=== PATIENT | female | born 1940 | race Caucasian/White ===

== ENCOUNTER 2018-08-20 00:16 | Inpatient (IN) | payer MEDICARE, OTHER ==
[~2018-08-20] VITALS: Ht 162.6 cm; Wt 74.1 kg
--- NOTE | 2018-08-20 00:30 | ED.ADGEN ---
Past History Past Medical History: A-Fib, Anemia, Anxiety, Arthritis, Bipolar, CAD, Dementia , Depression, GERD, High Cholesterol, Hypertension, IBS, Sciatica, UTI, Other Past Surgical History: Lumbar Laminectomy, Other Adult General Chief Complaint Chief Complaint ".. They sent me over.. I had made threats...".. " I said I was going to climb a tree and jump out of it.. " HPI HPI Patient is a 77 year old female resident of [facility] since 02-19-2017, who presents with hx of suicidal ideation. Pt. reported has hx of increase emotionally, more tearful, . Pt. has hx of depression, Bipolar, OA, GERD, Hemorrhoids, IBS, Restless leg syndrome, Insomnia, CAD, Chronic pain, HTN, Afib , Anemia, PVdz, DM, Hypothyroid, Anxiety, Spinal Stenosis, Chronic pain, Chronic urinary retention, stool incontinence, Dementia. No recent falls or injury. Pt. normally follows with Dr. Dunlap, and Dr. Tee. Pt. Son is Polo- [phone] Yusef Min. Pt. denies any changes of meds. Review of Systems Review of Systems Pt. has no specific complaints. Chronic pain. Constitutional: Denies fever or chills [] Eyes: Denies change in visual acuity, redness, or eye pain [] HENT: Denies nasal congestion or sore throat [] Respiratory: Denies cough or shortness of breath [] Cardiovascular: No additional information not addressed in HPI [] GI: Denies abdominal pain, nausea, vomiting, bloody stools or diarrhea [] : Denies dysuria or hematuria [] Musculoskeletal: Chronic back pain or joint pain [] Integument: Denies rash or skin lesions [] Neurologic: Denies headache, focal weakness or sensory changes [] Endocrine: Denies polyuria or polydipsia [] All other systems were reviewed and found to be within normal limits, except as documented in this note. Family History Family History Not currently available Current Medications Current Medications Current Medications Medications (Trade) Dose Ordered Sig/Elias Start Time Stop Time Status Last Admin Dose Admin Cephalexin HCl (Keflex) 500 mg 1X ONCE 08/20/18 02:00 08/20/18 02:01 DC 08/20/18 02:19 500 MG Magnesium Hydroxide (Milk Of Magnesia) 2,400 mg 1X ONCE 08/20/18 02:00 08/20/18 02:01 DC 08/20/18 02:19 2,400 MG See Nursing for NH meds. Allergies Allergies Allergies Coded Allergies Type Severity Reaction Last Updated Verified adhesive tape Allergy Unknown 08/20/18 Yes amantadine Allergy Unknown 08/20/18 Yes ciprofloxacin Allergy Unknown 08/20/18 Yes diazepam Allergy Unknown 08/20/18 Yes diltiazem Allergy Unknown 08/20/18 Yes fentanyl Allergy Unknown 08/20/18 Yes iodine Allergy Unknown 08/20/18 Yes latex Allergy Unknown 08/20/18 Yes oxycodone Allergy Unknown 08/20/18 Yes promethazine Allergy Unknown 08/20/18 Yes See Nursing Physical Exam Physical Exam Constitutional: , no marked emotional distress, non-toxic appearance. [] HENT: Normocephalic, atraumatic, bilateral external ears normal, oropharynx moist, no oral exudates, nose normal. Scar. Eyes: PERRLA, EOMI, conjunctiva normal, no discharge. [] Neck: Normal range of motion, no tenderness, supple, no stridor. [] Cardiovascular:Heart rate regular rhythm, systolic murmur []PMI to Lt. Lungs & Thorax: Bilateral breath sounds clear to auscultation [] Abdomen: Bowel sounds decreased, distended, tympanic, , soft, no tenderness, no masses, no pulsatile masses. [] Cha Skin: Warm, dry, no erythema, no rash. Poor turgor. Back: Lumbar muscle tenderness, no CVA tenderness. [] Multiple surgery scars. Extremities: No tenderness, no cyanosis, no clubbing, ROM intact, no edema. [] Arthritic changes. Rt. shoulder scar. Neurologic: Alert and oriented X 3,No hx of baseline motor function changes, no focal deficits noted from base line. Psychologic: Affect mild depressive , judgement normal, mood depressed. No specific functional suicidal plan. Current Patient Data Vital Signs Vital Signs Date Time Temp Pulse Resp B/P (MAP) Pulse Ox O2 Delivery O2 Flow Rate FiO2 08/20/18 00:16 97.6 79 93 Lab Results Laboratory Tests Test 08/20/18 00:25 08/20/18 00:35 Urine Collection Type U cath Urine Color Yellow Urine Clarity Cloudy Urine pH 8.0 Urine Specific [place] 1.020 Urine Protein 30 mg/dl (NEG-TRACE) Urine Glucose (UA) Neg mg/dL (NEG) Urine Ketones (Stick) Neg mg/dL (NEG) Urine Blood Small (NEG) Urine Nitrite Pos (NEG) Urine Bilirubin Neg (NEG) Urine Urobilinogen Dipstick 0.2 mg/dL (0.2 mg/dL) Urine Leukocyte Esterase Large (NEG) Urine RBC 1-2 /HPF (0-2) Urine WBC >40 /HPF (0-4) Urine Squamous Epithelial Cells None /LPF Urine Bacteria Many /HPF (0-FEW) White Blood Count 10.3 x10^3/uL (4.0-11.0) Red Blood Count 4.47 x10^6/uL (3.50-5.40) Hemoglobin 12.8 g/dL (12.0-15.5) Hematocrit 38.4 % (36.0-47.0) Mean Corpuscular Volume 86 fL (79-100) Mean Corpuscular Hemoglobin 29 pg (25-35) Mean Corpuscular Hemoglobin Concent 33 g/dL (31-37) Red Cell Distribution Width 15.0 % (11.5-14.5) H Platelet Count 249 x10^3/uL (140-400) Neutrophils (%) (Auto) 54 % (31-73) Lymphocytes (%) (Auto) 27 % (24-48) Monocytes (%) (Auto) 10 % (0-9) H Eosinophils (%) (Auto) 8 % (0-3) H Basophils (%) (Auto) 1 % (0-3) Neutrophils # (Auto) 5.5 x10^3uL (1.8-7.7) Lymphocytes # (Auto) 2.8 x10^3/uL (1.0-4.8) Monocytes # (Auto) 1.0 x10^3/uL (0.0-1.1) Eosinophils # (Auto) 0.9 x10^3/uL (0.0-0.7) H Basophils # (Auto) 0.1 x10^3/uL (0.0-0.2) Platelet Estimate Adequate (ADEQUATE) Erythrocyte Sedimentation Rate 10 (0-25) Prothrombin Time 10.2 SEC (9.4-11.4) Prothrombin Time INR 1.0 (0.9-1.1) PTT 23 SEC (23-33) Sodium Level 138 mmol/L (136-145) Potassium Level 3.9 mmol/L (3.5-5.1) Chloride Level 100 mmol/L (98-107) Carbon Dioxide Level 32 mmol/L (21-32) Anion Gap 6 (6-14) Blood Urea Nitrogen 17 mg/dL (7-20) Creatinine 0.8 mg/dL (0.6-1.0) Estimated GFR (Cockcroft-Gault) 69.9 Glucose Level 112 mg/dL (70-99) H Calcium Level 8.9 mg/dL (8.5-10.1) Magnesium Level 1.7 mg/dL (1.8-2.4) L Total Bilirubin 0.3 mg/dL (0.2-1.0) Direct Bilirubin 0.1 mg/dL (0.0-0.2) Aspartate Amino Transferase (AST) 19 U/L (15-37) Alanine Aminotransferase (ALT) 24 U/L (14-59) Alkaline Phosphatase 93 U/L (46-116) Creatine Kinase 54 U/L (26-192) Troponin I Quantitative < 0.017 ng/mL (0-0.055) RR-Mbs-F-Type Natriuretic Peptide 370 pg/mL (0-449) Total Protein 6.9 g/dL (6.4-8.2) Albumin 3.4 g/dL (3.4-5.0) Lipase 70 U/L (73-393) L EKG EKG My interpretation EKG shows a sinus rhythm at 73 bpm. No acute morphology appreciated[] Radiology/Procedures Radiology/Procedures My interpretation of chest portion of acute abdomen film shows elevated right diaphragm. No free air under the diaphragm. Increased stool. Right shoulder hardware. Scoliosis and kyphosis and lumbar hardware from previous surgeries.[] Course & Med Decision Making Course & Med Decision Making Pertinent Labs and Imaging studies reviewed. (See chart for details), Pt. admitted to Dr. Molina and consult to Dr. Glass for medical issues. [] Final Impression Final Impression 1. Suicidal Ideation 2. Depression 3. UTI 4. Hypomagnesium 5. Constipation 6. Chronic Pain Dragon Disclaimer Dragon Disclaimer This electronic medical record was generated, in whole or in part, using a voice recognition dictation system. PADMA CERON MD Aug 20, 2018 00:30
--- NOTE | 2018-08-20 00:48 | EKG ---
[address] [address] Test Date: 2018-08-20 Test Time: 00:43:33 Pat Name: MARGARET MCCRAY Department: Room: Gender: F Street Inspector: : 1940 Requested By: PADMA CERON Order Number: [id number] Reading MD: Ki Squires Measurements Intervals [place] Rate: 73 P: 38 VT: 176 QRS: 14 QRSD: 92 T: 24 QT: 422 QTc: 469 Interpretive Statements SINUS RHYTHM NORMAL ECG RI6.01 Unconfirmed report No previous ECG available for comparison Electronically Signed On 08-23-2018 10:17:04 CDT by Ki Squires
[2018-08-20 01:01] LABS: BILIRUBIN,URINE NEG (NEG); CLARITY,URINE CLOUDY; COLOR,URINE YELLOW; GLUCOSE,URINE NEG (NEG); NITRITE,URINE POS (NEG); UROBILINOGEN,URINE 0.2 mg/dL (0.2 mg/dL)
[2018-08-20 01:02] LABS: BACTERIA,URINE MANY /HPF (0-FEW); WBC,URINE >40 /HPF (0-4)
[2018-08-20 01:02] LABS: BASO # 0.1 x10^3/uL (0.0-0.2); BASO % 1 % (0-3); EOS # 0.9 x10^3/uL (0.0-0.7); EOS % 8 % (0-3); HEMATOCRIT 38.4 % (36.0-47.0); HEMOGLOBIN 12.8 g/dL (12.0-15.5); LYMPH # 2.8 x10^3/uL (1.0-4.8); LYMPH % 27 % (24-48); MEAN CORPUSCULAR HEMOGLOBIN 29 pg (25-35); MEAN CORPUSCULAR HGB CONC 33 g/dL (31-37); MEAN CORPUSCULAR VOLUME 86 fL (79-100); MONO % 10 % (0-9); NEUT # 5.5 x10^3uL (1.8-7.7); NEUT % 54 % (31-73); PLATELET COUNT 249 x10^3/uL (140-400); RED BLOOD COUNT 4.47 x10^6/uL (3.50-5.40); WHITE BLOOD COUNT 10.3 x10^3/uL (4.0-11.0)
[2018-08-20 01:14] LABS: ALBUMIN 3.4 g/dL (3.4-5.0); CALCIUM 8.9 mg/dL (8.5-10.1); CREATININE 0.8 mg/dL (0.6-1.0); DIRECT BILIRUBIN 0.1 mg/dL (0.0-0.2); GFR 69.9; MAGNESIUM 1.7 mg/dL (1.8-2.4); POTASSIUM 3.9 mmol/L (3.5-5.1); TOTAL BILIRUBIN 0.3 mg/dL (0.2-1.0); TOTAL PROTEIN 6.9 g/dL (6.4-8.2)
[2018-08-20 01:17] LABS: PLT ESTIMATE ADEQUATE (ADEQUATE)
[2018-08-20 01:50] LABS: SEDIMENTATION RATE 10 (0-25)
[2018-08-20] MEDS ORDERED: CEPHALEXIN 250 MG CAPSULE PO ONE (02:00)
[2018-08-20] MEDS ORDERED: MAGNESIUM HYDROXIDE 2,400 MG/30 ML ORAL.SUSP. PO ONE (02:00)
[2018-08-20] MEDS ORDERED: ACETAMINOPHEN 325 MG TABLET PO PRN (03:15)
[2018-08-20] MEDS ORDERED: METHYL SALICYLATE/MENTHOL TOPICAL OINTMENT 29GM TUBE. TP PRN (03:15)
[2018-08-20] MEDS ORDERED: MAGNESIUM HYDROXIDE 2,400 MG/30 ML ORAL.SUSP. PO PRN (03:15)
[2018-08-20] MEDS ORDERED: MAG HYDROX/AL HYDROX/SIMETH 30 ML ORAL.SUSP PO PRN (03:15)
[2018-08-20] MEDS ORDERED: PRAM0.255 PO (03:50)
[2018-08-20] MEDS ORDERED: METH1TAB20 PO (03:50)
[2018-08-20] MEDS ORDERED: HYDR10TA2 PO (03:50)
[2018-08-20] MEDS ORDERED: VENL150C PO (03:50)
[2018-08-20] MEDS ORDERED: MULT1TAB52 PO (03:50)
[2018-08-20] MEDS ORDERED: LATA2.5D3 EACHEYE (03:50)
[2018-08-20] MEDS ORDERED: LISI10TA2 PO (03:50)
[2018-08-20] MEDS ORDERED: SENN1TAB15 PO (03:50)
[2018-08-20] MEDS ORDERED: OXYC10TA PO (03:50)
[2018-08-20] MEDS ORDERED: CLOP75TA57 PO (03:50)
[2018-08-20] MEDS ORDERED: LINA145C PO (03:50)
[2018-08-20] MEDS ORDERED: MELA3TAB2 PO (03:50)
[2018-08-20] MEDS ORDERED: BISA5TAB4 PO (03:50)
[2018-08-20] MEDS ORDERED: METO25TA4 PO (03:50)
[2018-08-20] MEDS ORDERED: HYDR30CR61 TP (03:50)
[2018-08-20] MEDS ORDERED: LEVO25TA4 PO (03:50)
[2018-08-20] MEDS ORDERED: POLY17PO5 PO (03:50)
[2018-08-20] MEDS ORDERED: ASCO500T2 PO (03:50)
[2018-08-20] MEDS ORDERED: GABA600T2 PO (03:50)
[2018-08-20] MEDS ORDERED: HYDR59LO TP (03:50)
[2018-08-20] MEDS ORDERED: ROPI1TAB PO (03:50)
[2018-08-20] MEDS ORDERED: MAGN64TA7 PO (03:50)
[2018-08-20] MEDS ORDERED: ATOR10TA60 PO (03:50)
[2018-08-20] MEDS ORDERED: ONDA4TAB10 PO (03:50)
[2018-08-20] MEDS ORDERED: TRAZ-85 PO (03:50)
[2018-08-20 04:02] VITALS: BP 192/94
[2018-08-20] MEDS ORDERED: ONDANSETRON ODT 4 MG TAB.RAPDIS PO PRN (04:15)
[2018-08-20] MEDS: LEVOTHYROXINE 25 MCG TABLET. PO SCH (05:07)
[2018-08-20 06:29] VITALS: BP 153/96
--- NOTE | 2018-08-20 07:47 | RAD ---
Indication abdominal distention, diarrhea. TECHNIQUE: PA chest x-ray with 3 abdominal radiographs COMPARISON: None FINDINGS: Heart is normal in size. There is elevation of right hemidiaphragm which is nonspecific. Lungs are clear. No pneumothorax or pleural effusion. Large amount of diffuse colonic stool burden seen. No evidence of pneumoperitoneum. Mild scoliosis of the thoracolumbar spine. Status post fusion of the lower lumbar spine. 2 well-circumscribed round radiopacities are seen projecting over the left upper quadrant largest measuring 1.5 cm. IMPRESSION: 1. Large amount of colonic stool burden, patient may be constipated. No radiographic evidence of small bowel obstruction. 2. Couple of round radiopaque densities in the left upper quadrant, nonspecific may be external or pelvis in the stomach. Electronically signed by: Bryan Hernandez DO (08/20/2018 7:44 AM) [facility]
[2018-08-20] MEDS: MULTIVITAMIN with MINERAL TABLET. PO SCH (08:25)
[2018-08-20] MEDS: oxyCODONE IR 5 MG TABLET PO PRN ×3 (08:25→20:04)
[2018-08-20] MEDS: MAGNESIUM CHLORIDE ER 64 MG TABLET.ER PO SCH ×2 (08:25→20:01)
[2018-08-20] MEDS: CLOPIDOGREL BISULFATE 75 MG TABLET PO SCH (08:25)
[2018-08-20] MEDS: LISINOPRIL 10 MG TABLET PO SCH (08:26)
[2018-08-20] MEDS: METOPROLOL TART IMMED RELEASE 25 MG TABLET PO SCH ×2 (08:26→20:01)
[2018-08-20] MEDS: rOPINIRole 2 MG TABLET. PO SCH ×2 (08:26→20:00)
[2018-08-20] MEDS: CEPHALEXIN 250 MG CAPSULE PO SCH ×3 (08:26→20:00)
[2018-08-20] MEDS: ASCORBIC ACID 500 MG TABLET PO SCH (08:26)
[2018-08-20] MEDS: VENLAFAXINE 50 MG TABLET. PO SCH ×3 (08:27→20:01)
[2018-08-20] MEDS: GABAPENTIN 300 MG CAPSULE. PO SCH ×2 (08:27→20:01)
[2018-08-20] MEDS: SENNOSIDES/DOCUSATE 8.6/50MG TABLET. PO SCH ×2 (08:27→20:01)
[2018-08-20] MEDS: METHENAMINE HIPPURATE 1 GM TABLET PO SCH ×2 (08:28→20:08)
[2018-08-20] MEDS: LINACLOTIDE 145 MCG CAPSULE. PO SCH (08:28)
[2018-08-20] MEDS: HYDROCORTISONE 2.5% RECTAL CREAM 30GM TUBE. RC SCH ×2 (09:00→20:09)
[2018-08-20] MEDS ORDERED: POLYETHYLENE GLYCOL 3350 17 GM PACKET. PO PRN (09:00)
[2018-08-20] MEDS: BISACODYL TAB 5 MG TABLET.DR. PO PRN (10:59)
[2018-08-20 16:03] VITALS: BP 155/72
[2018-08-20] MEDS: PRAMIPEXOLE 0.25 MG TABLET. PO SCH (20:03)
[2018-08-20] MEDS: hydrOXYzine HCL 10 MG TABLET PO SCH (20:03)
[2018-08-20] MEDS: LACTOBACILLUS RHAMNOSUS GG 1 CAPSULE. PO SCH (20:03)
[2018-08-20] MEDS: traZODone 50 MG TABLET. PO SCH (20:08)
[2018-08-20] MEDS: MELATONIN 3 MG TABLET PO SCH (20:08)
[2018-08-20] MEDS: LATANOPROST 0.005% OPHTH SOLUTION 2.5ML BOTTLE. OU SCH (20:09)
--- NOTE | 2018-08-20 20:11 | HP ---
ADMIT DATE: 08/20/2018 PSYCHIATRIC ADMISSION HISTORY/EVALUATION IDENTIFYING DATA: The patient is a 77-year-old female who was referred to us from [facility] by Dr. Conrad, her primary care physician on account of marked worsening of her mood lability. She has been depressed, tearful, made suicidal statements, states that she had a plan, but would not share it with staff. Later, she told the staff that she wanted to make herself fall. She has been labile, tearful; at one point said she climbed onto a tree, jumped out of it, and landed on her head. CHIEF COMPLAINT: "I have gotten too much medical problems. One day I was in the restroom and found a lot of my intestines in my hand. I pressed the button, no one would come. Nothing is working out right. I might as well be ." The patient then added "I can't climb up a tree even though if I , I want to be up the tree jumping out." The patient currently denies current suicidal ideation. HISTORY OF PRESENT ILLNESS: Reportedly, the patient has a past diagnosis of bipolar disorder, but she denies this. She states she has been depressed in the past and has been getting depressed lately. She admits to sleep and appetite changes, overwhelmed by her medical problems and made the above statement, which she minimizes. Cognitively, she is reasonably intact. PAST PSYCHIATRIC HISTORY: As above. PAST MEDICAL HISTORY: Chronic pain; hypertension; impaired ambulation, in wheelchair; heart disease; atrial fibrillation; anemia; peripheral vascular disease; hyperlipidemia; diabetes mellitus; hypothyroidism; spinal stenosis; osteoarthritis; GERD; hemorrhoids; irritable bowel syndrome; atrial fibrillation; restless leg syndrome. DIET: Regular. ACCU-CHEKS: Daily. Takes medications whole, ambulates wheelchair walker. UA in the ER. Reflex to culture. ALLERGIES: ADHESIVE TAPE, AMANTADINE, CARDIZEM, CIPRO, CORDARONE, VALIUM, FENTANYL, IODINE, LATEX, OXYCODONE, PHENERGAN, REGLAN. CODE STATUS: DNR. CURRENT PSYCHOTROPICS: Melatonin 3 mg at bedtime, trazodone 50 at bedtime, Effexor 150 mg daily, Atarax 10 mg at bedtime. FAMILY HISTORY: Noncontributory. SOCIAL HISTORY: No history of alcohol, drug abuse, physical, sexual or elder abuse. She is not known to be a perpetrator. REACTION TO HOSPITALIZATION: The patient accepting of this. ASSETS: Placement at [facility], supportive family. The patient is being admitted by Yusef Min, her son and she signed herself as well. MENTAL STATUS EXAM: The patient was seen at length in her room. She is in a wheelchair. She was overwhelmed with her medical problems, prompting her statement of suicide. Speech coherent, abstraction fair. Computation, she was able to do one step on serial 7's, no more. Remembered 2/3 objects at 3 minutes. Attention span short. Language function intact. Mood and affect somewhat depressed. Again, no active suicidal ideation. LABORATORY DATA: Reviewed. IMPRESSION: Bipolar 1 disorder, depressed with psychotic features; major depressive disorder, rule out psychotic features; anxiety disorder, unspecified; impulse control disorder, unspecified; probable urinary tract infection. Rest diagnoses as above. PLAN: Admit to Geropsychiatry Unit at [facility]. I will see the patient daily individually from a psychiatric standpoint, medical followup with Dr. Glass/Dr. Chatterjee. Continue the patient on her current psychotropics, observe baseline and adjust as clinically indicated. ESTIMATED LENGTH OF STAY: 10-12 days. DISPOSITION: Discharge plans back to [facility] when stable. MAN Kamila ROYAL MD DR: ALLAN/luiz JOB#: [id number] / [id number]
[2018-08-20] MEDS: ATORVASTATIN CALCIUM 10 MG TABLET. PO SCH (20:22)
--- NOTE | 2018-08-20 23:08 | PDOC ---
Exam Note: Kt Note: Please also refer to the separate dictated note~for this date of service dictated separately.~Patient seen individually. Discussed the patient with Nursing staff reviewed the chart.~Reviewed interim history and current functioning. Reviewed vital signs,~Labs/ Radiology~and current medications noted below. Continue current treatment with the changes noted in the dictated addendum note Assessment: Vital Signs: Vital Signs Date Time Temp Pulse Resp B/P (MAP) Pulse Ox O2 Delivery O2 Flow Rate FiO2 08/20/18 21:04 18 08/20/18 20:04 92 08/20/18 20:01 81 155/72 08/20/18 16:03 97.2 Room Air I&O Intake and Output 08/20/18 07:00 Intake Total 0 ml Output Total 1300 ml Balance -1300 ml Intake Oral 0 ml Output Urine Total 1300 ml Labs: Laboratory Tests Test 08/20/18 00:25 08/20/18 00:35 Urine Collection Type U cath Urine Color Yellow Urine Clarity Cloudy Urine pH 8.0 Urine Specific [place] 1.020 Urine Protein 30 mg/dl (NEG-TRACE) Urine Glucose (UA) Neg mg/dL (NEG) Urine Ketones (Stick) Neg mg/dL (NEG) Urine Blood Small (NEG) Urine Nitrite Pos (NEG) Urine Bilirubin Neg (NEG) Urine Urobilinogen Dipstick 0.2 mg/dL (0.2 mg/dL) Urine Leukocyte Esterase Large (NEG) Urine RBC 1-2 /HPF (0-2) Urine WBC >40 /HPF (0-4) Urine Squamous Epithelial Cells None /LPF Urine Bacteria Many /HPF (0-FEW) White Blood Count 10.3 x10^3/uL (4.0-11.0) Red Blood Count 4.47 x10^6/uL (3.50-5.40) Hemoglobin 12.8 g/dL (12.0-15.5) Hematocrit 38.4 % (36.0-47.0) Mean Corpuscular Volume 86 fL (79-100) Mean Corpuscular Hemoglobin 29 pg (25-35) Mean Corpuscular Hemoglobin Concent 33 g/dL (31-37) Red Cell Distribution Width 15.0 % (11.5-14.5) H Platelet Count 249 x10^3/uL (140-400) Neutrophils (%) (Auto) 54 % (31-73) Lymphocytes (%) (Auto) 27 % (24-48) Monocytes (%) (Auto) 10 % (0-9) H Eosinophils (%) (Auto) 8 % (0-3) H Basophils (%) (Auto) 1 % (0-3) Neutrophils # (Auto) 5.5 x10^3uL (1.8-7.7) Lymphocytes # (Auto) 2.8 x10^3/uL (1.0-4.8) Monocytes # (Auto) 1.0 x10^3/uL (0.0-1.1) Eosinophils # (Auto) 0.9 x10^3/uL (0.0-0.7) H Basophils # (Auto) 0.1 x10^3/uL (0.0-0.2) Platelet Estimate Adequate (ADEQUATE) Erythrocyte Sedimentation Rate 10 (0-25) Prothrombin Time 10.2 SEC (9.4-11.4) Prothrombin Time INR 1.0 (0.9-1.1) PTT 23 SEC (23-33) Sodium Level 138 mmol/L (136-145) Potassium Level 3.9 mmol/L (3.5-5.1) Chloride Level 100 mmol/L (98-107) Carbon Dioxide Level 32 mmol/L (21-32) Anion Gap 6 (6-14) Blood Urea Nitrogen 17 mg/dL (7-20) Creatinine 0.8 mg/dL (0.6-1.0) Estimated GFR (Cockcroft-Gault) 69.9 Glucose Level 112 mg/dL (70-99) H Calcium Level 8.9 mg/dL (8.5-10.1) Magnesium Level 1.7 mg/dL (1.8-2.4) L Total Bilirubin 0.3 mg/dL (0.2-1.0) Direct Bilirubin 0.1 mg/dL (0.0-0.2) Aspartate Amino Transferase (AST) 19 U/L (15-37) Alanine Aminotransferase (ALT) 24 U/L (14-59) Alkaline Phosphatase 93 U/L (46-116) Creatine Kinase 54 U/L (26-192) Troponin I Quantitative < 0.017 ng/mL (0-0.055) LV-Gkp-B-Type Natriuretic Peptide 370 pg/mL (0-449) Total Protein 6.9 g/dL (6.4-8.2) Albumin 3.4 g/dL (3.4-5.0) Lipase 70 U/L (73-393) L Thyroid Stimulating Hormone (TSH) 1.934 uIU/mL (0.358-3.740) Treponema pallidum Antibody Nonreactive (Nonreactive) Current Medications: Meds: Current Medications Magnesium Hydroxide (Milk Of Magnesia) 2,400 mg 1X ONCE PO Last administered on 08/20/18at 02:19; Start 08/20/18 at 02:00; Stop 08/20/18 at 02:01; Status DC Cephalexin HCl (Keflex) 500 mg 1X ONCE PO Last administered on 08/20/18at 02: 19; Start 08/20/18 at 02:00; Stop 08/20/18 at 02:01; Status DC Cephalexin HCl (Keflex) 500 mg TID PO Last administered on 08/20/18at 20:00; Start 08/20/18 at 09:00 Acetaminophen (Tylenol) 650 mg PRN Q6HRS PRN PO PAIN / TEMP; Start 08/20/18 at 03:15 Multi-Ingredient Ointment (Analgesic [place]) 1 day[place] PRN QID PRN TP MUSCLE PAIN; Start 08/20/18 at 03:15 Al Hydroxide/Mg Hydroxide (Mylanta Plus Xs) 15 ml PRN AFTMEALHC PRN PO DYSPEPSIA; Start 08/20/18 at 03:15; Stop 08/20/18 at 17:00; Status DC Magnesium Hydroxide (Milk Of Magnesia) 2,400 mg PRN QHS PRN PO CONSTIPATION; Start 08/20/18 at 03:15; Stop 08/20/18 at 17:00; Status DC Ascorbic Acid (Vitamin C) 500 mg DAILY PO Last administered on 08/20/18at 08:26 ; Start 08/20/18 at 09:00 Bisacodyl (Dulcolax Tab) 5 mg PRN DAILY PRN PO CONSTIPATION Last administered on 08/20/18at 10:59; Start 08/20/18 at 03:45 Clopidogrel Bisulfate (Plavix) 75 mg DAILY PO Last administered on 08/20/18at 08:25; Start 08/20/18 at 09:00 Hydrocortisone (Proctosol-Hc) 1 day[place] BID RC Last administered on 08/20/18 20: 09; Start 08/20/18 at 09:00 Linaclotide (Linzess) 145 mcg DAILY PO Last administered on 08/20/18 08:28; Start 08/20/18 at 09:00 Lisinopril (Prinivil) 10 mg DAILY PO Last administered on 08/20/18 08:26; Start 08/20/18 at 09:00 Methenamine Hippurate (Hiprex) 1 gm BID PO Last administered on 08/20/18 20: 08; Start 08/20/18 at 09:00 Metoprolol Tartrate (Lopressor) 25 mg BID PO Last administered on 08/20/18 20 :01; Start 08/20/18 at 09:00 Ondansetron HCl (Zofran Odt) 4 mg PRN Q8HRS PRN PO NAUSEA/VOMITING; Start at 04:15 Senna/Docusate Sodium (Senna Plus) 1 tab BID PO Last administered on 20:01; Start 08/20/18 at 09:00 Atorvastatin Calcium (Lipitor) 10 mg QHS PO Last administered on 08/20/18 20: 22; Start 08/20/18 at 21:00 Gabapentin (Neurontin) 600 mg BID PO Last administered on 08/20/18 20:01; Start 08/20/18 at 09:00 Hydrocortisone (Cortaid) 1 dayton PRN BID PRN TP RASH RIGHT ARM; Start 08/20/18 at 04:30 Hydroxyzine HCl (Atarax) 10 mg QHS PO Last administered on 08/20/18 20:03; Start 08/20/18 at 21:00 Latanoprost (Xalatan) 1 drop QHS OU Last administered on 08/20/18 20:09; Start 08/20/18 at 21:00 Levothyroxine Sodium (Synthroid) 25 mcg DAILY06 PO Last administered on 05:07; Start 08/20/18 at 06:00 Magnesium Chloride (Mag Delay) 64 mg BID PO Last administered on 08/20/18 20: 01; Start 08/20/18 at 09:00 Melatonin 3 mg QHS PO Last administered on 08/20/18 20:08; Start 08/20/18 at 21:00 Multivitamins/ Calcium (Thera-M Plus) 1 tab DAILY PO Last administered on 08/20 08:25; Start 08/20/18 at 09:00 Oxycodone HCl (Roxicodone) 20 mg PRN Q4HRS PRN PO PAIN Last administered on 20:04; Start 08/20/18 at 06:00 Polyethylene Glycol (miraLAX) 17 gm PRN DAILY PRN PO CONSTIPATION; Start 08/20 at 09:00; Stop 08/21/18 at 09:00 Pramipexole Dihydrochloride (miraPEX) 0.125 mg QHS PO Last administered on 20:03; Start 08/20/18 at 21:00 Ropinirole HCl (Requip) 2 mg BID PO Last administered on 08/20/18 20:00; Start 08/20/18 at 09:00 Trazodone HCl (Desyrel) 50 mg QHS PO Last administered on 08/20/18 20:08; Start 08/20/18 at 21:00 Venlafaxine HCl (Effexor) 50 mg TID PO Last administered on 08/20/18 20:01; Start 08/20/18 at 09:00 Olanzapine (ZyPREXA ZYDIS) 2.5 mg PRN Q2HR PRN PO PSYCHOSIS Last administered on 08/20/18 14:08; Start 08/20/18 at 04:00 Lactobacillus Rhamnosus (Culturelle) 1 cap BID PO Last administered on 20:03; Start 08/20/18 at 21:00 Al Hydroxide/Mg Hydroxide (Mylanta Plus Xs) 15 ml DAILY PO ; Start 08/21/18 at 09:00 Magnesium Hydroxide (Milk Of Magnesia) 2,400 mg DAILY PO ; Start 08/21/18 at 09 :00 Polyethylene Glycol (miraLAX) 17 gm DAILY PO ; Start 08/21/18 at 09:00 Active Scripts Active Reported Anusol-Hc (Hydrocortisone) 30 Gm Cream..g. 1 [place] TP BID Hydrocortisone 59 Ml Lotion 1 [place] TP PRN BID PRN Mirapex (Pramipexole Di-Hcl) 0.25 Mg Tablet 0.125 Mg PO QHS Hydroxyzine Hcl 10 Mg Tablet 10 Mg PO QHS Plavix (Clopidogrel Bisulfate) 75 Mg Tablet 75 Mg PO DAILY Requip (Ropinirole Hcl) 1 Mg Tablet 2 Mg PO BID Linzess (Linaclotide) 145 Mcg Capsule 145 Mcg PO DAILY Vitamin C (Ascorbic Acid) 500 Mg Tablet 500 Mg PO DAILY Effexor Xr (Venlafaxine Hcl) 150 Mg Cap.er.24h 150 Mg PO DAILY Trazodone Hcl 50 Mg Tablet 50 Mg PO QHS Senna-S Tablet (Sennosides/Docusate Sodium) 1 Each Tablet 1 Tab PO BID Zofran Odt (Ondansetron) 4 Mg Tab.rapdis 4 Mg PO PRN Q8HRS PRN Multivitamins (Multivitamin) 1 Each Tablet 1 Tab PO DAILY Miralax (Polyethylene Glycol 3350) 17 Gm Powd.pack 17 Gm PO PRN DAILY PRN Metoprolol Tartrate 25 Mg Tablet 25 Mg PO BID Methenamine Hippurate 1 Gm Tablet 1 Gm PO BID Melatonin 3 Mg Tablet 3 Mg PO QHS Magnesium Chloride 64 Mg Tablet.dr 64 Mg PO BID Lisinopril 10 Mg Tablet 10 Mg PO DAILY Levothyroxine Sodium 25 Mcg Tablet 25 Mcg PO DAILYAC Latanoprost 2.5 Ml Drops 1 Drop EACHEYE QHS Gabapentin 600 Mg Tablet 600 Mg PO TID Bisacodyl 5 Mg Tablet.dr 5 Mg PO PRN DAILY PRN Atorvastatin Calcium 10 Mg Tablet 10 Mg PO DAILY Oxycodone Hcl 10 Mg Tablet 20 Mg PO PRN Q4HRS PRN I have reviewed the current psychotropics carefully including drug interactions. Risk benefit ratio favors no change other than as noted in my dictated progress note. Diagnosis: Problems: (1) Suicidal ideations (2) Anxiety disorder (3) Bipolar affective disorder, mixed (4) Impulse control disorder (5) Major depressive disorder, recurrent episode AIME ROYAL MD Aug 20, 2018 23:08
[2018-08-21 05:45] VITALS: BP 138/82
[2018-08-21] MEDS: LEVOTHYROXINE 25 MCG TABLET. PO SCH (06:16)
[2018-08-21 06:56] LABS: CALCIUM 9.4 mg/dL (8.5-10.1); CREATININE 0.8 mg/dL (0.6-1.0); GFR 69.9
[2018-08-21 06:58] LABS: BASO # 0.1 x10^3/uL (0.0-0.2); BASO % 1 % (0-3); EOS % 9 % (0-3); HEMATOCRIT 42.3 % (36.0-47.0); HEMOGLOBIN 14.2 g/dL (12.0-15.5); LYMPH # 2.9 x10^3/uL (1.0-4.8); LYMPH % 27 % (24-48); MEAN CORPUSCULAR HEMOGLOBIN 29 pg (25-35); MEAN CORPUSCULAR HGB CONC 34 g/dL (31-37); MEAN CORPUSCULAR VOLUME 86 fL (79-100); MONO # 0.8 x10^3/uL (0.0-1.1); MONO % 8 % (0-9); NEUT # 6.1 x10^3uL (1.8-7.7); NEUT % 56 % (31-73); PLATELET COUNT 246 x10^3/uL (140-400); RED CELL DISTRIBUTION WIDTH 15.5 % (11.5-14.5); WHITE BLOOD COUNT 10.9 x10^3/uL (4.0-11.0)
[2018-08-21] MEDS: oxyCODONE IR 5 MG TABLET PO PRN ×2 (07:21→12:45)
[2018-08-21] MEDS ORDERED: MAGNESIUM HYDROXIDE 2,400 MG/30 ML ORAL.SUSP. ONE (07:21)
[2018-08-21] MEDS: CEPHALEXIN 250 MG CAPSULE PO SCH ×3 (07:22→20:28)
[2018-08-21] MEDS: MAGNESIUM CHLORIDE ER 64 MG TABLET.ER PO SCH ×2 (07:22→20:28)
[2018-08-21] MEDS: MAGNESIUM HYDROXIDE 2,400 MG/30 ML ORAL.SUSP. PO SCH (07:22)
[2018-08-21] MEDS: POLYETHYLENE GLYCOL 3350 17 GM PACKET. PO SCH (07:22)
[2018-08-21] MEDS: METOPROLOL TART IMMED RELEASE 25 MG TABLET PO SCH ×2 (07:23→20:29)
[2018-08-21] MEDS: MULTIVITAMIN with MINERAL TABLET. PO SCH (07:23)
[2018-08-21] MEDS: LACTOBACILLUS RHAMNOSUS GG 1 CAPSULE. PO SCH ×2 (07:23→20:29)
[2018-08-21] MEDS: GABAPENTIN 300 MG CAPSULE. PO SCH ×2 (07:23→20:28)
[2018-08-21] MEDS: rOPINIRole 2 MG TABLET. PO SCH ×2 (07:23→20:28)
[2018-08-21] MEDS: CLOPIDOGREL BISULFATE 75 MG TABLET PO SCH (07:24)
[2018-08-21] MEDS: ASCORBIC ACID 500 MG TABLET PO SCH (07:24)
[2018-08-21] MEDS: VENLAFAXINE 50 MG TABLET. PO SCH ×3 (07:24→20:28)
[2018-08-21] MEDS: SENNOSIDES/DOCUSATE 8.6/50MG TABLET. PO SCH ×2 (07:24→20:29)
[2018-08-21] MEDS: LISINOPRIL 10 MG TABLET PO SCH (07:24)
[2018-08-21] MEDS: BISACODYL TAB 5 MG TABLET.DR. PO PRN (07:24)
[2018-08-21] MEDS: LINACLOTIDE 145 MCG CAPSULE. PO SCH (07:27)
[2018-08-21] MEDS: METHENAMINE HIPPURATE 1 GM TABLET PO SCH ×2 (07:27→20:28)
[2018-08-21 07:43] LABS: PLT ESTIMATE ADEQUATE (ADEQUATE)
[2018-08-21 07:44] LABS: PLATELET CLUMP PRESENT
[2018-08-21] MEDS: HYDROCORTISONE 2.5% RECTAL CREAM 30GM TUBE. RC SCH ×2 (09:00→20:30)
[2018-08-21] MEDS: MAG HYDROX/AL HYDROX/SIMETH 30 ML ORAL.SUSP PO SCH (10:38)
--- NOTE | 2018-08-21 14:01 | CONS ---
DATE OF CONSULTATION: 08/20/2018 REASON FOR CONSULTATION: Medical management. HISTORY OF PRESENT ILLNESS: The patient is a 77-year-old female patient, resident at [facility], who was [facility] as she is making suicidal ideation statements. She stated that she is going to climb a tree and jump out of it and land on her head. She has marked mood lability and she is tearful. PAST MEDICAL HISTORY: The patient has multiple medical problems including chronic pain syndrome. She has spinal stenosis with chronic constipation and urinary retention requiring indwelling Cha catheter. She has hypertension, coronary artery disease, AFib, tricuspid valve insufficiency, anemia, peripheral vascular disease, hyperlipidemia, type 2 diabetes and diabetic neuropathy, hypothyroidism. She does have osteoarthritis, hemorrhoids, irritable bowel syndrome, restless legs syndrome. PAST PSYCHIATRIC HISTORY: Significant for anxiety, bipolar disorder, and insomnia. ALLERGIES: She is allergic to ADHESIVE TAPE, AMANTADINE, CARDIZEM, CIPRO, CORDRAN, VALIUM, FENTANYL, IODINE, LATEX, PHENERGAN, and REGLAN. PAST SURGICAL HISTORY: Unremarkable. FAMILY HISTORY: Unremarkable. SOCIAL HISTORY: She is currently a resident at [facility]. She used to live with her son and her [id number]. She does not smoke, drink alcohol, or use any creation of drugs. MEDICATIONS: She is currently on following medications: She is on methenamine hippurate 1 gram p.o. b.i.d., Plavix 75 mg once a day, atorvastatin calcium 10 mg daily, metoprolol tartrate 25 mg p.o. b.i.d., lisinopril 10 mg p.o. daily, oxycodone 20 mg every 4 hours, gabapentin 600 mg 3 times a day, trazodone 50 mg at bedtime, venlafaxine for Effexor XR 150 mg daily, hydroxyzine 10 mg at bedtime, Mirapex 0.25 mg at bedtime, Requip 2 mg twice a day, magnesium chloride 64 mg p.o. b.i.d., latanoprost 1 drop to both eyes at bedtime, bisacodyl 10 mg tablet once a day, polyethylene glycol 17 gram daily p.r.n. for constipation, senna-S 1 tablet twice a day, ondansetron 4 mg every 8 hours, Linzess 145 mcg once a day, levothyroxine sodium 25 mcg once a day, hydrocortisone apply topically twice a day for her skin rash. She has ascorbic acid 500 mg daily, multivitamin 1 tablet once a day, melatonin 3 mg at bedtime. PHYSICAL EXAMINATION: GENERAL: When I examined her, she was sitting comfortably in her wheelchair, wheeling herself around, in no apparent respiratory distress. She was slightly pale, but no jaundice, cyanosis, or thyromegaly. No jugular venous distention. No limb edema. VITAL SIGNS: Her heart rate was 82, blood pressure was 153/96, temperature was 98.3, respiratory rate was 16, and oxygen saturation was 95%. HEAD, EYES, EARS, NOSE, AND THROAT: Showed normocephalic, atraumatic. NECK: Supple. HEART: Showed normal first and second heart sounds with no gallop, rub, or murmur. CHEST: Clear to auscultation. No crepitation or rhonchi. ABDOMEN: Distended, soft, nontender. No guarding or rigidity. No organomegaly. Hernial orifice intact. Bowel sounds normal. NEUROLOGIC: She is awake, alert, oriented to time, place and person. All cranial nerves intact. She moves all her extremities without difficulty. She is able to walk, but she is mostly chair bound. She has an indwelling Cha catheter. LABORATORY DATA: Her lab work showed a white cell count of 20,300, hemoglobin 12.8, hematocrit 38, MCV 86, and platelet count 249,000 with normal manual differential. Her prothrombin time was 10.2, INR of 1, aPTT was 23. Her chemistry showed a serum sodium 138, potassium 3.9, chloride 100, bicarbonate 32, anion gap of 6, BUN 17, creatinine 0.8, estimated GFR was 70 mL per minute. Her glucose was 112, calcium was 8.9, magnesium 1.7. Total bilirubin, AST, ALT, alkaline phosphatase were normal. Her total protein was 6.9, albumin 3.7. Her TSH was normal at 1.934. Her urinalysis showed that her urine was yellow, cloudy with a pH of 8, specific gravity of 1.020 with small amount of protein. The urine was negative for glucose, ketones, small amount of blood, positive for nitrite with large amount of leukocyte esterase, 1-2 rbcs, more than 40 wbc's, many bacteria. Her Treponema pallidum antibodies were nonreactive. She did have acute abdomen series, which showed that the heart size is normal. There is elevation of the right hemidiaphragm, which is nonspecific. Lungs are clear. No pneumothorax. No pleural effusion. Large amount of diffuse colonic stool burden seen. No evidence of pneumoperitoneum. Mild scoliosis of the thoracolumbar spine, status post fusion of the lower lumbar spine. There is 2 well circumscribed round radiopaque densities seen projecting over the left upper quadrant, largest measuring 1.5 cm. So the impression is that the patient has large amount of colonic stool burden. The patient may be constipated. No radiographic evidence of small bowel obstruction. A couple of round radiopaque densities in the left upper quadrant, nonspecific, maybe external or in the stomach. ASSESSMENT AND PLAN: In summary, this is a 77-year-old female patient, a resident at [facility], who was admitted on account of suicidal ideation, making statement that she is going to climb a tree and jump out of it and land on her head. She has marked mood lability and tearfulness. She has multiple medical problems including chronic back pain due to spinal stenosis with neuromuscular dysfunction of the bladder requiring indwelling Cha catheter. She has hypertension, coronary artery disease, atrial fibrillation, tricuspid valve insufficiency, anemia, peripheral vascular disease, hyperlipidemia, type 2 diabetes, and hypothyroidism. Psychologically, she is known to have major depressive disorder, anxiety, bipolar as well as insomnia. Her main complaint is pain and her hemorrhoids, chronic back pain for which she takes oxycodone 20 mg every 4 hours. She would like to have a leg bag, which seemed quite reasonable as her bag is tied to her chair. She nearly fell when she stood up. She also would like to have a pen or large paper so that she can use the sharpie. So, medically, she seemed to be generally stable. Her blood pressure is somewhat labile. She is on actually metoprolol 25 mg twice a day. We will continue to monitor her. She is also on lisinopril 10 mg once a day. I will continue with Keflex until we get the result of the culture and sensitivity and adjust the dose of antibiotic according to the result of culture and sensitivity. Thank you, Dr. Molina, for allowing me to participate in the care of this patient. FERNANDO MONZON MD DR: CHANDAN/luiz JOB#: [id number] / [id number]
[2018-08-21 16:34] VITALS: BP 135/63
[2018-08-21] MEDS: busPIRone 5 MG TABLET. PO SCH (18:03)
[2018-08-21 19:09] LABS: THYROXINE 8.4 ug/dL (4.5-12.0)
[2018-08-21 20:21] LABS: HEMOGLOBIN A1C 6.1 % (4.8-5.6)
[2018-08-21] MEDS: PRAMIPEXOLE 0.25 MG TABLET. PO SCH (20:28)
[2018-08-21] MEDS: traZODone 50 MG TABLET. PO SCH (20:28)
[2018-08-21] MEDS: MELATONIN 3 MG TABLET PO SCH (20:28)
[2018-08-21] MEDS: ATORVASTATIN CALCIUM 10 MG TABLET. PO SCH (20:28)
[2018-08-21] MEDS: LATANOPROST 0.005% OPHTH SOLUTION 2.5ML BOTTLE. OU SCH (20:28)
[2018-08-21] MEDS: hydrOXYzine HCL 10 MG TABLET PO SCH (20:29)
--- NOTE | 2018-08-21 23:20 | PDOC ---
Exam Note: Kt Note: Please also refer to the separate dictated note~for this date of service dictated separately.~Patient seen individually. Discussed the patient with Nursing staff reviewed the chart.~Reviewed interim history and current functioning. Reviewed vital signs,~Labs/ Radiology~and current medications noted below. Continue current treatment with the changes noted in the dictated addendum note Assessment: Vital Signs: Vital Signs Date Time Temp Pulse Resp B/P (MAP) Pulse Ox O2 Delivery O2 Flow Rate FiO2 08/21/18 20:29 80 135/63 08/21/18 16:34 97.5 20 95 08/20/18 16:03 Room Air I&O Intake and Output 08/21/18 07:00 Intake Total 820 ml Output Total 800 ml Balance 20 ml Intake Oral 820 ml Output Urine Total 800 ml Labs: Laboratory Tests Test 08/21/18 00:35 08/21/18 06:34 Iron Level 69 ug/dL (50-170) Total Iron Binding Capacity 348 ug/dL (250-450) Iron Saturation 20 % (15-34) Vitamin B12 Level 267 pg/mL (247-911) 25-Hydroxy Vitamin D Total 34.5 ng/mL (30-100) White Blood Count 10.9 x10^3/uL (4.0-11.0) Red Blood Count 4.90 x10^6/uL (3.50-5.40) Hemoglobin 14.2 g/dL (12.0-15.5) Hematocrit 42.3 % (36.0-47.0) Mean Corpuscular Volume 86 fL (79-100) Mean Corpuscular Hemoglobin 29 pg (25-35) Mean Corpuscular Hemoglobin Concent 34 g/dL (31-37) Red Cell Distribution Width 15.5 % (11.5-14.5) H Platelet Count 246 x10^3/uL (140-400) Neutrophils (%) (Auto) 56 % (31-73) Lymphocytes (%) (Auto) 27 % (24-48) Monocytes (%) (Auto) 8 % (0-9) Eosinophils (%) (Auto) 9 % (0-3) H Basophils (%) (Auto) 1 % (0-3) Neutrophils # (Auto) 6.1 x10^3uL (1.8-7.7) Lymphocytes # (Auto) 2.9 x10^3/uL (1.0-4.8) Monocytes # (Auto) 0.8 x10^3/uL (0.0-1.1) Eosinophils # (Auto) 1.0 x10^3/uL (0.0-0.7) H Basophils # (Auto) 0.1 x10^3/uL (0.0-0.2) Platelet Estimate Adequate (ADEQUATE) Platelet Clumps, EDTA Present Sodium Level 136 mmol/L (136-145) Potassium Level 4.0 mmol/L (3.5-5.1) Chloride Level 99 mmol/L (98-107) Carbon Dioxide Level 32 mmol/L (21-32) Anion Gap 5 (6-14) L Blood Urea Nitrogen 18 mg/dL (7-20) Creatinine 0.8 mg/dL (0.6-1.0) Estimated GFR (Cockcroft-Gault) 69.9 Glucose Level 93 mg/dL (70-99) Hemoglobin A1c 6.1 % (4.8-5.6) H Calcium Level 9.4 mg/dL (8.5-10.1) Magnesium Level 1.9 mg/dL (1.8-2.4) Triglycerides Level 105 mg/dL (0-150) Cholesterol Level 172 mg/dL (0-200) LDL Cholesterol, Calculated 78 mg/dL (0-100) VLDL Cholesterol, Calculated 21 mg/dL (0-40) Non-HDL Cholesterol Calculated 99 mg/dL (0-129) HDL Cholesterol 73 mg/dL (40-60) H Cholesterol/HDL Ratio 2.0 Thyroxine (T4) 8.4 ug/dL (4.5-12.0) Total Triiodothyronine (TT3) 98 ng/dL (71-180) Current Medications: Meds: Current Medications Magnesium Hydroxide (Milk Of Magnesia) 2,400 mg 1X ONCE PO Last administered on 08/20/18at 02:19; Start 08/20/18 at 02:00; Stop 08/20/18 at 02:01; Status DC Cephalexin HCl (Keflex) 500 mg 1X ONCE PO Last administered on 08/20/18at 02: 19; Start 08/20/18 at 02:00; Stop 08/20/18 at 02:01; Status DC Cephalexin HCl (Keflex) 500 mg TID PO Last administered on 08/21/18 20:28; Start 08/20/18 at 09:00 Acetaminophen (Tylenol) 650 mg PRN Q6HRS PRN PO PAIN / TEMP; Start 08/20/18 at 03:15 Multi-Ingredient Ointment (Analgesic [place]) 1 dayton PRN QID PRN TP MUSCLE PAIN; Start 08/20/18 at 03:15 Al Hydroxide/Mg Hydroxide (Mylanta Plus Xs) 15 ml PRN AFTMEALHC PRN PO DYSPEPSIA; Start 08/20/18 at 03:15; Stop 08/20/18 at 17:00; Status DC Magnesium Hydroxide (Milk Of Magnesia) 2,400 mg PRN QHS PRN PO CONSTIPATION; Start 08/20/18 at 03:15; Stop 08/20/18 at 17:00; Status DC Ascorbic Acid (Vitamin C) 500 mg DAILY PO Last administered on 08/21/18at 07:24 ; Start 08/20/18 at 09:00 Bisacodyl (Dulcolax Tab) 5 mg PRN DAILY PRN PO CONSTIPATION Last administered on 08/21/18at 07:24; Start 08/20/18 at 03:45 Clopidogrel Bisulfate (Plavix) 75 mg DAILY PO Last administered on 08/21/18at 07:24; Start 08/20/18 at 09:00 Hydrocortisone (Proctosol-Hc) 1 dayton BID RC Last administered on 08/21/18 20: 30; Start 08/20/18 at 09:00 Linaclotide (Linzess) 145 mcg DAILY PO Last administered on 08/21/18at 07:27; Start 08/20/18 at 09:00 Lisinopril (Prinivil) 10 mg DAILY PO Last administered on 08/21/18at 07:24; Start 08/20/18 at 09:00 Methenamine Hippurate (Hiprex) 1 gm BID PO Last administered on 08/21/18 20: 28; Start 08/20/18 at 09:00 Metoprolol Tartrate (Lopressor) 25 mg BID PO Last administered on 08/21/18at 20 :29; Start 08/20/18 at 09:00 Ondansetron HCl (Zofran Odt) 4 mg PRN Q8HRS PRN PO NAUSEA/VOMITING; Start at 04:15 Senna/Docusate Sodium (Senna Plus) 1 tab BID PO Last administered on 20:29; Start 08/20/18 at 09:00 Atorvastatin Calcium (Lipitor) 10 mg QHS PO Last administered on 08/21/18 20: 28; Start 08/20/18 at 21:00 Gabapentin (Neurontin) 600 mg BID PO Last administered on 08/21/18 20:28; Start 08/20/18 at 09:00 Hydrocortisone (Cortaid) 1 dayton PRN BID PRN TP RASH RIGHT ARM; Start 08/20/18 at 04:30 Hydroxyzine HCl (Atarax) 10 mg QHS PO Last administered on 08/21/18 20:29; Start 08/20/18 at 21:00 Latanoprost (Xalatan) 1 drop QHS OU Last administered on 08/21/18 20:28; Start 08/20/18 at 21:00 Levothyroxine Sodium (Synthroid) 25 mcg DAILY06 PO Last administered on 06:16; Start 08/20/18 at 06:00 Magnesium Chloride (Mag Delay) 64 mg BID PO Last administered on 08/21/18 20: 28; Start 08/20/18 at 09:00 Melatonin 3 mg QHS PO Last administered on 08/21/18 20:28; Start 08/20/18 at 21:00 Multivitamins/ Calcium (Thera-M Plus) 1 tab DAILY PO Last administered on 08/21 07:23; Start 08/20/18 at 09:00 Oxycodone HCl (Roxicodone) 20 mg PRN Q4HRS PRN PO PAIN Last administered on 12:45; Start 08/20/18 at 06:00 Polyethylene Glycol (miraLAX) 17 gm PRN DAILY PRN PO CONSTIPATION; Start 08/20 at 09:00; Stop 08/21/18 at 09:00; Status DC Pramipexole Dihydrochloride (miraPEX) 0.125 mg QHS PO Last administered on 20:28; Start 08/20/18 at 21:00 Ropinirole HCl (Requip) 2 mg BID PO Last administered on 08/21/18 20:28; Start 08/20/18 at 09:00 Trazodone HCl (Desyrel) 50 mg QHS PO Last administered on 08/21/18 20:28; Start 08/20/18 at 21:00 Venlafaxine HCl (Effexor) 50 mg TID PO Last administered on 08/21/18 20:28; Start 08/20/18 at 09:00 Olanzapine (ZyPREXA ZYDIS) 2.5 mg PRN Q2HR PRN PO PSYCHOSIS Last administered on 08/20/18 14:08; Start 08/20/18 at 04:00 Lactobacillus Rhamnosus (Culturelle) 1 cap BID PO Last administered on 20:29; Start 08/20/18 at 21:00 Al Hydroxide/Mg Hydroxide (Mylanta Plus Xs) 15 ml DAILY PO Last administered on 08/21/18 10:38; Start 08/21/18 at 09:00 Magnesium Hydroxide (Milk Of Magnesia) 2,400 mg DAILY PO Last administered on 08/21/18 07:22; Start 08/21/18 at 09:00 Polyethylene Glycol (miraLAX) 17 gm DAILY PO Last administered on 08/21/18 07 :22; Start 08/21/18 at 09:00 Magnesium Hydroxide (Milk Of Magnesia) 2,400 mg STK-MED ONCE .ROUTE Last administered on 08/21/18 07:29; Start 08/21/18 at 07:21; Stop 08/21/18 at 07 :22; Status DC Buspirone HCl (Buspar) 5 mg BID@0900,1700 PO Last administered on 08/21/18 18 :03; Start 08/21/18 at 17:00 Active Scripts Active Reported Anusol-Hc (Hydrocortisone) 30 Gm Cream..g. 1 [place] TP BID Hydrocortisone 59 Ml Lotion 1 [place] TP PRN BID PRN Mirapex (Pramipexole Di-Hcl) 0.25 Mg Tablet 0.125 Mg PO QHS Hydroxyzine Hcl 10 Mg Tablet 10 Mg PO QHS Plavix (Clopidogrel Bisulfate) 75 Mg Tablet 75 Mg PO DAILY Requip (Ropinirole Hcl) 1 Mg Tablet 2 Mg PO BID Linzess (Linaclotide) 145 Mcg Capsule 145 Mcg PO DAILY Vitamin C (Ascorbic Acid) 500 Mg Tablet 500 Mg PO DAILY Effexor Xr (Venlafaxine Hcl) 150 Mg Cap.er.24h 150 Mg PO DAILY Trazodone Hcl 50 Mg Tablet 50 Mg PO QHS Senna-S Tablet (Sennosides/Docusate Sodium) 1 Each Tablet 1 Tab PO BID Zofran Odt (Ondansetron) 4 Mg Tab.rapdis 4 Mg PO PRN Q8HRS PRN Multivitamins (Multivitamin) 1 Each Tablet 1 Tab PO DAILY Miralax (Polyethylene Glycol 3350) 17 Gm Powd.pack 17 Gm PO PRN DAILY PRN Metoprolol Tartrate 25 Mg Tablet 25 Mg PO BID Methenamine Hippurate 1 Gm Tablet 1 Gm PO BID Melatonin 3 Mg Tablet 3 Mg PO QHS Magnesium Chloride 64 Mg Tablet.dr 64 Mg PO BID Lisinopril 10 Mg Tablet 10 Mg PO DAILY Levothyroxine Sodium 25 Mcg Tablet 25 Mcg PO DAILYAC Latanoprost 2.5 Ml Drops 1 Drop EACHEYE QHS Gabapentin 600 Mg Tablet 600 Mg PO TID Bisacodyl 5 Mg Tablet.dr 5 Mg PO PRN DAILY PRN Atorvastatin Calcium 10 Mg Tablet 10 Mg PO DAILY Oxycodone Hcl 10 Mg Tablet 20 Mg PO PRN Q4HRS PRN I have reviewed the current psychotropics carefully including drug interactions. Risk benefit ratio favors no change other than as noted in my dictated progress note. Diagnosis: Problems: (1) Suicidal ideations (2) Anxiety disorder (3) Bipolar affective disorder, mixed (4) Impulse control disorder (5) Major depressive disorder, recurrent episode AIME ROYAL MD Aug 21, 2018 23:20
[2018-08-22 05:36] VITALS: BP 167/82
[2018-08-22] MEDS: LEVOTHYROXINE 25 MCG TABLET. PO SCH (06:16)
[2018-08-22] MEDS: busPIRone 5 MG TABLET. PO SCH ×2 (07:59→17:08)
[2018-08-22] MEDS: POLYETHYLENE GLYCOL 3350 17 GM PACKET. PO SCH (07:59)
[2018-08-22] MEDS: MAGNESIUM HYDROXIDE 2,400 MG/30 ML ORAL.SUSP. PO SCH (07:59)
[2018-08-22] MEDS: MULTIVITAMIN with MINERAL TABLET. PO SCH (08:00)
[2018-08-22] MEDS: CEPHALEXIN 250 MG CAPSULE PO SCH ×3 (08:00→22:03)
[2018-08-22] MEDS: SENNOSIDES/DOCUSATE 8.6/50MG TABLET. PO SCH ×2 (08:00→22:04)
[2018-08-22] MEDS: GABAPENTIN 300 MG CAPSULE. PO SCH ×2 (08:00→22:04)
[2018-08-22] MEDS: LISINOPRIL 10 MG TABLET PO SCH (08:00)
[2018-08-22] MEDS: MAGNESIUM CHLORIDE ER 64 MG TABLET.ER PO SCH ×2 (08:00→22:04)
[2018-08-22] MEDS: LACTOBACILLUS RHAMNOSUS GG 1 CAPSULE. PO SCH ×2 (08:01→22:04)
[2018-08-22] MEDS: rOPINIRole 2 MG TABLET. PO SCH ×2 (08:01→22:03)
[2018-08-22] MEDS: VENLAFAXINE 50 MG TABLET. PO SCH ×3 (08:01→22:03)
[2018-08-22] MEDS: ASCORBIC ACID 500 MG TABLET PO SCH (08:01)
[2018-08-22] MEDS: METHENAMINE HIPPURATE 1 GM TABLET PO SCH ×2 (08:01→22:14)
[2018-08-22] MEDS: METOPROLOL TART IMMED RELEASE 25 MG TABLET PO SCH ×2 (08:01→22:05)
[2018-08-22] MEDS: CLOPIDOGREL BISULFATE 75 MG TABLET PO SCH (08:01)
[2018-08-22] MEDS: LINACLOTIDE 145 MCG CAPSULE. PO SCH (08:01)
[2018-08-22] MEDS: MAG HYDROX/AL HYDROX/SIMETH 30 ML ORAL.SUSP PO SCH (08:07)
[2018-08-22] MEDS: HYDROCORTISONE 2.5% RECTAL CREAM 30GM TUBE. RC SCH ×2 (08:07→22:15)
[2018-08-22] MEDS: oxyCODONE IR 5 MG TABLET PO PRN ×4 (08:08→22:32)
[2018-08-22 16:08] VITALS: BP 166/82
--- NOTE | 2018-08-22 20:12 | PN ---
DATE: 08/21/2018 PSYCHIATRIC PROGRESS NOTE This late entry 08/21/2018 covers elements not covered in my initial note. SUBJECTIVE: I met with the patient in the evening. The patient slept 7 hours previous evening. She appeared somewhat depressed, withdrawn at times, was reading a picture book about different kinds of homes in [place] and was quite animated with this, verbal, talked with me at length about this and various things she read in the book. She seems quite connected. She has refused to go to the groups and I addressed this with her, remained somewhat anxious. REVIEW OF SYSTEMS: Ambulation impaired with wheelchair. No CV, , pulmonary, eye, ENT system symptoms on review. Reliability varies. MENTAL STATUS EXAM: Oriented to herself and situation. Speech is coherent, abstraction fair, computation impaired, language function intact. Attention span short. Thought processes are goal directed. No suicidal or homicidal ideation and I hardly questioned her on this. LABORATORY DATA: Reviewed. IMPRESSION: Major depressive disorder with psychotic features; bipolar 1 disorder, mixed. Rest unchanged from initial note. PLAN: Change from initial note. We will adjust her Seroquel and BuSpar 5 mg twice a day for anxiety. MAN Kamila ROYAL MD DR: ALLAN/luiz JOB#: [id number] / [id number]
[2018-08-22] MEDS: PRAMIPEXOLE 0.25 MG TABLET. PO SCH (22:03)
[2018-08-22] MEDS: hydrOXYzine HCL 10 MG TABLET PO SCH (22:03)
[2018-08-22] MEDS: MELATONIN 3 MG TABLET PO SCH (22:04)
[2018-08-22] MEDS: ATORVASTATIN CALCIUM 10 MG TABLET. PO SCH (22:04)
[2018-08-22] MEDS: LATANOPROST 0.005% OPHTH SOLUTION 2.5ML BOTTLE. OU SCH (22:14)
[2018-08-22] MEDS: traZODone 50 MG TABLET. PO SCH (22:14)
--- NOTE | 2018-08-22 23:08 | PDOC ---
Exam Note: Kt Note: Please also refer to the separate dictated note~for this date of service dictated separately.~Patient seen individually. Discussed the patient with Nursing staff reviewed the chart.~Reviewed interim history and current functioning. Reviewed vital signs,~Labs/ Radiology~and current medications noted below. Continue current treatment with the changes noted in the dictated addendum note Assessment: Vital Signs: Vital Signs Date Time Temp Pulse Resp B/P (MAP) Pulse Ox O2 Delivery O2 Flow Rate FiO2 08/22/18 22:32 Room Air 08/22/18 22:05 88 166/82 08/22/18 17:08 93 08/22/18 16:08 97.5 19 I&O Intake and Output 08/22/18 07:00 Intake Total 1280 ml Output Total 1350 ml Balance -70 ml Intake Oral 1280 ml Output Urine Total 1350 ml Labs: Laboratory Tests Test 08/22/18 07:20 Glucose (Fingerstick) 108 mg/dL (70-99) H Current Medications: Meds: Current Medications Magnesium Hydroxide (Milk Of Magnesia) 2,400 mg 1X ONCE PO Last administered on 08/20/18at 02:19; Start 08/20/18 at 02:00; Stop 08/20/18 at 02:01; Status DC Cephalexin HCl (Keflex) 500 mg 1X ONCE PO Last administered on 08/20/18at 02: 19; Start 08/20/18 at 02:00; Stop 08/20/18 at 02:01; Status DC Cephalexin HCl (Keflex) 500 mg TID PO Last administered on 08/22/18at 22:03; Start 08/20/18 at 09:00 Acetaminophen (Tylenol) 650 mg PRN Q6HRS PRN PO PAIN / TEMP; Start 08/20/18 at 03:15 Multi-Ingredient Ointment (Analgesic [place]) 1 dayton PRN QID PRN TP MUSCLE PAIN; Start 08/20/18 at 03:15 Al Hydroxide/Mg Hydroxide (Mylanta Plus Xs) 15 ml PRN AFTMEALHC PRN PO DYSPEPSIA; Start 08/20/18 at 03:15; Stop 08/20/18 at 17:00; Status DC Magnesium Hydroxide (Milk Of Magnesia) 2,400 mg PRN QHS PRN PO CONSTIPATION; Start 08/20/18 at 03:15; Stop 08/20/18 at 17:00; Status DC Ascorbic Acid (Vitamin C) 500 mg DAILY PO Last administered on 08/22/18at 08:01 ; Start 08/20/18 at 09:00 Bisacodyl (Dulcolax Tab) 5 mg PRN DAILY PRN PO CONSTIPATION Last administered on 08/21/18at 07:24; Start 08/20/18 at 03:45 Clopidogrel Bisulfate (Plavix) 75 mg DAILY PO Last administered on 08/22/18at 08 :01; Start 08/20/18 at 09:00 Hydrocortisone (Proctosol-Hc) 1 dayton BID RC Last administered on 08/22/18 22:15 ; Start 08/20/18 at 09:00 Linaclotide (Linzess) 145 mcg DAILY PO Last administered on 08/22/18at 08:01; Start 08/20/18 at 09:00 Lisinopril (Prinivil) 10 mg DAILY PO Last administered on 08/22/18at 08:00; Start 08/20/18 at 09:00 Methenamine Hippurate (Hiprex) 1 gm BID PO Last administered on 08/22/18at 22:14 ; Start 08/20/18 at 09:00 Metoprolol Tartrate (Lopressor) 25 mg BID PO Last administered on 08/22/18at 22: 05; Start 08/20/18 at 09:00 Ondansetron HCl (Zofran Odt) 4 mg PRN Q8HRS PRN PO NAUSEA/VOMITING; Start at 04:15 Senna/Docusate Sodium (Senna Plus) 1 tab BID PO Last administered on 08/22/18at 22:04; Start 08/20/18 at 09:00 Atorvastatin Calcium (Lipitor) 10 mg QHS PO Last administered on 08/22/18 22: 04; Start 08/20/18 at 21:00 Gabapentin (Neurontin) 600 mg BID PO Last administered on 08/22/18at 22:04; Start 08/20/18 at 09:00 Hydrocortisone (Cortaid) 1 dayton PRN BID PRN TP RASH RIGHT ARM; Start 08/20/18 at 04:30 Hydroxyzine HCl (Atarax) 10 mg QHS PO Last administered on 08/22/18at 22:03; Start 08/20/18 at 21:00 Latanoprost (Xalatan) 1 drop QHS OU Last administered on 08/22/18 22:14; Start 08/20/18 at 21:00 Levothyroxine Sodium (Synthroid) 25 mcg DAILY06 PO Last administered on 06:16; Start 08/20/18 at 06:00 Magnesium Chloride (Mag Delay) 64 mg BID PO Last administered on 08/22/18 22: 04; Start 08/20/18 at 09:00 Melatonin 3 mg QHS PO Last administered on 08/22/18 22:04; Start 08/20/18 at 21:00 Multivitamins/ Calcium (Thera-M Plus) 1 tab DAILY PO Last administered on 08:00; Start 08/20/18 at 09:00 Oxycodone HCl (Roxicodone) 20 mg PRN Q4HRS PRN PO PAIN Last administered on 22:32; Start 08/20/18 at 06:00 Polyethylene Glycol (miraLAX) 17 gm PRN DAILY PRN PO CONSTIPATION; Start 08/20 at 09:00; Stop 08/21/18 at 09:00; Status DC Pramipexole Dihydrochloride (miraPEX) 0.125 mg QHS PO Last administered on 08/22 22:03; Start 08/20/18 at 21:00 Ropinirole HCl (Requip) 2 mg BID PO Last administered on 08/22/18 22:03; Start 08/20/18 at 09:00 Trazodone HCl (Desyrel) 50 mg QHS PO Last administered on 08/22/18 22:14; Start 08/20/18 at 21:00 Venlafaxine HCl (Effexor) 50 mg TID PO Last administered on 08/22/18 22:03; Start 08/20/18 at 09:00 Olanzapine (ZyPREXA ZYDIS) 2.5 mg PRN Q2HR PRN PO PSYCHOSIS Last administered on 08/20/18 14:08; Start 08/20/18 at 04:00 Lactobacillus Rhamnosus (Culturelle) 1 cap BID PO Last administered on at 22:04; Start 08/20/18 at 21:00 Al Hydroxide/Mg Hydroxide (Mylanta Plus Xs) 15 ml DAILY PO Last administered on 08/22/18at 08:07; Start 08/21/18 at 09:00 Magnesium Hydroxide (Milk Of Magnesia) 2,400 mg DAILY PO Last administered on 08/22/18at 07:59; Start 08/21/18 at 09:00 Polyethylene Glycol (miraLAX) 17 gm DAILY PO Last administered on 08/22/18at 07: 59; Start 08/21/18 at 09:00 Magnesium Hydroxide (Milk Of Magnesia) 2,400 mg STK-MED ONCE .ROUTE Last administered on 08/21/18at 07:29; Start 08/21/18 at 07:21; Stop 08/21/18 at 07 :22; Status DC Buspirone HCl (Buspar) 5 mg BID@0900,1700 PO Last administered on 08/22/18at 17: 08; Start 08/21/18 at 17:00 Active Scripts Active Reported Anusol-Hc (Hydrocortisone) 30 Gm Cream..g. 1 [place] TP BID Hydrocortisone 59 Ml Lotion 1 [place] TP PRN BID PRN Mirapex (Pramipexole Di-Hcl) 0.25 Mg Tablet 0.125 Mg PO QHS Hydroxyzine Hcl 10 Mg Tablet 10 Mg PO QHS Plavix (Clopidogrel Bisulfate) 75 Mg Tablet 75 Mg PO DAILY Requip (Ropinirole Hcl) 1 Mg Tablet 2 Mg PO BID Linzess (Linaclotide) 145 Mcg Capsule 145 Mcg PO DAILY Vitamin C (Ascorbic Acid) 500 Mg Tablet 500 Mg PO DAILY Effexor Xr (Venlafaxine Hcl) 150 Mg Cap.er.24h 150 Mg PO DAILY Trazodone Hcl 50 Mg Tablet 50 Mg PO QHS Senna-S Tablet (Sennosides/Docusate Sodium) 1 Each Tablet 1 Tab PO BID Zofran Odt (Ondansetron) 4 Mg Tab.rapdis 4 Mg PO PRN Q8HRS PRN Multivitamins (Multivitamin) 1 Each Tablet 1 Tab PO DAILY Miralax (Polyethylene Glycol 3350) 17 Gm Powd.pack 17 Gm PO PRN DAILY PRN Metoprolol Tartrate 25 Mg Tablet 25 Mg PO BID Methenamine Hippurate 1 Gm Tablet 1 Gm PO BID Melatonin 3 Mg Tablet 3 Mg PO QHS Magnesium Chloride 64 Mg Tablet. 64 Mg PO BID Lisinopril 10 Mg Tablet 10 Mg PO DAILY Levothyroxine Sodium 25 Mcg Tablet 25 Mcg PO DAILYAC Latanoprost 2.5 Ml Drops 1 Drop EACHEYE QHS Gabapentin 600 Mg Tablet 600 Mg PO TID Bisacodyl 5 Mg Tablet.dr 5 Mg PO PRN DAILY PRN Atorvastatin Calcium 10 Mg Tablet 10 Mg PO DAILY Oxycodone Hcl 10 Mg Tablet 20 Mg PO PRN Q4HRS PRN I have reviewed the current psychotropics carefully including drug interactions. Risk benefit ratio favors no change other than as noted in my dictated progress note. Diagnosis: Problems: (1) Suicidal ideations (2) Anxiety disorder (3) Bipolar affective disorder, mixed (4) Impulse control disorder (5) Major depressive disorder, recurrent episode AIME ROYAL MD Aug 22, 2018 23:08
[2018-08-23] MEDS: LEVOTHYROXINE 25 MCG TABLET. PO SCH (05:15)
[2018-08-23] MEDS: oxyCODONE IR 5 MG TABLET PO PRN ×4 (05:30→20:53)
[2018-08-23 06:18] VITALS: BP 151/88
[2018-08-23] MEDS: MAG HYDROX/AL HYDROX/SIMETH 30 ML ORAL.SUSP PO SCH (08:15)
[2018-08-23] MEDS: POLYETHYLENE GLYCOL 3350 17 GM PACKET. PO SCH (08:15)
[2018-08-23] MEDS: CEPHALEXIN 250 MG CAPSULE PO SCH ×3 (08:16→19:46)
[2018-08-23] MEDS: MAGNESIUM CHLORIDE ER 64 MG TABLET.ER PO SCH ×2 (08:16→19:45)
[2018-08-23] MEDS: GABAPENTIN 300 MG CAPSULE. PO SCH ×2 (08:16→19:45)
[2018-08-23] MEDS: LACTOBACILLUS RHAMNOSUS GG 1 CAPSULE. PO SCH ×2 (08:16→19:45)
[2018-08-23] MEDS: VENLAFAXINE 50 MG TABLET. PO SCH ×3 (08:16→19:45)
[2018-08-23] MEDS: MULTIVITAMIN with MINERAL TABLET. PO SCH (08:16)
[2018-08-23] MEDS: busPIRone 5 MG TABLET. PO SCH ×3 (08:17→19:49)
[2018-08-23] MEDS: ASCORBIC ACID 500 MG TABLET PO SCH (08:17)
[2018-08-23] MEDS: MAGNESIUM HYDROXIDE 2,400 MG/30 ML ORAL.SUSP. PO SCH (08:17)
[2018-08-23] MEDS: LINACLOTIDE 145 MCG CAPSULE. PO SCH (08:17)
[2018-08-23] MEDS: METHENAMINE HIPPURATE 1 GM TABLET PO SCH ×2 (08:17→19:47)
[2018-08-23] MEDS: CLOPIDOGREL BISULFATE 75 MG TABLET PO SCH (08:17)
[2018-08-23] MEDS: SENNOSIDES/DOCUSATE 8.6/50MG TABLET. PO SCH ×2 (08:17→19:46)
[2018-08-23] MEDS: METOPROLOL TART IMMED RELEASE 25 MG TABLET PO SCH ×2 (08:17→19:45)
[2018-08-23] MEDS: rOPINIRole 2 MG TABLET. PO SCH ×2 (08:18→19:46)
[2018-08-23] MEDS: LISINOPRIL 10 MG TABLET PO SCH (08:18)
[2018-08-23] MEDS: HYDROCORTISONE 2.5% RECTAL CREAM 30GM TUBE. RC SCH (08:21)
[2018-08-23] MEDS: HYDROCORTISONE 1% TOPICAL CREAM 30GM TUBE. TP PRN ×2 (11:56→19:50)
[2018-08-23 15:48] VITALS: BP 143/84
[2018-08-23] MEDS: MELATONIN 3 MG TABLET PO SCH (19:44)
[2018-08-23] MEDS: LATANOPROST 0.005% OPHTH SOLUTION 2.5ML BOTTLE. OU SCH (19:44)
[2018-08-23] MEDS: ATORVASTATIN CALCIUM 10 MG TABLET. PO SCH (19:44)
[2018-08-23] MEDS: hydrOXYzine HCL 10 MG TABLET PO SCH (19:46)
[2018-08-23] MEDS: traZODone 50 MG TABLET. PO SCH (19:46)
[2018-08-23] MEDS: PRAMIPEXOLE 0.25 MG TABLET. PO SCH (19:47)
--- NOTE | 2018-08-23 21:05 | PN ---
DATE: 08/22/2018 PSYCHIATRIC PROGRESS NOTE This late entry 08/22/2018 covers elements not covered in my initial note. SUBJECTIVE: I met with the patient in the evening and she was staffed at a treatment team meeting with the entire team in the morning. Reviewed her history at length. She slept 6 hours previous evening, has had some chronic constipation, which is being addressed and abdominal scan showed large amount of bowel matter, but no obstructions. She states she hates her facility and justifies some of what prompted her agitation, prompting admission. REVIEW OF SYSTEMS: Ambulation impaired, in wheelchair. No CV, , pulmonary, eye system symptoms on review. Does have the constipation. She is quite verbal, somewhat anxious as I met with her, reasonably oriented. Abstraction fair. Computation, one step on serial 7's. No active suicidal or homicidal ideation. Attention span is short. LABORATORY DATA: Reviewed. IMPRESSION: Bipolar 1 disorder, unspecified; history of major depressive disorder; anxiety disorder, unspecified. PLAN: From a psychiatric standpoint, no change from initial note. Treat the constipation per Dr. Glass. Continue the Effexor, BuSpar was initiated. We will adjust it gradually, remains on Atarax 10 mg at bedtime. MAN Kamila ROYAL MD DR: ALLAN/luiz JOB#: [id number] / [id number]
--- NOTE | 2018-08-23 23:05 | PDOC ---
Exam Note: Kt Note: Please also refer to the separate dictated note~for this date of service dictated separately.~Patient seen individually. Discussed the patient with Nursing staff reviewed the chart.~Reviewed interim history and current functioning. Reviewed vital signs,~Labs/ Radiology~and current medications noted below. Continue current treatment with the changes noted in the dictated addendum note Assessment: Vital Signs: Vital Signs Date Time Temp Pulse Resp B/P (MAP) Pulse Ox O2 Delivery O2 Flow Rate FiO2 08/23/18 20:53 93 08/23/18 19:45 80 143/84 08/23/18 15:48 98.8 19 Room Air I&O Intake and Output 08/23/18 07:00 Intake Total 840 ml Output Total 400 ml Balance 440 ml Intake Oral 840 ml Output Urine Total 400 ml # Bowel Movements 3 Current Medications: Meds: Current Medications Magnesium Hydroxide (Milk Of Magnesia) 2,400 mg 1X ONCE PO Last administered on 08/20/18at 02:19; Start 08/20/18 at 02:00; Stop 08/20/18 at 02:01; Status DC Cephalexin HCl (Keflex) 500 mg 1X ONCE PO Last administered on 08/20/18at 02: 19; Start 08/20/18 at 02:00; Stop 08/20/18 at 02:01; Status DC Cephalexin HCl (Keflex) 500 mg TID PO Last administered on 08/23/18at 19:46; Start 08/20/18 at 09:00 Acetaminophen (Tylenol) 650 mg PRN Q6HRS PRN PO PAIN / TEMP; Start 08/20/18 at 03:15 Multi-Ingredient Ointment (Analgesic [place]) 1 dayton PRN QID PRN TP MUSCLE PAIN; Start 08/20/18 at 03:15 Al Hydroxide/Mg Hydroxide (Mylanta Plus Xs) 15 ml PRN AFTMEALHC PRN PO DYSPEPSIA; Start 08/20/18 at 03:15; Stop 08/20/18 at 17:00; Status DC Magnesium Hydroxide (Milk Of Magnesia) 2,400 mg PRN QHS PRN PO CONSTIPATION; Start 08/20/18 at 03:15; Stop 08/20/18 at 17:00; Status DC Ascorbic Acid (Vitamin C) 500 mg DAILY PO Last administered on 08/23/18at 08:17 ; Start 08/20/18 at 09:00 Bisacodyl (Dulcolax Tab) 5 mg PRN DAILY PRN PO CONSTIPATION Last administered on 08/21/18at 07:24; Start 08/20/18 at 03:45 Clopidogrel Bisulfate (Plavix) 75 mg DAILY PO Last administered on 08/23/18 08 :17; Start 08/20/18 at 09:00 Hydrocortisone (Proctosol-Hc) 1 dayton BID RC Last administered on 08/23/18 08:21 ; Start 08/20/18 at 09:00; Stop 08/23/18 at 19:56; Status DC Linaclotide (Linzess) 145 mcg DAILY PO Last administered on 08/23/18 08:17; Start 08/20/18 at 09:00 Lisinopril (Prinivil) 10 mg DAILY PO Last administered on 08/23/18 08:18; Start 08/20/18 at 09:00 Methenamine Hippurate (Hiprex) 1 gm BID PO Last administered on 08/23/18 19:47 ; Start 08/20/18 at 09:00 Metoprolol Tartrate (Lopressor) 25 mg BID PO Last administered on 08/23/18 19: 45; Start 08/20/18 at 09:00 Ondansetron HCl (Zofran Odt) 4 mg PRN Q8HRS PRN PO NAUSEA/VOMITING; Start at 04:15 Senna/Docusate Sodium (Senna Plus) 1 tab BID PO Last administered on 08/23/18 19:46; Start 08/20/18 at 09:00 Atorvastatin Calcium (Lipitor) 10 mg QHS PO Last administered on 08/23/18 19: 44; Start 08/20/18 at 21:00 Gabapentin (Neurontin) 600 mg BID PO Last administered on 08/23/18 19:45; Start 08/20/18 at 09:00 Hydrocortisone (Cortaid) 1 dayton PRN BID PRN TP RASH RIGHT ARM Last administered on 08/23/18 19:50; Start 08/20/18 at 04:30 Hydroxyzine HCl (Atarax) 10 mg QHS PO Last administered on 08/23/18 19:46; Start 08/20/18 at 21:00 Latanoprost (Xalatan) 1 drop QHS OU Last administered on 08/23/18 19:44; Start 08/20/18 at 21:00 Levothyroxine Sodium (Synthroid) 25 mcg DAILY06 PO Last administered on 05:15; Start 08/20/18 at 06:00 Magnesium Chloride (Mag Delay) 64 mg BID PO Last administered on 08/23/18 19: 45; Start 08/20/18 at 09:00 Melatonin 3 mg QHS PO Last administered on 08/23/18 19:44; Start 08/20/18 at 21:00 Multivitamins/ Calcium (Thera-M Plus) 1 tab DAILY PO Last administered on 08:16; Start 08/20/18 at 09:00 Oxycodone HCl (Roxicodone) 20 mg PRN Q4HRS PRN PO PAIN Last administered on 20:53; Start 08/20/18 at 06:00 Polyethylene Glycol (miraLAX) 17 gm PRN DAILY PRN PO CONSTIPATION; Start 08/20 at 09:00; Stop 08/21/18 at 09:00; Status DC Pramipexole Dihydrochloride (miraPEX) 0.125 mg QHS PO Last administered on 08/23 19:47; Start 08/20/18 at 21:00 Ropinirole HCl (Requip) 2 mg BID PO Last administered on 08/23/18 19:46; Start 08/20/18 at 09:00 Trazodone HCl (Desyrel) 50 mg QHS PO Last administered on 08/23/18 19:46; Start 08/20/18 at 21:00 Venlafaxine HCl (Effexor) 50 mg TID PO Last administered on 08/23/18 19:45; Start 08/20/18 at 09:00 Olanzapine (ZyPREXA ZYDIS) 2.5 mg PRN Q2HR PRN PO PSYCHOSIS Last administered on 08/20/18 14:08; Start 08/20/18 at 04:00 Lactobacillus Rhamnosus (Culturelle) 1 cap BID PO Last administered on 19:45; Start 08/20/18 at 21:00 Al Hydroxide/Mg Hydroxide (Mylanta Plus Xs) 15 ml DAILY PO Last administered on 08/23/18at 08:15; Start 08/21/18 at 09:00 Magnesium Hydroxide (Milk Of Magnesia) 2,400 mg DAILY PO Last administered on 08/23/18at 08:17; Start 08/21/18 at 09:00 Polyethylene Glycol (miraLAX) 17 gm DAILY PO Last administered on 08/23/18at 08: 15; Start 08/21/18 at 09:00 Magnesium Hydroxide (Milk Of Magnesia) 2,400 mg STK-MED ONCE .ROUTE Last administered on 08/21/18at 07:29; Start 08/21/18 at 07:21; Stop 08/21/18 at 07 :22; Status DC Buspirone HCl (Buspar) 5 mg BID@0900,1700 PO Last administered on 08/23/18at 16: 45; Start 08/21/18 at 17:00; Stop 08/24/18 at 23:00 Buspirone HCl (Buspar) 5 mg TID PO Last administered on 08/23/18at 19:49; Start 08/23/18 at 21:00 Hydrocortisone (Proctosol-Hc) 1 dayton BID RC ; Start 08/23/18 at 19:56 Active Scripts Active Reported Anusol-Hc (Hydrocortisone) 30 Gm Cream..g. 1 [place] TP BID Hydrocortisone 59 Ml Lotion 1 [place] TP PRN BID PRN Mirapex (Pramipexole Di-Hcl) 0.25 Mg Tablet 0.125 Mg PO QHS Hydroxyzine Hcl 10 Mg Tablet 10 Mg PO QHS Plavix (Clopidogrel Bisulfate) 75 Mg Tablet 75 Mg PO DAILY Requip (Ropinirole Hcl) 1 Mg Tablet 2 Mg PO BID Linzess (Linaclotide) 145 Mcg Capsule 145 Mcg PO DAILY Vitamin C (Ascorbic Acid) 500 Mg Tablet 500 Mg PO DAILY Effexor Xr (Venlafaxine Hcl) 150 Mg Cap.er.24h 150 Mg PO DAILY Trazodone Hcl 50 Mg Tablet 50 Mg PO QHS Senna-S Tablet (Sennosides/Docusate Sodium) 1 Each Tablet 1 Tab PO BID Zofran Odt (Ondansetron) 4 Mg Tab.rapdis 4 Mg PO PRN Q8HRS PRN Multivitamins (Multivitamin) 1 Each Tablet 1 Tab PO DAILY Miralax (Polyethylene Glycol 3350) 17 Gm Powd.pack 17 Gm PO PRN DAILY PRN Metoprolol Tartrate 25 Mg Tablet 25 Mg PO BID Methenamine Hippurate 1 Gm Tablet 1 Gm PO BID Melatonin 3 Mg Tablet 3 Mg PO QHS Magnesium Chloride 64 Mg Tablet.dr 64 Mg PO BID Lisinopril 10 Mg Tablet 10 Mg PO DAILY Levothyroxine Sodium 25 Mcg Tablet 25 Mcg PO DAILYAC Latanoprost 2.5 Ml Drops 1 Drop EACHEYE QHS Gabapentin 600 Mg Tablet 600 Mg PO TID Bisacodyl 5 Mg Tablet.dr 5 Mg PO PRN DAILY PRN Atorvastatin Calcium 10 Mg Tablet 10 Mg PO DAILY Oxycodone Hcl 10 Mg Tablet 20 Mg PO PRN Q4HRS PRN I have reviewed the current psychotropics carefully including drug interactions. Risk benefit ratio favors no change other than as noted in my dictated progress note. Diagnosis: Problems: (1) Suicidal ideations (2) Anxiety disorder (3) Bipolar affective disorder, mixed (4) Impulse control disorder (5) Major depressive disorder, recurrent episode AIME ROYAL MD Aug 23, 2018 23:05
[2018-08-24] MEDS: HYDROCORTISONE 2.5% RECTAL CREAM 30GM TUBE. RC SCH ×3 (00:11→21:00)
[2018-08-24 04:25] LABS: BILIRUBIN,URINE NEG (NEG); CLARITY,URINE CLOUDY; COLOR,URINE YELLOW; GLUCOSE,URINE NEG (NEG); UROBILINOGEN,URINE 0.2 mg/dL (0.2 mg/dL)
[2018-08-24 04:26] LABS: BACTERIA,URINE MOD /HPF (0-FEW); NITRITE,URINE NEG (NEG); SQUAMOUS EPITHELIAL CELL,UR FEW /LPF; WBC,URINE >40 /HPF (0-4); YEAST,URINE PRESENT /HPF
[2018-08-24] MEDS: LEVOTHYROXINE 25 MCG TABLET. PO SCH (04:51)
[2018-08-24] MEDS: oxyCODONE IR 5 MG TABLET PO PRN ×4 (05:16→21:10)
[2018-08-24 06:02] VITALS: BP 153/76
[2018-08-24 07:00] LABS: BASO # 0.1 x10^3/uL (0.0-0.2); BASO % 1 % (0-3); EOS # 0.9 x10^3/uL (0.0-0.7); EOS % 14 % (0-3); HEMATOCRIT 38.3 % (36.0-47.0); HEMOGLOBIN 12.6 g/dL (12.0-15.5); LYMPH # 1.8 x10^3/uL (1.0-4.8); LYMPH % 28 % (24-48); MEAN CORPUSCULAR HEMOGLOBIN 28 pg (25-35); MEAN CORPUSCULAR HGB CONC 33 g/dL (31-37); MEAN CORPUSCULAR VOLUME 86 fL (79-100); MONO # 0.7 x10^3/uL (0.0-1.1); MONO % 10 % (0-9); NEUT % 47 % (31-73); PLATELET COUNT 249 x10^3/uL (140-400); RED BLOOD COUNT 4.45 x10^6/uL (3.50-5.40); RED CELL DISTRIBUTION WIDTH 15.1 % (11.5-14.5); WHITE BLOOD COUNT 6.3 x10^3/uL (4.0-11.0)
[2018-08-24 07:10] LABS: ALBUMIN 3.3 g/dL (3.4-5.0); ALBUMIN/GLOBULIN RATIO 0.9 (1.0-1.7); CALCIUM 9.1 mg/dL (8.5-10.1); CREATININE 0.8 mg/dL (0.6-1.0); GFR 69.7; POTASSIUM 4.1 mmol/L (3.5-5.1); TOTAL BILIRUBIN 0.3 mg/dL (0.2-1.0); TOTAL PROTEIN 7.1 g/dL (6.4-8.2)
--- NOTE | 2018-08-24 07:55 | RAD ---
EXAM: CHEST 1 VIEW History: Cough, shortness of breath COMPARISON: 08/20/2018 TECHNIQUE: Single portable radiograph of the chest FINDINGS: Low lung volumes and technique accentuates heart size and pulmonary vascularity. Moderate elevated right hemidiaphragm. Minimal bibasilar lung atelectasis. 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 IMPRESSION: 1. Minimal bibasilar lung atelectasis. 2. Moderate elevated right hemidiaphragm similar to prior exam. Electronically signed by: Eugenio Denny MD (08/24/2018 7:52 AM) [facility]
[2018-08-24] MEDS: IPRATRPIUM/ALBUTEROL 0.5/2.5MG 3 ML NEBU. NEB SCH ×4 (08:00→20:30)
[2018-08-24] MEDS: busPIRone 5 MG TABLET. PO SCH ×3 (09:00→21:07)
[2018-08-24] MEDS: LACTOBACILLUS RHAMNOSUS GG 1 CAPSULE. PO SCH ×2 (09:00→21:07)
[2018-08-24] MEDS: VENLAFAXINE 50 MG TABLET. PO SCH ×3 (09:00→21:09)
[2018-08-24] MEDS: CEPHALEXIN 250 MG CAPSULE PO SCH ×3 (09:01→21:09)
[2018-08-24] MEDS: METHENAMINE HIPPURATE 1 GM TABLET PO SCH ×2 (09:01→21:09)
[2018-08-24] MEDS: LINACLOTIDE 145 MCG CAPSULE. PO SCH (09:02)
[2018-08-24] MEDS: METOPROLOL TART IMMED RELEASE 25 MG TABLET PO SCH ×2 (09:02→21:09)
[2018-08-24] MEDS: MAGNESIUM HYDROXIDE 2,400 MG/30 ML ORAL.SUSP. PO SCH (09:03)
[2018-08-24] MEDS: POLYETHYLENE GLYCOL 3350 17 GM PACKET. PO SCH (09:03)
[2018-08-24] MEDS: MAG HYDROX/AL HYDROX/SIMETH 30 ML ORAL.SUSP PO SCH (09:03)
[2018-08-24] MEDS: CLOPIDOGREL BISULFATE 75 MG TABLET PO SCH (09:03)
[2018-08-24] MEDS: MAGNESIUM CHLORIDE ER 64 MG TABLET.ER PO SCH ×2 (09:03→21:09)
[2018-08-24] MEDS: GABAPENTIN 300 MG CAPSULE. PO SCH ×2 (09:03→21:09)
[2018-08-24] MEDS: SENNOSIDES/DOCUSATE 8.6/50MG TABLET. PO SCH ×2 (09:04→21:09)
[2018-08-24] MEDS: ASCORBIC ACID 500 MG TABLET PO SCH (09:04)
[2018-08-24] MEDS: MULTIVITAMIN with MINERAL TABLET. PO SCH (09:04)
[2018-08-24] MEDS: LISINOPRIL 10 MG TABLET PO SCH (09:04)
[2018-08-24] MEDS: rOPINIRole 2 MG TABLET. PO SCH ×2 (09:04→21:09)
[2018-08-24 15:50] VITALS: BP 145/82
[2018-08-24] MEDS: LATANOPROST 0.005% OPHTH SOLUTION 2.5ML BOTTLE. OU SCH (21:00)
[2018-08-24] MEDS: PRAMIPEXOLE 0.25 MG TABLET. PO SCH (21:07)
[2018-08-24] MEDS: ATORVASTATIN CALCIUM 10 MG TABLET. PO SCH (21:08)
[2018-08-24] MEDS: MELATONIN 3 MG TABLET PO SCH (21:09)
[2018-08-24] MEDS: hydrOXYzine HCL 10 MG TABLET PO SCH (21:09)
[2018-08-24] MEDS: traZODone 50 MG TABLET. PO SCH (21:09)
--- NOTE | 2018-08-24 23:08 | PDOC ---
Exam Note: Kt Note: Please also refer to the separate dictated note~for this date of service dictated separately.~Patient seen individually. Discussed the patient with Nursing staff reviewed the chart.~Reviewed interim history and current functioning. Reviewed vital signs,~Labs/ Radiology~and current medications noted below. Continue current treatment with the changes noted in the dictated addendum note Assessment: Vital Signs: Vital Signs Date Time Temp Pulse Resp B/P (MAP) Pulse Ox O2 Delivery O2 Flow Rate FiO2 08/24/18 21:10 16 94 08/24/18 21:09 82 145/82 08/24/18 20:30 Room Air 08/24/18 15:50 98.3 I&O Intake and Output 08/24/18 07:00 Intake Total 840 ml Balance 840 ml Intake Oral 840 ml # Voids 4 # Bowel Movements 2 Labs: Laboratory Tests Test 08/24/18 03:55 08/24/18 06:46 Urine Collection Type U cath Urine Color Yellow Urine Clarity Cloudy Urine pH 6.5 Urine Specific [place] 1.025 Urine Protein Neg (NEG-TRACE) Urine Glucose (UA) Neg mg/dL (NEG) Urine Ketones (Stick) Neg mg/dL (NEG) Urine Blood Trace (NEG) Urine Nitrite Neg (NEG) Urine Bilirubin Neg (NEG) Urine Urobilinogen Dipstick 0.2 mg/dL (0.2 mg/dL) Urine Leukocyte Esterase Mod (NEG) Urine RBC 1-2 /HPF (0-2) Urine WBC >40 /HPF (0-4) Urine Squamous Epithelial Cells Few /LPF Urine Bacteria Mod /HPF (0-FEW) Urine Mucus Slight /LPF Urine Yeast Present /HPF White Blood Count 6.3 x10^3/uL (4.0-11.0) Red Blood Count 4.45 x10^6/uL (3.50-5.40) Hemoglobin 12.6 g/dL (12.0-15.5) Hematocrit 38.3 % (36.0-47.0) Mean Corpuscular Volume 86 fL (79-100) Mean Corpuscular Hemoglobin 28 pg (25-35) Mean Corpuscular Hemoglobin Concent 33 g/dL (31-37) Red Cell Distribution Width 15.1 % (11.5-14.5) H Platelet Count 249 x10^3/uL (140-400) Neutrophils (%) (Auto) 47 % (31-73) Lymphocytes (%) (Auto) 28 % (24-48) Monocytes (%) (Auto) 10 % (0-9) H Eosinophils (%) (Auto) 14 % (0-3) H Basophils (%) (Auto) 1 % (0-3) Neutrophils # (Auto) 3.0 x10^3uL (1.8-7.7) Lymphocytes # (Auto) 1.8 x10^3/uL (1.0-4.8) Monocytes # (Auto) 0.7 x10^3/uL (0.0-1.1) Eosinophils # (Auto) 0.9 x10^3/uL (0.0-0.7) H Basophils # (Auto) 0.1 x10^3/uL (0.0-0.2) Sodium Level 137 mmol/L (136-145) Potassium Level 4.1 mmol/L (3.5-5.1) Chloride Level 99 mmol/L (98-107) Carbon Dioxide Level 33 mmol/L (21-32) H Anion Gap 5 (6-14) L Blood Urea Nitrogen 20 mg/dL (7-20) Creatinine 0.8 mg/dL (0.6-1.0) Estimated GFR (Cockcroft-Gault) 69.7 BUN/Creatinine Ratio 25 (6-20) H Glucose Level 107 mg/dL (70-99) H Lactic Acid Level 0.8 mmol/L (0.4-2.0) Calcium Level 9.1 mg/dL (8.5-10.1) Total Bilirubin 0.3 mg/dL (0.2-1.0) Aspartate Amino Transferase (AST) 26 U/L (15-37) Alanine Aminotransferase (ALT) 31 U/L (14-59) Alkaline Phosphatase 105 U/L (46-116) Total Protein 7.1 g/dL (6.4-8.2) Albumin 3.3 g/dL (3.4-5.0) L Albumin/Globulin Ratio 0.9 (1.0-1.7) L Current Medications: Meds: Current Medications Magnesium Hydroxide (Milk Of Magnesia) 2,400 mg 1X ONCE PO Last administered on 08/20/18at 02:19; Start 08/20/18 at 02:00; Stop 08/20/18 at 02:01; Status DC Cephalexin HCl (Keflex) 500 mg 1X ONCE PO Last administered on 08/20/18at 02: 19; Start 08/20/18 at 02:00; Stop 08/20/18 at 02:01; Status DC Cephalexin HCl (Keflex) 500 mg TID PO Last administered on 08/24/18at 21:09; Start 08/20/18 at 09:00 Acetaminophen (Tylenol) 650 mg PRN Q6HRS PRN PO PAIN / TEMP; Start 08/20/18 at 03:15 Multi-Ingredient Ointment (Analgesic [place]) 1 dayton PRN QID PRN TP MUSCLE PAIN; Start 08/20/18 at 03:15 Al Hydroxide/Mg Hydroxide (Mylanta Plus Xs) 15 ml PRN AFTMEALHC PRN PO DYSPEPSIA; Start 08/20/18 at 03:15; Stop 08/20/18 at 17:00; Status DC Magnesium Hydroxide (Milk Of Magnesia) 2,400 mg PRN QHS PRN PO CONSTIPATION; Start 08/20/18 at 03:15; Stop 08/20/18 at 17:00; Status DC Ascorbic Acid (Vitamin C) 500 mg DAILY PO Last administered on 08/24/18at 09:04 ; Start 08/20/18 at 09:00 Bisacodyl (Dulcolax Tab) 5 mg PRN DAILY PRN PO CONSTIPATION Last administered on 08/21/18at 07:24; Start 08/20/18 at 03:45 Clopidogrel Bisulfate (Plavix) 75 mg DAILY PO Last administered on 08/24/18at 09 :03; Start 08/20/18 at 09:00 Hydrocortisone (Proctosol-Hc) 1 dayton BID RC Last administered on 08/23/18at 08:21 ; Start 08/20/18 at 09:00; Stop 08/23/18 at 19:56; Status DC Linaclotide (Linzess) 145 mcg DAILY PO Last administered on 08/24/18at 09:02; Start 08/20/18 at 09:00 Lisinopril (Prinivil) 10 mg DAILY PO Last administered on 08/24/18at 09:04; Start 08/20/18 at 09:00 Methenamine Hippurate (Hiprex) 1 gm BID PO Last administered on 08/24/18 21:09 ; Start 08/20/18 at 09:00 Metoprolol Tartrate (Lopressor) 25 mg BID PO Last administered on 08/24/18 21: 09; Start 08/20/18 at 09:00 Ondansetron HCl (Zofran Odt) 4 mg PRN Q8HRS PRN PO NAUSEA/VOMITING; Start at 04:15 Senna/Docusate Sodium (Senna Plus) 1 tab BID PO Last administered on 08/24/18 21:09; Start 08/20/18 at 09:00 Atorvastatin Calcium (Lipitor) 10 mg QHS PO Last administered on 08/24/18 21: 08; Start 08/20/18 at 21:00 Gabapentin (Neurontin) 600 mg BID PO Last administered on 08/24/18 21:09; Start 08/20/18 at 09:00 Hydrocortisone (Cortaid) 1 dayton PRN BID PRN TP RASH RIGHT ARM Last administered on 08/23/18 19:50; Start 08/20/18 at 04:30 Hydroxyzine HCl (Atarax) 10 mg QHS PO Last administered on 08/24/18 21:09; Start 08/20/18 at 21:00 Latanoprost (Xalatan) 1 drop QHS OU Last administered on 08/24/18 21:00; Start 08/20/18 at 21:00 Levothyroxine Sodium (Synthroid) 25 mcg DAILY06 PO Last administered on 04:51; Start 08/20/18 at 06:00 Magnesium Chloride (Mag Delay) 64 mg BID PO Last administered on 08/24/18 21: 09; Start 08/20/18 at 09:00 Melatonin 3 mg QHS PO Last administered on 08/24/18 21:09; Start 08/20/18 at 21:00 Multivitamins/ Calcium (Thera-M Plus) 1 tab DAILY PO Last administered on 09:04; Start 08/20/18 at 09:00 Oxycodone HCl (Roxicodone) 20 mg PRN Q4HRS PRN PO PAIN Last administered on 21:10; Start 08/20/18 at 06:00 Polyethylene Glycol (miraLAX) 17 gm PRN DAILY PRN PO CONSTIPATION; Start 08/20 at 09:00; Stop 08/21/18 at 09:00; Status DC Pramipexole Dihydrochloride (miraPEX) 0.125 mg QHS PO Last administered on 08/24 21:07; Start 08/20/18 at 21:00 Ropinirole HCl (Requip) 2 mg BID PO Last administered on 08/24/18 21:09; Start 08/20/18 at 09:00 Trazodone HCl (Desyrel) 50 mg QHS PO Last administered on 08/24/18 21:09; Start 08/20/18 at 21:00 Venlafaxine HCl (Effexor) 50 mg TID PO Last administered on 08/24/18 21:09; Start 08/20/18 at 09:00 Olanzapine (ZyPREXA ZYDIS) 2.5 mg PRN Q2HR PRN PO PSYCHOSIS Last administered on 08/20/18at 14:08; Start 08/20/18 at 04:00 Lactobacillus Rhamnosus (Culturelle) 1 cap BID PO Last administered on 21:07; Start 08/20/18 at 21:00 Al Hydroxide/Mg Hydroxide (Mylanta Plus Xs) 15 ml DAILY PO Last administered on 08/24/18 09:03; Start 08/21/18 at 09:00 Magnesium Hydroxide (Milk Of Magnesia) 2,400 mg DAILY PO Last administered on 08/24/18 09:03; Start 08/21/18 at 09:00 Polyethylene Glycol (miraLAX) 17 gm DAILY PO Last administered on 08/24/18 09: 03; Start 08/21/18 at 09:00 Magnesium Hydroxide (Milk Of Magnesia) 2,400 mg STK-MED ONCE .ROUTE Last administered on 08/21/18 07:29; Start 08/21/18 at 07:21; Stop 08/21/18 at 07 :22; Status DC Buspirone HCl (Buspar) 5 mg BID@0900,1700 PO Last administered on 08/23/18at 16: 45; Start 08/21/18 at 17:00; Stop 08/24/18 at 09:00; Status DC Buspirone HCl (Buspar) 5 mg TID PO Last administered on 08/24/18at 21:07; Start 08/23/18 at 21:00 Hydrocortisone (Proctosol-Hc) 1 dayton BID RC Last administered on 08/24/18at 21:00 ; Start 08/23/18 at 19:56 Albuterol/ Ipratropium (Duoneb) 3 ml RTQID NEB Last administered on 08/24/18at 20:30; Start 08/24/18 at 08:00 Active Scripts Active Reported Anusol-Hc (Hydrocortisone) 30 Gm Cream..g. 1 [place] TP BID Hydrocortisone 59 Ml Lotion 1 [place] TP PRN BID PRN Mirapex (Pramipexole Di-Hcl) 0.25 Mg Tablet 0.125 Mg PO QHS Hydroxyzine Hcl 10 Mg Tablet 10 Mg PO QHS Plavix (Clopidogrel Bisulfate) 75 Mg Tablet 75 Mg PO DAILY Requip (Ropinirole Hcl) 1 Mg Tablet 2 Mg PO BID Linzess (Linaclotide) 145 Mcg Capsule 145 Mcg PO DAILY Vitamin C (Ascorbic Acid) 500 Mg Tablet 500 Mg PO DAILY Effexor Xr (Venlafaxine Hcl) 150 Mg Cap.er.24h 150 Mg PO DAILY Trazodone Hcl 50 Mg Tablet 50 Mg PO QHS Senna-S Tablet (Sennosides/Docusate Sodium) 1 Each Tablet 1 Tab PO BID Zofran Odt (Ondansetron) 4 Mg Tab.rapdis 4 Mg PO PRN Q8HRS PRN Multivitamins (Multivitamin) 1 Each Tablet 1 Tab PO DAILY Miralax (Polyethylene Glycol 3350) 17 Gm Powd.pack 17 Gm PO PRN DAILY PRN Metoprolol Tartrate 25 Mg Tablet 25 Mg PO BID Methenamine Hippurate 1 Gm Tablet 1 Gm PO BID Melatonin 3 Mg Tablet 3 Mg PO QHS Magnesium Chloride 64 Mg Tablet.dr 64 Mg PO BID Lisinopril 10 Mg Tablet 10 Mg PO DAILY Levothyroxine Sodium 25 Mcg Tablet 25 Mcg PO DAILYAC Latanoprost 2.5 Ml Drops 1 Drop EACHEYE QHS Gabapentin 600 Mg Tablet 600 Mg PO TID Bisacodyl 5 Mg Tablet.dr 5 Mg PO PRN DAILY PRN Atorvastatin Calcium 10 Mg Tablet 10 Mg PO DAILY Oxycodone Hcl 10 Mg Tablet 20 Mg PO PRN Q4HRS PRN I have reviewed the current psychotropics carefully including drug interactions. Risk benefit ratio favors no change other than as noted in my dictated progress note. Diagnosis: Problems: (1) Suicidal ideations (2) Anxiety disorder (3) Bipolar affective disorder, mixed (4) Impulse control disorder (5) Major depressive disorder, recurrent episode AIME ROYAL MD Aug 24, 2018 23:08
[2018-08-25] MEDS: oxyCODONE IR 5 MG TABLET PO PRN ×4 (02:42→22:51)
[2018-08-25] MEDS: IPRATRPIUM/ALBUTEROL 0.5/2.5MG 3 ML NEBU. NEB SCH ×4 (05:20→20:47)
[2018-08-25 06:05] VITALS: BP 125/70
[2018-08-25] MEDS: LEVOTHYROXINE 25 MCG TABLET. PO SCH (06:22)
[2018-08-25] MEDS: rOPINIRole 2 MG TABLET. PO SCH ×2 (09:00→19:36)
[2018-08-25] MEDS: LINACLOTIDE 145 MCG CAPSULE. PO SCH (09:00)
[2018-08-25] MEDS: SENNOSIDES/DOCUSATE 8.6/50MG TABLET. PO SCH ×2 (09:00→19:37)
[2018-08-25] MEDS: MAGNESIUM HYDROXIDE 2,400 MG/30 ML ORAL.SUSP. PO SCH (09:00)
[2018-08-25] MEDS: POLYETHYLENE GLYCOL 3350 17 GM PACKET. PO SCH (09:00)
[2018-08-25] MEDS: LISINOPRIL 10 MG TABLET PO SCH (09:00)
[2018-08-25] MEDS: CEPHALEXIN 250 MG CAPSULE PO SCH ×3 (09:00→19:37)
[2018-08-25] MEDS: CLOPIDOGREL BISULFATE 75 MG TABLET PO SCH (09:00)
[2018-08-25] MEDS: busPIRone 5 MG TABLET. PO SCH ×3 (09:00→19:37)
[2018-08-25] MEDS: VENLAFAXINE 50 MG TABLET. PO SCH ×3 (09:00→19:37)
[2018-08-25] MEDS: HYDROCORTISONE 2.5% RECTAL CREAM 30GM TUBE. RC SCH ×2 (09:00→20:04)
[2018-08-25] MEDS: GABAPENTIN 300 MG CAPSULE. PO SCH ×2 (09:00→19:36)
[2018-08-25] MEDS: MAGNESIUM CHLORIDE ER 64 MG TABLET.ER PO SCH ×2 (09:00→19:36)
[2018-08-25] MEDS: METHENAMINE HIPPURATE 1 GM TABLET PO SCH ×2 (09:00→20:04)
[2018-08-25] MEDS: METOPROLOL TART IMMED RELEASE 25 MG TABLET PO SCH ×2 (09:00→19:37)
[2018-08-25] MEDS: ASCORBIC ACID 500 MG TABLET PO SCH (09:00)
[2018-08-25] MEDS: MULTIVITAMIN with MINERAL TABLET. PO SCH (09:00)
[2018-08-25] MEDS: LACTOBACILLUS RHAMNOSUS GG 1 CAPSULE. PO SCH ×2 (09:00→19:37)
[2018-08-25] MEDS: MAG HYDROX/AL HYDROX/SIMETH 30 ML ORAL.SUSP PO SCH (09:38)
[2018-08-25 15:45] VITALS: BP 147/83
--- NOTE | 2018-08-25 16:36 | PN ---
DATE: 08/23/2018 PSYCHIATRIC PROGRESS NOTE This late entry 08/23/2018 covers elements, not covered in my initial note. SUBJECTIVE: I met with the patient in the evening at length in her room. The patient slept 4 hours previous night. The patient has been demanding at times, isolates in her room. Appetite is fair. REVIEW OF SYSTEMS: Ambulation impaired, in wheelchair. No CV, , pulmonary, eye, ENT system symptoms on review. MENTAL STATUS EXAM: Reasonably oriented. Speech coherent, abstraction fair, computation impaired, language function intact, attention span short. Mood and affect is improved. LABORATORY DATA: Reviewed. IMPRESSION: Major depressive disorder in partial remission; anxiety disorder, unspecified. PLAN: BuSpar is at 5 mg twice a day, we will increase to 5 mg 3 times a day. Trazodone 50 mg at bedtime, may repeat x 1 for insomnia. Continue melatonin, Effexor, Atarax for now. AIME ROYAL MD DR: ALLAN/luiz JOB#: [id number] / [id number]
[2018-08-25] MEDS: traZODone 50 MG TABLET. PO SCH (19:36)
[2018-08-25] MEDS: ATORVASTATIN CALCIUM 10 MG TABLET. PO SCH (19:36)
[2018-08-25] MEDS: hydrOXYzine HCL 10 MG TABLET PO SCH (19:36)
[2018-08-25] MEDS: MELATONIN 3 MG TABLET PO SCH (19:37)
[2018-08-25] MEDS: PRAMIPEXOLE 0.25 MG TABLET. PO SCH (19:38)
[2018-08-25] MEDS: LATANOPROST 0.005% OPHTH SOLUTION 2.5ML BOTTLE. OU SCH (20:01)
--- NOTE | 2018-08-25 23:00 | PN ---
DATE: 08/24/2018 PSYCHIATRIC PROGRESS NOTE This late entry 08/24/2018 covers elements, not covered in my initial note. SUBJECTIVE: I met with the patient in her room at some length. Staff had celebrated her birthday that was a day before and she is appreciative of this. She slept 6-1/4 hours previous evening, remains somewhat withdrawn. No suicidal statements. REVIEW OF SYSTEMS: Ambulation in wheelchair or walker. No CV, , pulmonary, eye, ENT system symptoms on review. I met with her in her room at some length. She is again reading a book, seems to be following along, seems interested in things she likes to do. MENTAL STATUS EXAM: Reasonably oriented. Speech has some latency, coherent. Abstraction fair, computation impaired, language function intact, attention span short. Mood and affect somewhat withdrawn at times. LABORATORY DATA: Reviewed. IMPRESSION: Bipolar 1 disorder, depressed versus major depressive disorder. No suicidal ideation at this time. Rest unchanged. PLAN: No change from initial note. MAN Kamila ROYAL MD DR: ALLAN/luiz JOB#: [id number] / [id number]
--- NOTE | 2018-08-25 23:02 | PDOC ---
Exam Note: Kt Note: Please also refer to the separate dictated note~for this date of service dictated separately.~Patient seen individually. Discussed the patient with Nursing staff reviewed the chart.~Reviewed interim history and current functioning. Reviewed vital signs,~Labs/ Radiology~and current medications noted below. Continue current treatment with the changes noted in the dictated addendum note Assessment: Vital Signs: Vital Signs Date Time Temp Pulse Resp B/P (MAP) Pulse Ox O2 Delivery O2 Flow Rate FiO2 08/25/18 22:51 95 08/25/18 20:50 Room Air 08/25/18 19:37 91 147/83 08/25/18 17:06 20 08/25/18 15:45 97.3 I&O Intake and Output 08/25/18 07:00 Intake Total 1080 ml Output Total 200 ml Balance 880 ml Intake Oral 1080 ml Output Urine Total 200 ml Current Medications: Meds: Current Medications Magnesium Hydroxide (Milk Of Magnesia) 2,400 mg 1X ONCE PO Last administered on 08/20/18at 02:19; Start 08/20/18 at 02:00; Stop 08/20/18 at 02:01; Status DC Cephalexin HCl (Keflex) 500 mg 1X ONCE PO Last administered on 08/20/18at 02: 19; Start 08/20/18 at 02:00; Stop 08/20/18 at 02:01; Status DC Cephalexin HCl (Keflex) 500 mg TID PO Last administered on 08/25/18at 19:37; Start 08/20/18 at 09:00 Acetaminophen (Tylenol) 650 mg PRN Q6HRS PRN PO PAIN / TEMP; Start 08/20/18 at 03:15 Multi-Ingredient Ointment (Analgesic [place]) 1 dayton PRN QID PRN TP MUSCLE PAIN; Start 08/20/18 at 03:15 Al Hydroxide/Mg Hydroxide (Mylanta Plus Xs) 15 ml PRN AFTMEALHC PRN PO DYSPEPSIA; Start 08/20/18 at 03:15; Stop 08/20/18 at 17:00; Status DC Magnesium Hydroxide (Milk Of Magnesia) 2,400 mg PRN QHS PRN PO CONSTIPATION; Start 08/20/18 at 03:15; Stop 08/20/18 at 17:00; Status DC Ascorbic Acid (Vitamin C) 500 mg DAILY PO Last administered on 08/24/18 09:04 ; Start 08/20/18 at 09:00 Bisacodyl (Dulcolax Tab) 5 mg PRN DAILY PRN PO CONSTIPATION Last administered on 08/21/18 07:24; Start 08/20/18 at 03:45 Clopidogrel Bisulfate (Plavix) 75 mg DAILY PO Last administered on 08/24/18 09 :03; Start 08/20/18 at 09:00 Hydrocortisone (Proctosol-Hc) 1 dayton BID RC Last administered on 08/23/18 08:21 ; Start 08/20/18 at 09:00; Stop 08/23/18 at 19:56; Status DC Linaclotide (Linzess) 145 mcg DAILY PO Last administered on 08/24/18 09:02; Start 08/20/18 at 09:00 Lisinopril (Prinivil) 10 mg DAILY PO Last administered on 08/24/18 09:04; Start 08/20/18 at 09:00 Methenamine Hippurate (Hiprex) 1 gm BID PO Last administered on 08/25/18 20:04 ; Start 08/20/18 at 09:00 Metoprolol Tartrate (Lopressor) 25 mg BID PO Last administered on 08/25/18 19: 37; Start 08/20/18 at 09:00 Ondansetron HCl (Zofran Odt) 4 mg PRN Q8HRS PRN PO NAUSEA/VOMITING; Start at 04:15 Senna/Docusate Sodium (Senna Plus) 1 tab BID PO Last administered on 08/25/18 19:37; Start 08/20/18 at 09:00 Atorvastatin Calcium (Lipitor) 10 mg QHS PO Last administered on 08/25/18 19: 36; Start 08/20/18 at 21:00 Gabapentin (Neurontin) 600 mg BID PO Last administered on 08/25/18 19:36; Start 08/20/18 at 09:00 Hydrocortisone (Cortaid) 1 dayton PRN BID PRN TP RASH RIGHT ARM Last administered on 08/23/18 19:50; Start 08/20/18 at 04:30 Hydroxyzine HCl (Atarax) 10 mg QHS PO Last administered on 08/25/18 19:36; Start 08/20/18 at 21:00 Latanoprost (Xalatan) 1 drop QHS OU Last administered on 08/25/18 20:01; Start 08/20/18 at 21:00 Levothyroxine Sodium (Synthroid) 25 mcg DAILY06 PO Last administered on 06:22; Start 08/20/18 at 06:00 Magnesium Chloride (Mag Delay) 64 mg BID PO Last administered on 08/25/18 19: 36; Start 08/20/18 at 09:00 Melatonin 3 mg QHS PO Last administered on 08/25/18 19:37; Start 08/20/18 at 21:00 Multivitamins/ Calcium (Thera-M Plus) 1 tab DAILY PO Last administered on 09:04; Start 08/20/18 at 09:00 Oxycodone HCl (Roxicodone) 20 mg PRN Q4HRS PRN PO PAIN Last administered on 22:51; Start 08/20/18 at 06:00 Polyethylene Glycol (miraLAX) 17 gm PRN DAILY PRN PO CONSTIPATION; Start 08/20 at 09:00; Stop 08/21/18 at 09:00; Status DC Pramipexole Dihydrochloride (miraPEX) 0.125 mg QHS PO Last administered on 08/25 19:38; Start 08/20/18 at 21:00 Ropinirole HCl (Requip) 2 mg BID PO Last administered on 08/25/18 19:36; Start 08/20/18 at 09:00 Trazodone HCl (Desyrel) 50 mg QHS PO Last administered on 08/25/18 19:36; Start 08/20/18 at 21:00 Venlafaxine HCl (Effexor) 50 mg TID PO Last administered on 08/25/18 19:37; Start 08/20/18 at 09:00 Olanzapine (ZyPREXA ZYDIS) 2.5 mg PRN Q2HR PRN PO PSYCHOSIS Last administered on 08/20/18 14:08; Start 08/20/18 at 04:00 Lactobacillus Rhamnosus (Culturelle) 1 cap BID PO Last administered on 19:37; Start 08/20/18 at 21:00 Al Hydroxide/Mg Hydroxide (Mylanta Plus Xs) 15 ml DAILY PO Last administered on 08/25/18at 09:38; Start 08/21/18 at 09:00 Magnesium Hydroxide (Milk Of Magnesia) 2,400 mg DAILY PO Last administered on 08/24/18at 09:03; Start 08/21/18 at 09:00 Polyethylene Glycol (miraLAX) 17 gm DAILY PO Last administered on 08/24/18 09: 03; Start 08/21/18 at 09:00 Magnesium Hydroxide (Milk Of Magnesia) 2,400 mg STK-MED ONCE .ROUTE Last administered on 08/21/18at 07:29; Start 08/21/18 at 07:21; Stop 08/21/18 at 07 :22; Status DC Buspirone HCl (Buspar) 5 mg BID@0900,1700 PO Last administered on 08/23/18at 16: 45; Start 08/21/18 at 17:00; Stop 08/24/18 at 09:00; Status DC Buspirone HCl (Buspar) 5 mg TID PO Last administered on 08/25/18at 19:37; Start 08/23/18 at 21:00 Hydrocortisone (Proctosol-Hc) 1 dayton BID RC Last administered on 08/25/18at 20:04 ; Start 08/23/18 at 19:56 Albuterol/ Ipratropium (Duoneb) 3 ml RTQID NEB Last administered on 08/25/18at 20:47; Start 08/24/18 at 08:00 Active Scripts Active Reported Anusol-Hc (Hydrocortisone) 30 Gm Cream..g. 1 [place] TP BID Hydrocortisone 59 Ml Lotion 1 [place] TP PRN BID PRN Mirapex (Pramipexole Di-Hcl) 0.25 Mg Tablet 0.125 Mg PO QHS Hydroxyzine Hcl 10 Mg Tablet 10 Mg PO QHS Plavix (Clopidogrel Bisulfate) 75 Mg Tablet 75 Mg PO DAILY Requip (Ropinirole Hcl) 1 Mg Tablet 2 Mg PO BID Linzess (Linaclotide) 145 Mcg Capsule 145 Mcg PO DAILY Vitamin C (Ascorbic Acid) 500 Mg Tablet 500 Mg PO DAILY Effexor Xr (Venlafaxine Hcl) 150 Mg Cap.er.24h 150 Mg PO DAILY Trazodone Hcl 50 Mg Tablet 50 Mg PO QHS Senna-S Tablet (Sennosides/Docusate Sodium) 1 Each Tablet 1 Tab PO BID Zofran Odt (Ondansetron) 4 Mg Tab.rapdis 4 Mg PO PRN Q8HRS PRN Multivitamins (Multivitamin) 1 Each Tablet 1 Tab PO DAILY Miralax (Polyethylene Glycol 3350) 17 Gm Powd.pack 17 Gm PO PRN DAILY PRN Metoprolol Tartrate 25 Mg Tablet 25 Mg PO BID Methenamine Hippurate 1 Gm Tablet 1 Gm PO BID Melatonin 3 Mg Tablet 3 Mg PO QHS Magnesium Chloride 64 Mg Tablet.dr 64 Mg PO BID Lisinopril 10 Mg Tablet 10 Mg PO DAILY Levothyroxine Sodium 25 Mcg Tablet 25 Mcg PO DAILYAC Latanoprost 2.5 Ml Drops 1 Drop EACHEYE QHS Gabapentin 600 Mg Tablet 600 Mg PO TID Bisacodyl 5 Mg Tablet.dr 5 Mg PO PRN DAILY PRN Atorvastatin Calcium 10 Mg Tablet 10 Mg PO DAILY Oxycodone Hcl 10 Mg Tablet 20 Mg PO PRN Q4HRS PRN I have reviewed the current psychotropics carefully including drug interactions. Risk benefit ratio favors no change other than as noted in my dictated progress note. Diagnosis: Problems: (1) Suicidal ideations (2) Anxiety disorder (3) Bipolar affective disorder, mixed (4) Impulse control disorder (5) Major depressive disorder, recurrent episode AIME ROYAL MD Aug 25, 2018 23:02
[2018-08-26] MEDS: oxyCODONE IR 5 MG TABLET PO PRN ×4 (01:02→21:07)
[2018-08-26] MEDS: LEVOTHYROXINE 25 MCG TABLET. PO SCH (05:20)
[2018-08-26] MEDS: IPRATRPIUM/ALBUTEROL 0.5/2.5MG 3 ML NEBU. NEB SCH ×4 (05:52→21:07)
[2018-08-26 06:07] VITALS: BP 125/75
[2018-08-26] MEDS: GABAPENTIN 300 MG CAPSULE. PO SCH ×2 (08:15→20:45)
[2018-08-26] MEDS: CEPHALEXIN 250 MG CAPSULE PO SCH ×3 (08:16→20:43)
[2018-08-26] MEDS: rOPINIRole 2 MG TABLET. PO SCH ×2 (08:16→20:43)
[2018-08-26] MEDS: CLOPIDOGREL BISULFATE 75 MG TABLET PO SCH (08:16)
[2018-08-26] MEDS: MAGNESIUM CHLORIDE ER 64 MG TABLET.ER PO SCH ×2 (08:16→20:43)
[2018-08-26] MEDS: busPIRone 5 MG TABLET. PO SCH ×3 (08:16→20:43)
[2018-08-26] MEDS: LACTOBACILLUS RHAMNOSUS GG 1 CAPSULE. PO SCH ×2 (08:16→20:44)
[2018-08-26] MEDS: ASCORBIC ACID 500 MG TABLET PO SCH (08:16)
[2018-08-26] MEDS: MULTIVITAMIN with MINERAL TABLET. PO SCH (08:16)
[2018-08-26] MEDS: SENNOSIDES/DOCUSATE 8.6/50MG TABLET. PO SCH ×2 (08:16→20:43)
[2018-08-26] MEDS: VENLAFAXINE 50 MG TABLET. PO SCH ×3 (08:17→20:44)
[2018-08-26] MEDS: MAGNESIUM HYDROXIDE 2,400 MG/30 ML ORAL.SUSP. PO SCH (09:00)
[2018-08-26] MEDS: HYDROCORTISONE 2.5% RECTAL CREAM 30GM TUBE. RC SCH ×2 (09:00→20:50)
[2018-08-26] MEDS: LINACLOTIDE 145 MCG CAPSULE. PO SCH (09:04)
[2018-08-26] MEDS: METHENAMINE HIPPURATE 1 GM TABLET PO SCH ×2 (09:04→20:50)
[2018-08-26] MEDS: METOPROLOL TART IMMED RELEASE 25 MG TABLET PO SCH ×2 (09:05→20:44)
[2018-08-26] MEDS: LISINOPRIL 10 MG TABLET PO SCH (09:05)
[2018-08-26] MEDS: POLYETHYLENE GLYCOL 3350 17 GM PACKET. PO SCH (09:06)
[2018-08-26] MEDS: MAG HYDROX/AL HYDROX/SIMETH 30 ML ORAL.SUSP PO SCH (09:06)
[2018-08-26 15:05] VITALS: BP 144/84
[2018-08-26] MEDS: PRAMIPEXOLE 0.25 MG TABLET. PO SCH (20:43)
[2018-08-26] MEDS: traZODone 50 MG TABLET. PO SCH (20:44)
[2018-08-26] MEDS: MELATONIN 3 MG TABLET PO SCH (20:44)
[2018-08-26] MEDS: ATORVASTATIN CALCIUM 10 MG TABLET. PO SCH (20:44)
[2018-08-26] MEDS: LATANOPROST 0.005% OPHTH SOLUTION 2.5ML BOTTLE. OU SCH (20:50)
[2018-08-26] MEDS: hydrOXYzine HCL 10 MG TABLET PO SCH (20:50)
[2018-08-26] MEDS: HYDROCORTISONE 1% TOPICAL CREAM 30GM TUBE. TP PRN (20:50)
--- NOTE | 2018-08-26 23:04 | PDOC ---
Exam Note: Kt Note: Please also refer to the separate dictated note~for this date of service dictated separately.~Patient seen individually. Discussed the patient with Nursing staff reviewed the chart.~Reviewed interim history and current functioning. Reviewed vital signs,~Labs/ Radiology~and current medications noted below. Continue current treatment with the changes noted in the dictated addendum note Assessment: Vital Signs: Vital Signs Date Time Temp Pulse Resp B/P (MAP) Pulse Ox O2 Delivery O2 Flow Rate FiO2 08/26/18 21:08 95 Room Air 08/26/18 20:44 94 144/84 08/26/18 18:30 18 08/26/18 15:05 97.4 I&O Intake and Output 08/26/18 07:00 Intake Total 440 ml Balance 440 ml Intake Oral 440 ml Current Medications: Meds: Current Medications Magnesium Hydroxide (Milk Of Magnesia) 2,400 mg 1X ONCE PO Last administered on 08/20/18at 02:19; Start 08/20/18 at 02:00; Stop 08/20/18 at 02:01; Status DC Cephalexin HCl (Keflex) 500 mg 1X ONCE PO Last administered on 08/20/18at 02: 19; Start 08/20/18 at 02:00; Stop 08/20/18 at 02:01; Status DC Cephalexin HCl (Keflex) 500 mg TID PO Last administered on 08/26/18at 20:43; Start 08/20/18 at 09:00 Acetaminophen (Tylenol) 650 mg PRN Q6HRS PRN PO PAIN / TEMP; Start 08/20/18 at 03:15 Multi-Ingredient Ointment (Analgesic [place]) 1 dayton PRN QID PRN TP MUSCLE PAIN; Start 08/20/18 at 03:15 Al Hydroxide/Mg Hydroxide (Mylanta Plus Xs) 15 ml PRN AFTMEALHC PRN PO DYSPEPSIA; Start 08/20/18 at 03:15; Stop 08/20/18 at 17:00; Status DC Magnesium Hydroxide (Milk Of Magnesia) 2,400 mg PRN QHS PRN PO CONSTIPATION; Start 08/20/18 at 03:15; Stop 08/20/18 at 17:00; Status DC Ascorbic Acid (Vitamin C) 500 mg DAILY PO Last administered on 08/26/18at 08:16 ; Start 08/20/18 at 09:00 Bisacodyl (Dulcolax Tab) 5 mg PRN DAILY PRN PO CONSTIPATION Last administered on 08/21/18 07:24; Start 08/20/18 at 03:45 Clopidogrel Bisulfate (Plavix) 75 mg DAILY PO Last administered on 08/26/18 08 :16; Start 08/20/18 at 09:00 Hydrocortisone (Proctosol-Hc) 1 dayton BID RC Last administered on 08/23/18 08:21 ; Start 08/20/18 at 09:00; Stop 08/23/18 at 19:56; Status DC Linaclotide (Linzess) 145 mcg DAILY PO Last administered on 08/26/18 09:04; Start 08/20/18 at 09:00 Lisinopril (Prinivil) 10 mg DAILY PO Last administered on 08/26/18 09:05; Start 08/20/18 at 09:00 Methenamine Hippurate (Hiprex) 1 gm BID PO Last administered on 08/26/18at 20:50 ; Start 08/20/18 at 09:00 Metoprolol Tartrate (Lopressor) 25 mg BID PO Last administered on 08/26/18 20: 44; Start 08/20/18 at 09:00 Ondansetron HCl (Zofran Odt) 4 mg PRN Q8HRS PRN PO NAUSEA/VOMITING; Start at 04:15 Senna/Docusate Sodium (Senna Plus) 1 tab BID PO Last administered on 08/26/18at 20:43; Start 08/20/18 at 09:00 Atorvastatin Calcium (Lipitor) 10 mg QHS PO Last administered on 08/26/18at 20: 44; Start 08/20/18 at 21:00 Gabapentin (Neurontin) 600 mg BID PO Last administered on 08/26/18 20:45; Start 08/20/18 at 09:00 Hydrocortisone (Cortaid) 1 dayton PRN BID PRN TP RASH RIGHT ARM Last administered on 08/26/18 20:50; Start 08/20/18 at 04:30 Hydroxyzine HCl (Atarax) 10 mg QHS PO Last administered on 08/26/18 20:50; Start 08/20/18 at 21:00 Latanoprost (Xalatan) 1 drop QHS OU Last administered on 08/26/18 20:50; Start 08/20/18 at 21:00 Levothyroxine Sodium (Synthroid) 25 mcg DAILY06 PO Last administered on 05:20; Start 08/20/18 at 06:00 Magnesium Chloride (Mag Delay) 64 mg BID PO Last administered on 08/26/18 20: 43; Start 08/20/18 at 09:00 Melatonin 3 mg QHS PO Last administered on 08/26/18 20:44; Start 08/20/18 at 21:00 Multivitamins/ Calcium (Thera-M Plus) 1 tab DAILY PO Last administered on 08:16; Start 08/20/18 at 09:00 Oxycodone HCl (Roxicodone) 20 mg PRN Q4HRS PRN PO PAIN Last administered on 21:07; Start 08/20/18 at 06:00 Polyethylene Glycol (miraLAX) 17 gm PRN DAILY PRN PO CONSTIPATION; Start 08/20 at 09:00; Stop 08/21/18 at 09:00; Status DC Pramipexole Dihydrochloride (miraPEX) 0.125 mg QHS PO Last administered on 08/26 20:43; Start 08/20/18 at 21:00 Ropinirole HCl (Requip) 2 mg BID PO Last administered on 08/26/18 20:43; Start 08/20/18 at 09:00 Trazodone HCl (Desyrel) 50 mg QHS PO Last administered on 08/26/18 20:44; Start 08/20/18 at 21:00 Venlafaxine HCl (Effexor) 50 mg TID PO Last administered on 08/26/18 20:44; Start 08/20/18 at 09:00 Olanzapine (ZyPREXA ZYDIS) 2.5 mg PRN Q2HR PRN PO PSYCHOSIS Last administered on 08/20/18 14:08; Start 08/20/18 at 04:00 Lactobacillus Rhamnosus (Culturelle) 1 cap BID PO Last administered on 20:44; Start 08/20/18 at 21:00 Al Hydroxide/Mg Hydroxide (Mylanta Plus Xs) 15 ml DAILY PO Last administered on 08/26/18 09:06; Start 08/21/18 at 09:00 Magnesium Hydroxide (Milk Of Magnesia) 2,400 mg DAILY PO Last administered on 08/24/18 09:03; Start 08/21/18 at 09:00 Polyethylene Glycol (miraLAX) 17 gm DAILY PO Last administered on 08/26/18 09: 06; Start 08/21/18 at 09:00 Magnesium Hydroxide (Milk Of Magnesia) 2,400 mg STK-MED ONCE .ROUTE Last administered on 08/21/18at 07:29; Start 08/21/18 at 07:21; Stop 08/21/18 at 07 :22; Status DC Buspirone HCl (Buspar) 5 mg BID@0900,1700 PO Last administered on 08/23/18 16: 45; Start 08/21/18 at 17:00; Stop 08/24/18 at 09:00; Status DC Buspirone HCl (Buspar) 5 mg TID PO Last administered on 08/26/18at 20:43; Start 08/23/18 at 21:00 Hydrocortisone (Proctosol-Hc) 1 dayton BID RC Last administered on 08/26/18 20:50 ; Start 08/23/18 at 19:56 Albuterol/ Ipratropium (Duoneb) 3 ml RTQID NEB Last administered on 08/26/18 21:07; Start 08/24/18 at 08:00 Active Scripts Active Reported Anusol-Hc (Hydrocortisone) 30 Gm Cream..g. 1 [place] TP BID Hydrocortisone 59 Ml Lotion 1 [place] TP PRN BID PRN Mirapex (Pramipexole Di-Hcl) 0.25 Mg Tablet 0.125 Mg PO QHS Hydroxyzine Hcl 10 Mg Tablet 10 Mg PO QHS Plavix (Clopidogrel Bisulfate) 75 Mg Tablet 75 Mg PO DAILY Requip (Ropinirole Hcl) 1 Mg Tablet 2 Mg PO BID Linzess (Linaclotide) 145 Mcg Capsule 145 Mcg PO DAILY Vitamin C (Ascorbic Acid) 500 Mg Tablet 500 Mg PO DAILY Effexor Xr (Venlafaxine Hcl) 150 Mg Cap.er.24h 150 Mg PO DAILY Trazodone Hcl 50 Mg Tablet 50 Mg PO QHS Senna-S Tablet (Sennosides/Docusate Sodium) 1 Each Tablet 1 Tab PO BID Zofran Odt (Ondansetron) 4 Mg Tab.rapdis 4 Mg PO PRN Q8HRS PRN Multivitamins (Multivitamin) 1 Each Tablet 1 Tab PO DAILY Miralax (Polyethylene Glycol 3350) 17 Gm Powd.pack 17 Gm PO PRN DAILY PRN Metoprolol Tartrate 25 Mg Tablet 25 Mg PO BID Methenamine Hippurate 1 Gm Tablet 1 Gm PO BID Melatonin 3 Mg Tablet 3 Mg PO QHS Magnesium Chloride 64 Mg Tablet.dr 64 Mg PO BID Lisinopril 10 Mg Tablet 10 Mg PO DAILY Levothyroxine Sodium 25 Mcg Tablet 25 Mcg PO DAILYAC Latanoprost 2.5 Ml Drops 1 Drop EACHEYE QHS Gabapentin 600 Mg Tablet 600 Mg PO TID Bisacodyl 5 Mg Tablet.dr 5 Mg PO PRN DAILY PRN Atorvastatin Calcium 10 Mg Tablet 10 Mg PO DAILY Oxycodone Hcl 10 Mg Tablet 20 Mg PO PRN Q4HRS PRN I have reviewed the current psychotropics carefully including drug interactions. Risk benefit ratio favors no change other than as noted in my dictated progress note. Diagnosis: Problems: (1) Suicidal ideations (2) Anxiety disorder (3) Bipolar affective disorder, mixed (4) Impulse control disorder (5) Major depressive disorder, recurrent episode AIME ROYAL MD Aug 26, 2018 23:03
--- NOTE | 2018-08-26 23:43 | PN ---
DATE: 08/25/2018 This is a late entry 08/25/2018, covers the elements not covered in my initial note. SUBJECTIVE: I met with the patient in the evening. The patient slept 7-1/2 hours the previous night. I met with her in her room. She has been somewhat anxious, irritable at times, but redirects. REVIEW OF SYSTEMS: Ambulation impaired, in a wheelchair. No CV, , pulmonary, eye, ENT system symptoms on review. Reliability fair. MENTAL STATUS EXAM: Reasonably oriented. Speech is coherent, abstraction fair, computation impaired, language function intact, attention span short. Mood and affect is improved. No suicidal or homicidal ideation. LABORATORY DATA: Reviewed. IMPRESSION: Major depressive disorder, recurrent. Bipolar 1 disorder, unspecified. PLAN: No change from initial note. She does appear anxious. We may need to increase BuSpar. MAN Kamila ROYAL MD DR: ALLAN/luiz JOB#: [id number] / [id number]
[2018-08-27] MEDS: oxyCODONE IR 5 MG TABLET PO PRN ×4 (02:55→18:38)
[2018-08-27] MEDS: IPRATRPIUM/ALBUTEROL 0.5/2.5MG 3 ML NEBU. NEB SCH ×4 (05:08→20:33)
[2018-08-27] MEDS: LEVOTHYROXINE 25 MCG TABLET. PO SCH (06:04)
[2018-08-27 06:08] VITALS: BP 143/86
[2018-08-27] MEDS: busPIRone 5 MG TABLET. PO SCH ×3 (07:46→20:01)
[2018-08-27] MEDS: LACTOBACILLUS RHAMNOSUS GG 1 CAPSULE. PO SCH ×2 (07:46→20:01)
[2018-08-27] MEDS: CEPHALEXIN 250 MG CAPSULE PO SCH ×3 (07:47→20:02)
[2018-08-27] MEDS: VENLAFAXINE 50 MG TABLET. PO SCH ×3 (07:47→20:00)
[2018-08-27] MEDS: MAGNESIUM CHLORIDE ER 64 MG TABLET.ER PO SCH ×2 (07:48→20:00)
[2018-08-27] MEDS: METOPROLOL TART IMMED RELEASE 25 MG TABLET PO SCH ×2 (07:48→20:02)
[2018-08-27] MEDS: MAG HYDROX/AL HYDROX/SIMETH 30 ML ORAL.SUSP PO SCH (07:48)
[2018-08-27] MEDS: GABAPENTIN 300 MG CAPSULE. PO SCH ×2 (07:49→20:01)
[2018-08-27] MEDS: CLOPIDOGREL BISULFATE 75 MG TABLET PO SCH (07:49)
[2018-08-27] MEDS: LISINOPRIL 10 MG TABLET PO SCH (07:49)
[2018-08-27] MEDS: HYDROCORTISONE 2.5% RECTAL CREAM 30GM TUBE. RC SCH ×2 (07:50→20:04)
[2018-08-27] MEDS: rOPINIRole 2 MG TABLET. PO SCH ×2 (07:50→20:00)
[2018-08-27] MEDS: SENNOSIDES/DOCUSATE 8.6/50MG TABLET. PO SCH ×2 (07:50→20:00)
[2018-08-27] MEDS: ASCORBIC ACID 500 MG TABLET PO SCH (07:50)
[2018-08-27] MEDS: POLYETHYLENE GLYCOL 3350 17 GM PACKET. PO SCH (07:50)
[2018-08-27] MEDS: MULTIVITAMIN with MINERAL TABLET. PO SCH (07:50)
[2018-08-27] MEDS: MAGNESIUM HYDROXIDE 2,400 MG/30 ML ORAL.SUSP. PO SCH (07:51)
[2018-08-27] MEDS: LINACLOTIDE 145 MCG CAPSULE. PO SCH (07:52)
[2018-08-27] MEDS: METHENAMINE HIPPURATE 1 GM TABLET PO SCH ×2 (07:52→20:03)
--- NOTE | 2018-08-27 14:44 | PN ---
DATE: 08/26/2018 PSYCHIATRIC PROGRESS NOTE This late entry 08/26/2018 covers elements not covered in my initial note. SUBJECTIVE: I met with the patient at length in the evening. The patient slept 7 hours previous night. She has been somewhat demanding per nursing staff. Otherwise, appropriate. REVIEW OF SYSTEMS: Ambulation impaired, in wheelchair. No CV, , pulmonary, eye, ENT system symptoms on review. MENTAL STATUS EXAM: Reasonably oriented. Speech coherent, abstraction fair, computation 1 step on serial 7's. No suicidal or homicidal ideation. Mood and affect remain somewhat anxious, labile at times. She talked at length individually about growing [place], [place] and how her father was somewhat perfectionistic, expecting the same of his children and various incidents on the farm and at the home on the farm with her mother that she recalled quite vividly and very animated about it. Processes with her. No active suicidal or homicidal ideation. LABORATORY DATA: Reviewed. IMPRESSION: Major depressive disorder, recurrent, in partial remission; bipolar 1 disorder, mixed anxiety disorder, unspecified. PLAN: BuSpar 5 mg 5 mg twice a day, we will increase to 3 times a day. Maintain Effexor ER 150 mg a day, Atarax 10 mg at bedtime, melatonin 3 mg at bedtime for now. MAN Kamila ROYAL MD DR: ALLAN/luiz JOB#: [id number] / [id number]
[2018-08-27 16:09] VITALS: BP 160/87
[2018-08-27] MEDS: hydrOXYzine HCL 10 MG TABLET PO SCH (20:00)
[2018-08-27] MEDS: PRAMIPEXOLE 0.25 MG TABLET. PO SCH (20:01)
[2018-08-27] MEDS: traZODone 50 MG TABLET. PO SCH (20:02)
[2018-08-27] MEDS: LATANOPROST 0.005% OPHTH SOLUTION 2.5ML BOTTLE. OU SCH (20:02)
[2018-08-27] MEDS: ATORVASTATIN CALCIUM 10 MG TABLET. PO SCH (20:02)
[2018-08-27] MEDS: MELATONIN 3 MG TABLET PO SCH (20:02)
[2018-08-27] MEDS ORDERED: LIDO30CR TP (21:02)
[2018-08-27] MEDS ORDERED: LIDOCAINE 2% TOPICAL JELLY 30GM TUBE. TP PRN (21:15)
[2018-08-28] MEDS ORDERED: VENL37.56 PO (01:18)
[2018-08-28] MEDS: IPRATRPIUM/ALBUTEROL 0.5/2.5MG 3 ML NEBU. NEB SCH ×2 (05:21→12:05)
[2018-08-28] MEDS: oxyCODONE IR 5 MG TABLET PO PRN ×3 (05:24→14:53)
[2018-08-28] MEDS: LEVOTHYROXINE 25 MCG TABLET. PO SCH (05:24)
[2018-08-28 05:47] VITALS: BP 135/77
[2018-08-28] MEDS ORDERED: BUSP5TAB PO (07:32)
[2018-08-28] MEDS ORDERED: OLAN2.5T3 PO (07:36)
[2018-08-28] MEDS ORDERED: LACT1CAP21 PO (07:38)
[2018-08-28] MEDS: SENNOSIDES/DOCUSATE 8.6/50MG TABLET. PO SCH (08:09)
[2018-08-28] MEDS: rOPINIRole 2 MG TABLET. PO SCH (08:09)
[2018-08-28] MEDS: LACTOBACILLUS RHAMNOSUS GG 1 CAPSULE. PO SCH (08:09)
[2018-08-28] MEDS: CEPHALEXIN 250 MG CAPSULE PO SCH ×2 (08:09→14:52)
[2018-08-28] MEDS: CLOPIDOGREL BISULFATE 75 MG TABLET PO SCH (08:09)
[2018-08-28] MEDS: ASCORBIC ACID 500 MG TABLET PO SCH (08:10)
[2018-08-28] MEDS: LISINOPRIL 10 MG TABLET PO SCH (08:10)
[2018-08-28] MEDS: MULTIVITAMIN with MINERAL TABLET. PO SCH (08:10)
[2018-08-28 08:11] VITALS: BP 135/77
[2018-08-28] MEDS: MAGNESIUM CHLORIDE ER 64 MG TABLET.ER PO SCH (08:11)
[2018-08-28] MEDS: busPIRone 5 MG TABLET. PO SCH ×2 (08:11→14:52)
[2018-08-28] MEDS: METOPROLOL TART IMMED RELEASE 25 MG TABLET PO SCH (08:11)
[2018-08-28] MEDS: GABAPENTIN 300 MG CAPSULE. PO SCH (08:11)
[2018-08-28] MEDS: MAGNESIUM HYDROXIDE 2,400 MG/30 ML ORAL.SUSP. PO SCH (08:12)
[2018-08-28] MEDS: VENLAFAXINE 50 MG TABLET. PO SCH ×2 (08:12→14:52)
[2018-08-28] MEDS: MAG HYDROX/AL HYDROX/SIMETH 30 ML ORAL.SUSP PO SCH (08:12)
[2018-08-28] MEDS: POLYETHYLENE GLYCOL 3350 17 GM PACKET. PO SCH (08:12)
[2018-08-28] MEDS: METHENAMINE HIPPURATE 1 GM TABLET PO SCH (08:14)
[2018-08-28] MEDS: HYDROCORTISONE 2.5% RECTAL CREAM 30GM TUBE. RC SCH (09:00)
[2018-08-28] MEDS: LINACLOTIDE 145 MCG CAPSULE. PO SCH (09:00)
[2018-08-28] MEDS ORDERED: CEPH-263 PO (13:41)
--- NOTE | 2018-08-28 19:26 | PN ---
DATE: 08/27/2018 PSYCHIATRIC PROGRESS NOTE This late entry 08/27/2018 covers elements not covered in my initial note. SUBJECTIVE: I met with the patient in the evening. The patient slept 6-1/4 hours previous night. She remains quite well oriented, but somewhat perfectionistic, rigid, wants things done in a particular manner. She does have chronic pain. Ambulation impaired, in wheelchair, received oxycodone 20 mg x 2. Well oriented to situation and date. REVIEW OF SYSTEMS: Positive for the pain, impaired ambulation. No CV, , pulmonary, eye, ENT system symptoms on review. MENTAL STATUS EXAM: Reasonably oriented. Speech coherent, abstraction fair. Computation, able to do 2 step on serial 7's. No suicidal or homicidal ideation. Short term memory, has some mild impairment, remains somewhat anxious, rigid at times, but improved. LABORATORY DATA: Reviewed. IMPRESSION: Major depressive disorder, recurrent; history of bipolar 1 disorder, mixed. Rest unchanged. PLAN: No change from initial note. AIME ROYAL MD DR: ALLAN/luiz JOB#: [id number] / [id number]
--- NOTE | 2018-08-28 23:07 | PDOC ---
Exam Note: Kt Note: Please also refer to the separate dictated note~for this date of service dictated separately.~Patient seen individually. Discussed the patient with Nursing staff reviewed the chart.~Reviewed interim history and current functioning. Reviewed vital signs,~Labs/ Radiology~and current medications noted below. Continue current treatment with the changes noted in the dictated addendum note Assessment: Vital Signs: Vital Signs Date Time Temp Pulse Resp B/P (MAP) Pulse Ox O2 Delivery O2 Flow Rate FiO2 08/28/18 12:07 97 Room Air 08/28/18 11:42 20 08/28/18 08:11 83 135/77 08/28/18 05:47 97.8 08/27/18 06:08 97.0 I&O Intake and Output 08/28/18 07:00 Intake Total 1440 ml Balance 1440 ml Intake Oral 1440 ml Current Medications: Meds: Current Medications Magnesium Hydroxide (Milk Of Magnesia) 2,400 mg 1X ONCE PO Last administered on 08/20/18at 02:19; Start 08/20/18 at 02:00; Stop 08/20/18 at 02:01; Status DC Cephalexin HCl (Keflex) 500 mg 1X ONCE PO Last administered on 08/20/18at 02: 19; Start 08/20/18 at 02:00; Stop 08/20/18 at 02:01; Status DC Cephalexin HCl (Keflex) 500 mg TID PO Last administered on 08/28/18at 14:52; Start 08/20/18 at 09:00; Stop 08/28/18 at 16:04; Status DC Acetaminophen (Tylenol) 650 mg PRN Q6HRS PRN PO PAIN / TEMP; Start 08/20/18 at 03:15; Stop 08/28/18 at 16:04; Status DC Multi-Ingredient Ointment (Analgesic [place]) 1 day[place] PRN QID PRN TP MUSCLE PAIN; Start 08/20/18 at 03:15; Stop 08/28/18 at 16:04; Status DC Al Hydroxide/Mg Hydroxide (Mylanta Plus Xs) 15 ml PRN AFTMEALHC PRN PO DYSPEPSIA; Start 08/20/18 at 03:15; Stop 08/20/18 at 17:00; Status DC Magnesium Hydroxide (Milk Of Magnesia) 2,400 mg PRN QHS PRN PO CONSTIPATION; Start 08/20/18 at 03:15; Stop 08/20/18 at 17:00; Status DC Ascorbic Acid (Vitamin C) 500 mg DAILY PO Last administered on 08/28/18at 08:10 ; Start 08/20/18 at 09:00; Stop 08/28/18 at 16:04; Status DC Bisacodyl (Dulcolax Tab) 5 mg PRN DAILY PRN PO CONSTIPATION Last administered on 08/21/18at 07:24; Start 08/20/18 at 03:45; Stop 08/28/18 at 16:04; Status DC Clopidogrel Bisulfate (Plavix) 75 mg DAILY PO Last administered on 08/28/18at 08 :09; Start 08/20/18 at 09:00; Stop 08/28/18 at 16:04; Status DC Hydrocortisone (Proctosol-Hc) 1 [place] BID RC Last administered on 08/23/18at 08:21 ; Start 08/20/18 at 09:00; Stop 08/23/18 at 19:56; Status DC Linaclotide (Linzess) 145 mcg DAILY PO Last administered on 08/28/18at 09:00; Start 08/20/18 at 09:00; Stop 08/28/18 at 16:04; Status DC Lisinopril (Prinivil) 10 mg DAILY PO Last administered on 08/28/18at 08:10; Start 08/20/18 at 09:00; Stop 08/28/18 at 16:04; Status DC Methenamine Hippurate (Hiprex) 1 gm BID PO Last administered on 08/28/18at 08:14 ; Start 08/20/18 at 09:00; Stop 08/28/18 at 16:04; Status DC Metoprolol Tartrate (Lopressor) 25 mg BID PO Last administered on 08/28/18at 08: 11; Start 08/20/18 at 09:00; Stop 08/28/18 at 16:04; Status DC Ondansetron HCl (Zofran Odt) 4 mg PRN Q8HRS PRN PO NAUSEA/VOMITING; Start at 04:15; Stop 08/28/18 at 16:04; Status DC Senna/Docusate Sodium (Senna Plus) 1 tab BID PO Last administered on 08/28/18at 08:09; Start 08/20/18 at 09:00; Stop 08/28/18 at 16:04; Status DC Atorvastatin Calcium (Lipitor) 10 mg QHS PO Last administered on 08/27/18at 20: 02; Start 08/20/18 at 21:00; Stop 08/28/18 at 16:04; Status DC Gabapentin (Neurontin) 600 mg BID PO Last administered on 08/28/18at 08:11; Start 08/20/18 at 09:00; Stop 08/28/18 at 16:04; Status DC Hydrocortisone (Cortaid) 1 day[place] PRN BID PRN TP RASH RIGHT ARM Last administered on 08/26/18at 20:50; Start 08/20/18 at 04:30; Stop 08/28/18 at 16:04; Status DC Hydroxyzine HCl (Atarax) 10 mg QHS PO Last administered on 08/27/18at 20:00; Start 08/20/18 at 21:00; Stop 08/28/18 at 16:04; Status DC Latanoprost (Xalatan) 1 drop QHS OU Last administered on 08/27/18at 20:02; Start 08/20/18 at 21:00; Stop 08/28/18 at 16:04; Status DC Levothyroxine Sodium (Synthroid) 25 mcg DAILY06 PO Last administered on at 05:24; Start 08/20/18 at 06:00; Stop 08/28/18 at 16:04; Status DC Magnesium Chloride (Mag Delay) 64 mg BID PO Last administered on 08/28/18at 08: 11; Start 08/20/18 at 09:00; Stop 08/28/18 at 16:04; Status DC Melatonin 3 mg QHS PO Last administered on 08/27/18at 20:02; Start 08/20/18 at 21:00; Stop 08/28/18 at 16:04; Status DC Multivitamins/ Calcium (Thera-M Plus) 1 tab DAILY PO Last administered on at 08:10; Start 08/20/18 at 09:00; Stop 08/28/18 at 16:04; Status DC Oxycodone HCl (Roxicodone) 20 mg PRN Q4HRS PRN PO PAIN Last administered on 08/28/18at 14:53; Start 08/20/18 at 06:00; Stop 08/28/18 at 16:04; Status DC Polyethylene Glycol (miraLAX) 17 gm PRN DAILY PRN PO CONSTIPATION; Start 08/20 at 09:00; Stop 08/21/18 at 09:00; Status DC Pramipexole Dihydrochloride (miraPEX) 0.125 mg QHS PO Last administered on 08/27at 20:01; Start 08/20/18 at 21:00; Stop 08/28/18 at 16:04; Status DC Ropinirole HCl (Requip) 2 mg BID PO Last administered on 08/28/18at 08:09; Start 08/20/18 at 09:00; Stop 08/28/18 at 16:04; Status DC Trazodone HCl (Desyrel) 50 mg QHS PO Last administered on 08/27/18at 20:02; Start 08/20/18 at 21:00; Stop 08/28/18 at 16:04; Status DC Venlafaxine HCl (Effexor) 50 mg TID PO Last administered on 08/28/18at 14:52; Start 08/20/18 at 09:00; Stop 08/28/18 at 16:04; Status DC Olanzapine (ZyPREXA ZYDIS) 2.5 mg PRN Q2HR PRN PO PSYCHOSIS Last administered on 08/20/18at 14:08; Start 08/20/18 at 04:00; Stop 08/28/18 at 16:04; Status DC Lactobacillus Rhamnosus (Culturelle) 1 cap BID PO Last administered on at 08:09; Start 08/20/18 at 21:00; Stop 08/28/18 at 16:04; Status DC Al Hydroxide/Mg Hydroxide (Mylanta Plus Xs) 15 ml DAILY PO Last administered on 08/28/18at 08:12; Start 08/21/18 at 09:00; Stop 08/28/18 at 16:04; Status DC Magnesium Hydroxide (Milk Of Magnesia) 2,400 mg DAILY PO Last administered on 08/28/18at 08:12; Start 08/21/18 at 09:00; Stop 08/28/18 at 16:04; Status DC Polyethylene Glycol (miraLAX) 17 gm DAILY PO Last administered on 08/28/18at 08: 12; Start 08/21/18 at 09:00; Stop 08/28/18 at 16:04; Status DC Magnesium Hydroxide (Milk Of Magnesia) 2,400 mg STK-MED ONCE .ROUTE Last administered on 08/21/18at 07:29; Start 08/21/18 at 07:21; Stop 08/21/18 at 07 :22; Status DC Buspirone HCl (Buspar) 5 mg BID@0900,1700 PO Last administered on 08/23/18at 16: 45; Start 08/21/18 at 17:00; Stop 08/24/18 at 09:00; Status DC Buspirone HCl (Buspar) 5 mg TID PO Last administered on 08/28/18at 14:52; Start 08/23/18 at 21:00; Stop 08/28/18 at 16:04; Status DC Hydrocortisone (Proctosol-Hc) 1 day[place] BID RC Last administered on 08/28/18at 09:00 ; Start 08/23/18 at 19:56; Stop 08/28/18 at 16:04; Status DC Albuterol/ Ipratropium (Duoneb) 3 ml RTQID NEB Last administered on 08/28/18at 12:05; Start 08/24/18 at 08:00; Stop 08/28/18 at 16:04; Status DC Lidocaine HCl (Xylocaine 2% Topical 30gm Tube) 1 day[place] QIDPRN PRN TP HEMORRHOIDS ; Start 08/27/18 at 21:15; Stop 08/28/18 at 16:04; Status DC Active Scripts Active Reported Keflex (Cephalexin) 250 Mg Capsule 250 Mg PO TID Culturelle (Lactobacillus Rhamnosus Gg) 1 Each Capsule 1 Each PO DAILY Zyprexa (Olanzapine) 2.5 Mg Tablet 2.5 Mg PO PRN Q2HR PRN Buspirone Hcl 5 Mg Tablet 5 Mg PO TID Venlafaxine Hcl 37.5 Mg Tablet 50 Mg PO TID Lidocaine-Prilocaine Cream (Lidocaine/Prilocaine) 30 Gm Cream..g. 1 [place] TP QIDPRN PRN Anusol-Hc (Hydrocortisone) 30 Gm Cream..g. 1 [place] TP BID Hydrocortisone 59 Ml Lotion 1 [place] TP PRN BID PRN Mirapex (Pramipexole Di-Hcl) 0.25 Mg Tablet 0.125 Mg PO QHS Hydroxyzine Hcl 10 Mg Tablet 10 Mg PO QHS Plavix (Clopidogrel Bisulfate) 75 Mg Tablet 75 Mg PO DAILY Requip (Ropinirole Hcl) 1 Mg Tablet 2 Mg PO BID Linzess (Linaclotide) 145 Mcg Capsule 145 Mcg PO DAILY Vitamin C (Ascorbic Acid) 500 Mg Tablet 500 Mg PO DAILY Trazodone Hcl 50 Mg Tablet 50 Mg PO QHS Senna-S Tablet (Sennosides/Docusate Sodium) 1 Each Tablet 1 Tab PO BID Zofran Odt (Ondansetron) 4 Mg Tab.rapdis 4 Mg PO PRN Q8HRS PRN Multivitamins (Multivitamin) 1 Each Tablet 1 Tab PO DAILY Miralax (Polyethylene Glycol 3350) 17 Gm Powd.pack 17 Gm PO PRN DAILY PRN Metoprolol Tartrate 25 Mg Tablet 25 Mg PO BID Methenamine Hippurate 1 Gm Tablet 1 Gm PO BID Melatonin 3 Mg Tablet 3 Mg PO QHS Magnesium Chloride 64 Mg Tablet.dr 64 Mg PO BID Lisinopril 10 Mg Tablet 10 Mg PO DAILY Levothyroxine Sodium 25 Mcg Tablet 25 Mcg PO DAILYAC Latanoprost 2.5 Ml Drops 1 Drop EACHEYE QHS Gabapentin 600 Mg Tablet 600 Mg PO TID Bisacodyl 5 Mg Tablet.dr 5 Mg PO PRN DAILY PRN Atorvastatin Calcium 10 Mg Tablet 10 Mg PO DAILY Oxycodone Hcl 10 Mg Tablet 20 Mg PO PRN Q4HRS PRN I have reviewed the current psychotropics carefully including drug interactions. Risk benefit ratio favors no change other than as noted in my dictated progress note. Diagnosis: Problems: (1) Anxiety disorder (2) Bipolar affective disorder, mixed (3) Impulse control disorder (4) Major depressive disorder, recurrent episode AIME ROYAL MD Aug 28, 2018 23:07
--- NOTE | 2018-08-30 13:42 | DS ---
DATE OF DISCHARGE: 08/28/2018 DISCHARGE SUMMARY/PSYCHIATRIC PROGRESS NOTE This is a late entry 08/28/2018 covers elements not covered in my initial note. I met with the patient individually. REASON FOR ADMISSION: Please refer to the admission history for details. Briefly, the patient is a 78-year-old female referred to us from [facility] by her outpatient psychiatrist and primary care physician on account of making suicidal statements. She had been depressed and said she was going to climb a tree and jump out of it and landed on her head. She said she knows how to climb trees. Mood reportedly was extremely labile. She was tearful, admits to feeling hopeless, helpless, worthless, depressed, referred for inpatient psychiatric stabilization. SIGNIFICANT FINDINGS AND CLINICAL COURSE: Following admission, the patient was seen daily individually by myself from a psychiatric standpoint, medical followup with Dr. Glass/Dr. Chatterjee. The patient was quite anxious, labile, depressed. She had fleeting suicidal ideation initially, but then was able to recognize alternate healthy manner and ways to express her frustration, anger and depression. She seemed to respond to a combination of Effexor ER 150 mg a day, BuSpar 5 mg t.i.d. was added for anxiety and she is on melatonin 3 mg at bedtime, trazodone 50 mg at bedtime, Atarax 10 mg at bedtime. REVIEW OF SYSTEMS: Prior to discharge on 08/28/2018, ambulation impaired, in wheelchair. No CV, , pulmonary, eye, ENT system symptoms on review. MENTAL STATUS EXAM: Oriented reasonably. Speech coherent, abstraction fair, computation impaired, language function intact. Mood and affect still somewhat anxious, but no suicidal ideation and otherwise not depressed. CONDITION AT DISCHARGE: Improved. FINAL DIAGNOSES: Major depressive disorder, recurrent, in partial remission; anxiety disorder, unspecified; impulse control disorder, unspecified. Rest unchanged from admission. DISCHARGE MEDICATIONS: Please refer to the MRAD. DISCHARGE INSTRUCTIONS: Outpatient psychiatric and medical followup at the sn[facility]. MAN Kamila ROYAL MD DR: ALLAN/luiz JOB#: [id number] / [id number]
== END 2018-08-28 16:00 | disposition home or self-care (01) | DRG 885 ==
LOC: ER 00:16 → GEROPSY 02:31
PROVIDERS: ADMIT Psychiatry & Neurology Psychiatry; ATTEND Psychiatry & Neurology Psychiatry
DX: F31.60 Bipolar disorder, current episode mixed, unspecified (principal); R45.851 Suicidal ideations; N39.0 Urinary tract infection, site not specified; E03.9 Hypothyroidism, unspecified; E11.40 Type 2 diabetes mellitus with diabetic neuropathy, unspecified; E11.51 Type 2 diabetes mellitus with diabetic peripheral angiopathy without gangrene; E78.00 Pure hypercholesterolemia, unspecified; E78.5 Hyperlipidemia, unspecified; F03.90 Unspecified dementia, unspecified severity, without behavioral disturbance, psychotic disturbance, mood disturbance, and anxiety; F41.9 Anxiety disorder, unspecified; F63.9 Impulse disorder, unspecified; G25.81 Restless legs syndrome; G89.4 Chronic pain syndrome; I10 Essential (primary) hypertension; I25.10 Atherosclerotic heart disease of native coronary artery without angina pectoris; E83.42 Hypomagnesemia; I48.91 Unspecified atrial fibrillation; K21.9 Gastro-esophageal reflux disease without esophagitis; K58.9 Irritable bowel syndrome, unspecified; Z66 Do not resuscitate; K59.09 Other constipation; M19.90 Unspecified osteoarthritis, unspecified site; Z88.8 Allergy status to other drugs, medicaments and biological substances; Z88.1 Allergy status to other antibiotic agents; Z79.899 Other long term (current) drug therapy; Z91.041 Radiographic dye allergy status; Z91.040 Latex allergy status; Z79.02 Long term (current) use of antithrombotics/antiplatelets; Z79.84 Long term (current) use of oral hypoglycemic drugs
CPT/HCPCS: 36415; 71045; 74022; 80048; 80053; 80061; 80076; 81001; 82306; 82550; 82607; 82947; 83036; 83540; 83550; 83605; 83690; 83735; 83880; 84436; 84443; 84480; 84484; 85025; 85610; 85651; 85730; 86592; 87040; 87086; 87186; 93005; 94640; J7620; 97110; 97530; 99285-25

== ENCOUNTER 2019-04-30 18:00 | Inpatient (IN) | payer MEDICARE, OTHER ==
[~2019-04-30] VITALS: Ht 162.6 cm; Wt 62.3 kg
[~2019-04-30 18:00] MED LIST: ASCO500T2 PO; ATOR10TA60 PO; BISA5TAB4 PO; BUSP5TAB PO; CEPH-263 PO; CLOP75TA57 PO; GABA600T7 PO; HYDR10TA2 PO; HYDR30CR61 TP; HYDR59LO TP; LACT1CAP21 PO; LATA2.5D3 EACHEYE; LEVO25TA4 PO; LIDO30CR TP; LINA145C PO; LISI10TA2 PO; MAGN64TA7 PO; MELA3TAB2 PO; METH1TAB20 PO; METO25TA4 PO; MULT1TAB52 PO; OLAN2.5T3 PO; ONDA4TAB10 PO; OXYC10TA PO; POLY17PO5 PO; PRAM0.255 PO; ROPI1TAB PO; SENN1TAB15 PO; TRAZ-120 PO; VENL150C PO; VENL37.56 PO
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
[2019-04-30] MEDS ORDERED: IV RINGERS SOLUTION,LACTATED 1,000 ML IV SCH (18:12)
[2019-04-30 18:46] LABS: BARBITURATES NEG (NEG); BENZODIAZEPINES NEG (NEG); CANNABINOIDS NEG (NEG); COCAINE NEG (NEG); METHADONE NEG (NEG); OPIATES POS (NEG); PHENCYCLIDINE NEG (NEG)
[2019-04-30 18:47] LABS: AMPHETAMINE/METHAMPHETAMINE NEG (NEG)
[2019-04-30 18:50] LABS: BACTERIA,URINE MOD /HPF (0-FEW); BILIRUBIN,URINE NEG (NEG); CLARITY,URINE TURBID; COLOR,URINE YELLOW; GLUCOSE,URINE NEG (NEG); NITRITE,URINE POS (NEG); RBC,URINE OCC /HPF (0-2); SQUAMOUS EPITHELIAL CELL,UR MOD /LPF; UROBILINOGEN,URINE 0.2 mg/dL (0.2 mg/dL)
--- NOTE | 2019-04-30 18:59 | RAD ---
CT brain without contrast, CT cervical spine without contrast. HISTORY: Fall on April 24, mental status change CT brain CT scan of the brain was done without contrast. Sinuses are clear. A skull fracture is not identified. There is no mass or hydronephrosis. There is mild decreased density in the white matter from chronic microvascular changes. An acute CVA is not identified. IMPRESSION: 1. No intracranial hemorrhage or acute finding noted. End impression CT cervical spine Axial CT images were obtained to the cervical spine. Sagittal and coronal reconstructed images were reviewed. Thyroid is homogeneous. A C-spine fracture is not identified. There is facet arthritis. There is mild anterior subluxation of C3 relative to C4. There is prominent spurring at C5-6 and C6-7 with spinal stenosis. There is spurring also noted at C3-C4. The canal measures 1 cm at C3-4. Canal measures up 8 mm at C5-6 and 7.5 mm at C6-7. There is mild scoliosis. IMPRESSION: 1. Extensive degenerative changes in the cervical spine. 2. No acute fracture. PQRS Compliance Statement: One or more of the following individualized dose reduction techniques were utilized for this examination: 1. Automated exposure control 2. Adjustment of the mA and/or kV according to patient size 3. Use of iterative reconstruction technique Electronically signed by: Jeffrey Storey MD (04/30/2019 6:56 PM) [facility]
--- NOTE | 2019-04-30 19:01 | RAD ---
Left shoulder 3 views, left humerus 2 views. HISTORY: Fell and fourth April Left shoulder 3 views were taken the left shoulder. There is marked arthritis with joint space narrowing and prominent spurring on the humeral head. There is loss of space between the humerus and acromion from rotator cuff degeneration. There is a probable joint body. There is no fracture or dislocation. Left humerus 2 views were taken of the left humerus. There is not evidence of an acute fracture or osseous abnormality. There is arthritis at the shoulder. IMPRESSION: 1. Arthritis left shoulder. 2. No fracture or dislocation at the shoulder.. 3. No fracture noted in the left humerus. Electronically signed by: Jeffrey Storey MD (04/30/2019 6:58 PM) [facility]
--- NOTE | 2019-04-30 19:02 | RAD ---
AP chest. HISTORY: Recent fall AP view was taken of the chest. There is a shoulder prosthesis on the right with medial superior subluxation of the prosthesis relative to the glenoid fossa and an erosion on the clavicle. There is elevation of the right diaphragm. There is linear atelectasis in both lung bases. There is no effusion. IMPRESSION: 1. Elevated right diaphragm. 2. Linear atelectasis in the lung bases without other infiltrates. Electronically signed by: Jeffrey Storey MD (04/30/2019 6:59 PM) [facility]
[2019-04-30 19:04] LABS: BASO # 0.1 x10^3/uL (0.0-0.2); BASO % 1 % (0-3); EOS # 0.6 x10^3/uL (0.0-0.7); EOS % 8 % (0-3); HEMATOCRIT 30.6 % (36.0-47.0); HEMOGLOBIN 9.4 g/dL (12.0-15.5); LYMPH # 2.5 x10^3/uL (1.0-4.8); LYMPH % 38 % (24-48); MEAN CORPUSCULAR HEMOGLOBIN 24 pg (25-35); MEAN CORPUSCULAR HGB CONC 31 g/dL (31-37); MEAN CORPUSCULAR VOLUME 78 fL (79-100); MONO # 0.7 x10^3/uL (0.0-1.1); MONO % 11 % (0-9); NEUT # 2.8 x10^3uL (1.8-7.7); NEUT % 42 % (31-73); PLATELET COUNT 383 x10^3/uL (140-400); RED BLOOD COUNT 3.93 x10^6/uL (3.50-5.40); RED CELL DISTRIBUTION WIDTH 20.1 % (11.5-14.5); WHITE BLOOD COUNT 6.7 x10^3/uL (4.0-11.0)
[2019-04-30 19:26] LABS: ALBUMIN 3.9 g/dL (3.4-5.0); CALCIUM 9.3 mg/dL (8.5-10.1); CREATININE 1.1 mg/dL (0.6-1.0); DIRECT BILIRUBIN 0.1 mg/dL (0.0-0.2); GFR 48.3; MAGNESIUM 2.2 mg/dL (1.8-2.4); POTASSIUM 4.1 mmol/L (3.5-5.1); TOTAL BILIRUBIN 0.2 mg/dL (0.2-1.0); TOTAL PROTEIN 7.4 g/dL (6.4-8.2)
[2019-04-30] MEDS ORDERED: cefTRIAXone SODIUM 1 GM VIAL ONE (19:34)
[2019-04-30] MEDS ORDERED: IV NORMAL SALINE 50ML 50 ML ONE (19:34)
[2019-04-30] MEDS ORDERED: IV RINGERS SOLUTION,LACTATED 1,000 ML IV ONE (19:45)
[2019-04-30 20:40] LABS: ANISOCYTOSIS MOD; HYPOCHROMIA SLIGHT; MICROCYTOSIS SLIGHT; PLT ESTIMATE ADEQUATE (ADEQUATE); POLYCHROMASIA SLIGHT; SEDIMENTATION RATE 28 (0-25)
[2019-04-30] MEDS ORDERED: ENOXAPARIN ** NOTE DOSE ** SYRINGE SQ ONE (21:00)
[2019-04-30] MEDS: CEPHALEXIN 250 MG CAPSULE PO SCH (21:16)
[2019-04-30] MEDS ORDERED: MAGNESIUM HYDROXIDE 2,400 MG/30 ML ORAL.SUSP. PO PRN (22:00)
[2019-04-30] MEDS ORDERED: MAG HYDROX/AL HYDROX/SIMETH 30 ML ORAL.SUSP PO PRN (22:00)
[2019-04-30] MEDS ORDERED: ACETAMINOPHEN 325 MG TABLET PO PRN ×2 (22:00→23:45)
[2019-04-30] MEDS ORDERED: METHYL SALICYLATE/MENTHOL TOPICAL OINTMENT 29GM TUBE. TP PRN (22:00)
--- NOTE | 2019-04-30 22:19 | PDOC ---
Exam Note: Kt Note: Please also refer to the separate dictated note~for this date of service dictated separately.~Patient seen individually. Discussed the patient with Nursing staff reviewed the chart.~Reviewed interim history and current functioning. Reviewed vital signs,~Labs/ Radiology~and current medications noted below. Continue current treatment with the changes noted in the dictated addendum note Assessment: Vital Signs/I&O: Vital Signs Date Time Temp Pulse Resp B/P (MAP) Pulse Ox O2 Delivery O2 Flow Rate FiO2 04/30/19 21:09 57 16 128/64 (85) 93 Room Air 04/30/19 18:28 98.0 Labs: Laboratory Tests Test 04/30/19 18:20 04/30/19 18:35 04/30/19 19:26 Urine Collection Type Unknown Urine Color Yellow Urine Clarity Turbid Urine pH 6.0 Urine Specific [place] >=1.030 Urine Protein 100 mg/dl (NEG-TRACE) Urine Glucose (UA) Neg mg/dL (NEG) Urine Ketones (Stick) 15 mg/dL (NEG) Urine Blood Neg (NEG) Urine Nitrite Pos (NEG) Urine Bilirubin Neg (NEG) Urine Urobilinogen Dipstick 0.2 mg/dL (0.2 mg/dL) Urine Leukocyte Esterase Mod (NEG) Urine RBC Occ /HPF (0-2) Urine WBC 5-10 /HPF (0-4) Urine Squamous Epithelial Cells Mod /LPF Urine Bacteria Mod /HPF (0-FEW) Urine Opiates Screen Pos (NEG) Urine Methadone Screen Neg (NEG) Urine Barbiturates Neg (NEG) Urine Phencyclidine Screen Neg (NEG) Urine Amphetamine/Methamphetamine Neg (NEG) Urine Benzodiazepines Screen Neg (NEG) Urine Cocaine Screen Neg (NEG) Urine Cannabinoids Screen Neg (NEG) Urine Ethyl Alcohol Neg (NEG) White Blood Count 6.7 x10^3/uL (4.0-11.0) Red Blood Count 3.93 x10^6/uL (3.50-5.40) Hemoglobin 9.4 g/dL (12.0-15.5) L Hematocrit 30.6 % (36.0-47.0) L Mean Corpuscular Volume 78 fL (79-100) L Mean Corpuscular Hemoglobin 24 pg (25-35) L Mean Corpuscular Hemoglobin Concent 31 g/dL (31-37) Red Cell Distribution Width 20.1 % (11.5-14.5) H Platelet Count 383 x10^3/uL (140-400) Neutrophils (%) (Auto) 42 % (31-73) Lymphocytes (%) (Auto) 38 % (24-48) Monocytes (%) (Auto) 11 % (0-9) H Eosinophils (%) (Auto) 8 % (0-3) H Basophils (%) (Auto) 1 % (0-3) Neutrophils # (Auto) 2.8 x10^3uL (1.8-7.7) Lymphocytes # (Auto) 2.5 x10^3/uL (1.0-4.8) Monocytes # (Auto) 0.7 x10^3/uL (0.0-1.1) Eosinophils # (Auto) 0.6 x10^3/uL (0.0-0.7) Basophils # (Auto) 0.1 x10^3/uL (0.0-0.2) Platelet Estimate Adequate (ADEQUATE) Polychromasia Slight Hypochromasia Slight Anisocytosis Mod Microcytosis Slight Erythrocyte Sedimentation Rate 28 (0-25) H Sodium Level 138 mmol/L (136-145) Potassium Level 4.1 mmol/L (3.5-5.1) Chloride Level 101 mmol/L (98-107) Carbon Dioxide Level 34 mmol/L (21-32) H Anion Gap 3 (6-14) L Blood Urea Nitrogen 22 mg/dL (7-20) H Creatinine 1.1 mg/dL (0.6-1.0) H Estimated GFR (Cockcroft-Gault) 48.3 Glucose Level 108 mg/dL (70-99) H Calcium Level 9.3 mg/dL (8.5-10.1) Magnesium Level 2.2 mg/dL (1.8-2.4) Total Bilirubin 0.2 mg/dL (0.2-1.0) Direct Bilirubin 0.1 mg/dL (0.0-0.2) Aspartate Amino Transferase (AST) 23 U/L (15-37) Alanine Aminotransferase (ALT) 33 U/L (14-59) Alkaline Phosphatase 111 U/L (46-116) Creatine Kinase 62 U/L (26-192) Troponin I Quantitative < 0.017 ng/mL (0-0.055) AB-Bss-I-Type Natriuretic Peptide 260 pg/mL (0-449) Total Protein 7.4 g/dL (6.4-8.2) Albumin 3.9 g/dL (3.4-5.0) Lipase 55 U/L (73-393) L Prothrombin Time 10.4 SEC (9.4-11.4) Prothrombin Time INR 1.0 (0.9-1.1) PTT 26 SEC (23-33) D-Dimer (Funmilayo) 0.51 mg/L (0.00-0.50) H Current Medications: Meds: Current Medications Medications (Trade) Dose Ordered Sig/Elias Route PRN Reason Start Time Stop Time Status Last Admin Dose Admin Lactated Ringer's 1,000 ml @ 100 mls/hr Q10H IV 04/30/19 18:12 05/01/19 04:11 04/30/19 19:33 Ceftriaxone Sodium 1 gm/ Sodium Chloride 50 ml @ 100 mls/hr 1X ONCE IV 04/30/19 19:15 04/30/19 19:44 DC 04/30/19 19:36 Cephalexin HCl (Keflex) 500 mg TID PO 04/30/19 21:00 04/30/19 21:16 Enoxaparin Sodium (Lovenox 80mg Syringe) 70 mg 1X ONCE SQ 04/30/19 21:00 04/30/19 21:01 DC 04/30/19 21:16 I have reviewed the current psychotropics carefully including drug interactions. Risk benefit ratio favors no change other than as noted in my dictated progress note. Diagnosis: Problems: (1) Paranoid delusion (2) Anxiety disorder (3) Bipolar affective disorder, mixed (4) Impulse control disorder (5) Major depressive disorder, recurrent episode AIME ROYAL MD Apr 30, 2019 22:19
[2019-04-30 22:31] VITALS: BP 169/82
[2019-04-30] MEDS ORDERED: SENN8.6T99 PO (23:22)
[2019-04-30] MEDS ORDERED: CHOL10003 PO (23:22)
[2019-04-30] MEDS ORDERED: FLUT9.9S NS (23:22)
[2019-04-30] MEDS ORDERED: ASPI81TA50 PO (23:22)
[2019-04-30] MEDS ORDERED: RANI150T2 PO (23:22)
[2019-04-30] MEDS ORDERED: MENT118G TP (23:22)
[2019-04-30] MEDS ORDERED: CETI10TA16 PO (23:22)
[2019-04-30] MEDS ORDERED: GABA-586 PO (23:22)
[2019-04-30] MEDS ORDERED: ESTR0.5T3 PO (23:22)
[2019-04-30] MEDS ORDERED: AMIO200T4 PO (23:22)
[2019-04-30] MEDS ORDERED: SUCR1TAB35 PO (23:22)
[2019-04-30] MEDS ORDERED: VENL75TA PO (23:22)
[2019-04-30] MEDS ORDERED: LIDO35.4 TP (23:22)
[2019-04-30] MEDS ORDERED: MAGN400T3 PO (23:22)
[2019-04-30] MEDS ORDERED: ACET325T9 PO (23:22)
[2019-05-01] MEDS: FAMOTIDINE 20 MG TABLET PO SCH (05:57)
[2019-05-01] MEDS: LEVOTHYROXINE 25 MCG TABLET. PO SCH (05:57)
[2019-05-01 06:17] VITALS: BP 162/83
[2019-05-01 07:37] LABS: ALBUMIN 3.7 g/dL (3.4-5.0); ALBUMIN/GLOBULIN RATIO 0.9 (1.0-1.7); CALCIUM 9.5 mg/dL (8.5-10.1); CREATININE 0.9 mg/dL (0.6-1.0); GFR 60.9; TOTAL BILIRUBIN 0.3 mg/dL (0.2-1.0); TOTAL PROTEIN 7.6 g/dL (6.4-8.2)
[2019-05-01 07:46] LABS: BASO # 0.1 x10^3/uL (0.0-0.2); BASO % 1 % (0-3); EOS # 0.7 x10^3/uL (0.0-0.7); EOS % 10 % (0-3); HEMATOCRIT 32.9 % (36.0-47.0); HEMOGLOBIN 10.4 g/dL (12.0-15.5); LYMPH % 28 % (24-48); MEAN CORPUSCULAR HEMOGLOBIN 24 pg (25-35); MEAN CORPUSCULAR HGB CONC 32 g/dL (31-37); MEAN CORPUSCULAR VOLUME 77 fL (79-100); MONO # 0.8 x10^3/uL (0.0-1.1); MONO % 11 % (0-9); NEUT # 3.6 x10^3uL (1.8-7.7); NEUT % 50 % (31-73); PLATELET COUNT 419 x10^3/uL (140-400); WHITE BLOOD COUNT 7.2 x10^3/uL (4.0-11.0)
[2019-05-01] MEDS: CHOLECALCIFEROL (VITAMIN D3) 1,000 UNIT TABLET PO SCH (08:37)
[2019-05-01] MEDS: MAGNESIUM OXIDE 400 MG TABLET PO SCH ×2 (08:37→19:56)
[2019-05-01] MEDS: ASPIRIN 81 MG TAB.CHEW PO SCH (08:37)
[2019-05-01] MEDS: ASCORBIC ACID 500 MG TABLET PO SCH (08:37)
[2019-05-01] MEDS: CETIRIZINE HCL 10 MG TABLET PO SCH (08:37)
[2019-05-01] MEDS: METOPROLOL TART IMMED RELEASE 25 MG TABLET PO SCH ×2 (08:38→19:56)
[2019-05-01] MEDS: rOPINIRole 1 MG TABLET. PO SCH ×2 (08:38→19:56)
[2019-05-01] MEDS: LACTOBACILLUS RHAMNOSUS GG 1 CAPSULE. PO SCH (08:38)
[2019-05-01] MEDS: VENLAFAXINE 75 MG TABLET. PO SCH (08:38)
[2019-05-01] MEDS: CEPHALEXIN 250 MG CAPSULE PO SCH ×3 (08:38→19:56)
[2019-05-01] MEDS: GABAPENTIN 300 MG CAPSULE. PO SCH ×3 (08:38→19:58)
[2019-05-01] MEDS: SUCRALFATE 1 GM TABLET. PO SCH ×2 (08:51→17:20)
[2019-05-01] MEDS: LIDOCAINE 5% TOPICAL OINTMENT 35GM TUBE. TP SCH ×2 (08:52→19:56)
[2019-05-01] MEDS ORDERED: SENNOSIDES 8.6 MG TABLET PO SCH (09:00)
[2019-05-01] MEDS ORDERED: NON FORMULARY ITEM (Menthol (Biofreeze) 1 APP) TP SCH (09:00)
[2019-05-01] MEDS ORDERED: ENOXAPARIN ** NOTE DOSE ** SYRINGE SQ SCH (09:00)
[2019-05-01] MEDS ORDERED: FLUTICASONE 50MCG/NASAL SPRAY 16GM BOTTLE. NS SCH (09:00)
[2019-05-01] MEDS: oxyCODONE IR 5 MG TABLET PO PRN ×3 (09:36→18:07)
[2019-05-01 12:30] VITALS: BP 148/85
[2019-05-01] MEDS: AMIODARONE HCL 200 MG TABLET PO SCH (12:31)
[2019-05-01 16:10] VITALS: BP 149/84
[2019-05-01] MEDS ORDERED: FLUTICASONE 50MCG/NASAL SPRAY 16GM BOTTLE. NS PRN (17:45)
--- NOTE | 2019-05-01 18:16 | RAD ---
Bilateral lower extremity venous ultrasound, : History: Evaluate for DVT, elevated d-dimer, recent fall Sonographic evaluation including grayscale, color flow and spectral Doppler analysis of the deep veins of the lower extremities was performed. The femoral and popliteal veins demonstrate normal compressibility and normal responses to distal augmentation maneuvers. Color imaging of those vessels shows no evidence of intraluminal clot. The visualized deep veins in both calves are patent. IMPRESSION: There is no sonographic evidence of deep vein thrombosis in either lower extremity. Electronically signed by: Jeffrey Storey MD (05/01/2019 6:13 PM) [facility]
[2019-05-01] MEDS: traZODone 50 MG TABLET. PO SCH (19:58)
[2019-05-01] MEDS: LATANOPROST 0.005% OPHTH SOLUTION 2.5ML BOTTLE. OU SCH (19:58)
[2019-05-01] MEDS: ATORVASTATIN CALCIUM 10 MG TABLET. PO SCH (19:58)
[2019-05-01] MEDS: ENOXAPARIN 40 MG/0.4 ML SYRINGE. SQ SCH (19:59)
[2019-05-01 23:09] LABS: HEMOGLOBIN A1C 6.4 % (4.8-5.6)
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
[2019-05-02] MEDS: oxyCODONE IR 5 MG TABLET PO PRN ×3 (04:05→20:17)
[2019-05-02] MEDS: FAMOTIDINE 20 MG TABLET PO SCH (05:53)
[2019-05-02] MEDS: LEVOTHYROXINE 25 MCG TABLET. PO SCH (05:53)
[2019-05-02 06:21] VITALS: BP 170/75
[2019-05-02] MEDS: MAGNESIUM OXIDE 400 MG TABLET PO SCH ×2 (08:52→20:15)
[2019-05-02] MEDS: METOPROLOL TART IMMED RELEASE 25 MG TABLET PO SCH ×2 (08:52→20:15)
[2019-05-02] MEDS: SUCRALFATE 1 GM TABLET. PO SCH ×2 (08:52→17:35)
[2019-05-02] MEDS: LACTOBACILLUS RHAMNOSUS GG 1 CAPSULE. PO SCH (08:52)
[2019-05-02] MEDS: CHOLECALCIFEROL (VITAMIN D3) 1,000 UNIT TABLET PO SCH (08:52)
[2019-05-02] MEDS: rOPINIRole 1 MG TABLET. PO SCH ×2 (08:52→20:15)
[2019-05-02] MEDS: ASPIRIN 81 MG TAB.CHEW PO SCH (08:53)
[2019-05-02] MEDS: CEPHALEXIN 250 MG CAPSULE PO SCH ×3 (08:53→20:15)
[2019-05-02] MEDS: ASCORBIC ACID 500 MG TABLET PO SCH (08:53)
[2019-05-02] MEDS: CETIRIZINE HCL 10 MG TABLET PO SCH (08:53)
[2019-05-02] MEDS: VENLAFAXINE 75 MG TABLET. PO SCH (08:53)
[2019-05-02] MEDS: LIDOCAINE 5% TOPICAL OINTMENT 35GM TUBE. TP SCH ×2 (08:54→20:18)
[2019-05-02] MEDS: POLYETHYLENE GLYCOL 3350 17 GM PACKET. PO SCH (08:56)
[2019-05-02] MEDS: GABAPENTIN 300 MG CAPSULE. PO SCH ×3 (08:58→20:17)
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
--- NOTE | 2019-05-02 10:15 | PDOC ---
Exam Note: Kt Note: Late entry for DOS 05/01/2019. Please also refer to the separate dictated note~for this date of service dictated separately.~Patient seen individually. Discussed the patient with Nursing staff reviewed the chart.~Reviewed interim history and current functioning. Reviewed vital signs,~Labs/ Radiology~and current medications noted below. Continue current treatment with the changes noted in the dictated addendum note Assessment: Vital Signs/I&O: Vital Signs Date Time Temp Pulse Resp B/P (MAP) Pulse Ox O2 Delivery O2 Flow Rate FiO2 05/02/19 08:52 67 170/75 05/02/19 06:21 98.6 16 94 Room Air I & O 05/01/19 05/01/19 05/02/19 14:59 22:59 06:59 Intake Total 480 ml 240 ml 240 ml Output Total 300 ml 750 ml Balance 180 ml 240 ml -510 ml Current Medications: Meds: Current Medications Medications (Trade) Dose Ordered Sig/Elias Route PRN Reason Start Time Stop Time Status Last Admin Dose Admin Enoxaparin Sodium (Lovenox 40mg Syringe) 40 mg Q24H SQ 05/01/19 21:00 05/01/19 19:59 Trazodone HCl (Desyrel) 50 mg QHS PO 05/01/19 21:00 05/01/19 19:58 Amiodarone HCl (Cordarone) 200 mg DAILYWLUN PO 05/01/19 12:00 05/01/19 12:31 Atorvastatin Calcium (Lipitor) 10 mg QHS PO 05/01/19 21:00 05/01/19 19:58 Latanoprost (Xalatan) 1 drop QHS OU 05/01/19 21:00 05/01/19 19:58 Polyethylene Glycol (miraLAX) 17 gm DAILY PO 05/02/19 09:00 05/02/19 08:56 I have reviewed the current psychotropics carefully including drug interactions. Risk benefit ratio favors no change other than as noted in my dictated progress note. Diagnosis: Problems: (1) Paranoid delusion (2) Anxiety disorder (3) Bipolar affective disorder, mixed (4) Impulse control disorder (5) Major depressive disorder, recurrent episode AIME ROYAL MD May 02, 2019 10:15
[2019-05-02] MEDS: AMIODARONE HCL 200 MG TABLET PO SCH (13:21)
[2019-05-02 15:56] VITALS: BP 137/80
[2019-05-02] MEDS: ATORVASTATIN CALCIUM 10 MG TABLET. PO SCH (20:15)
[2019-05-02] MEDS: risperiDONE 0.25 MG TABLET. PO SCH (20:15)
[2019-05-02] MEDS: traZODone 50 MG TABLET. PO SCH (20:15)
[2019-05-02] MEDS: LATANOPROST 0.005% OPHTH SOLUTION 2.5ML BOTTLE. OU SCH (20:17)
[2019-05-02] MEDS: ESTRADIOL 0.01% VAGINAL CREAM 42.5GM TUBE. VG SCH (20:18)
[2019-05-02] MEDS: ENOXAPARIN 40 MG/0.4 ML SYRINGE. SQ SCH (20:19)
--- NOTE | 2019-05-02 22:22 | PDOC ---
Exam Note: Kt Note: Please also refer to the separate dictated note~for this date of service dictated separately.~Patient seen individually. Discussed the patient with Nursing staff reviewed the chart.~Reviewed interim history and current functioning. Reviewed vital signs,~Labs/ Radiology~and current medications noted below. Continue current treatment with the changes noted in the dictated addendum note Assessment: Vital Signs/I&O: Vital Signs Date Time Temp Pulse Resp B/P (MAP) Pulse Ox O2 Delivery O2 Flow Rate FiO2 05/02/19 21:17 95 05/02/19 20:15 76 137/80 05/02/19 15:56 97.9 18 05/02/19 06:21 Room Air I & O 05/01/19 05/01/19 05/02/19 14:59 22:59 06:59 Intake Total 480 ml 240 ml 240 ml Output Total 300 ml 750 ml Balance 180 ml 240 ml -510 ml Current Medications: Meds: Current Medications Medications (Trade) Dose Ordered Sig/Elias Route PRN Reason Start Time Stop Time Status Last Admin Dose Admin Estradiol (Estrace) 1 coni QMWF@2100 VG 05/02/19 21:00 05/02/19 20:18 Polyethylene Glycol (miraLAX) 17 gm DAILY PO 05/02/19 09:00 05/02/19 08:56 Risperidone (RisperDAL) 0.25 mg QHS PO 05/02/19 21:00 05/02/19 20:15 I have reviewed the current psychotropics carefully including drug interactions. Risk benefit ratio favors no change other than as noted in my dictated progress note. Diagnosis: Problems: (1) Paranoid delusion (2) Anxiety disorder (3) Bipolar affective disorder, mixed (4) Impulse control disorder (5) Major depressive disorder, recurrent episode AIME ROYAL MD May 02, 2019 22:22
[2019-05-03] MEDS: oxyCODONE IR 5 MG TABLET PO PRN ×3 (05:12→22:24)
[2019-05-03] MEDS: LEVOTHYROXINE 25 MCG TABLET. PO SCH (05:12)
[2019-05-03] MEDS: FAMOTIDINE 20 MG TABLET PO SCH (05:12)
[2019-05-03] MEDS: ASPIRIN 81 MG TAB.CHEW PO SCH (07:41)
[2019-05-03] MEDS: SUCRALFATE 1 GM TABLET. PO SCH ×2 (07:41→15:06)
[2019-05-03] MEDS: VENLAFAXINE 75 MG TABLET. PO SCH (07:41)
[2019-05-03] MEDS: LACTOBACILLUS RHAMNOSUS GG 1 CAPSULE. PO SCH (07:41)
[2019-05-03] MEDS: CEPHALEXIN 250 MG CAPSULE PO SCH ×3 (07:41→20:13)
[2019-05-03] MEDS: POLYETHYLENE GLYCOL 3350 17 GM PACKET. PO SCH (07:42)
[2019-05-03] MEDS: MAGNESIUM OXIDE 400 MG TABLET PO SCH ×2 (07:42→20:13)
[2019-05-03] MEDS: METOPROLOL TART IMMED RELEASE 25 MG TABLET PO SCH ×2 (07:42→20:14)
[2019-05-03] MEDS: ASCORBIC ACID 500 MG TABLET PO SCH (07:43)
[2019-05-03] MEDS: rOPINIRole 1 MG TABLET. PO SCH ×2 (07:43→20:14)
[2019-05-03] MEDS: CETIRIZINE HCL 10 MG TABLET PO SCH (07:43)
[2019-05-03] MEDS: CHOLECALCIFEROL (VITAMIN D3) 1,000 UNIT TABLET PO SCH (07:43)
[2019-05-03] MEDS: GABAPENTIN 300 MG CAPSULE. PO SCH ×3 (07:43→20:13)
[2019-05-03] MEDS: LIDOCAINE 5% TOPICAL OINTMENT 35GM TUBE. TP SCH ×2 (09:32→20:20)
[2019-05-03 12:35] VITALS: BP 147/80
[2019-05-03] MEDS: AMIODARONE HCL 200 MG TABLET PO SCH (12:39)
[2019-05-03 15:40] VITALS: BP 126/73
[2019-05-03] MEDS ORDERED: traZODone 50 MG TABLET. PO PRN (19:15)
[2019-05-03] MEDS ORDERED: ONDANSETRON ODT 4 MG TAB.RAPDIS PO PRN (19:45)
[2019-05-03] MEDS: ATORVASTATIN CALCIUM 10 MG TABLET. PO SCH (20:13)
[2019-05-03] MEDS: traZODone 50 MG TABLET. PO SCH (20:13)
[2019-05-03] MEDS: risperiDONE 0.25 MG TABLET. PO SCH (20:14)
[2019-05-03] MEDS: ENOXAPARIN 40 MG/0.4 ML SYRINGE. SQ SCH (20:20)
[2019-05-03] MEDS: LATANOPROST 0.005% OPHTH SOLUTION 2.5ML BOTTLE. OU SCH (20:20)
--- NOTE | 2019-05-03 22:46 | PDOC ---
Exam Note: Kt Note: Please also refer to the separate dictated note~for this date of service dictated separately.~Patient seen individually. Discussed the patient with Nursing staff reviewed the chart.~Reviewed interim history and current functioning. Reviewed vital signs,~Labs/ Radiology~and current medications noted below. Continue current treatment with the changes noted in the dictated addendum note Assessment: Vital Signs/I&O: Vital Signs Date Time Temp Pulse Resp B/P (MAP) Pulse Ox O2 Delivery O2 Flow Rate FiO2 05/03/19 22:24 94 05/03/19 20:14 76 126/73 05/03/19 15:40 97.2 17 Room Air I & O 05/02/19 05/02/19 05/03/19 14:59 22:59 06:59 Intake Total 480 ml 600 ml Output Total 300 ml Balance 480 ml 300 ml Current Medications: Meds: Current Medications Medications (Trade) Dose Ordered Sig/Elias Route PRN Reason Start Time Stop Time Status Last Admin Dose Admin Sucralfate (Carafate) 1 gm 0700,1600 PO 05/03/19 16:00 05/03/19 15:06 Ondansetron HCl (Zofran Odt) 4 mg PRN Q8HRS PRN PO NAUSEA/VOMITING 05/03/19 19:45 05/03/19 19:44 I have reviewed the current psychotropics carefully including drug interactions. Risk benefit ratio favors no change other than as noted in my dictated progress note. Diagnosis: Problems: (1) Paranoid delusion (2) Anxiety disorder (3) Bipolar affective disorder, mixed (4) Impulse control disorder (5) Major depressive disorder, recurrent episode AIME ROYAL MD May 03, 2019 22:46
[2019-05-04 05:52] VITALS: BP 127/72
[2019-05-04] MEDS: oxyCODONE IR 5 MG TABLET PO PRN (06:03)
[2019-05-04] MEDS: SUCRALFATE 1 GM TABLET. PO SCH ×2 (06:03→16:51)
[2019-05-04] MEDS: FAMOTIDINE 20 MG TABLET PO SCH (06:04)
[2019-05-04] MEDS: LEVOTHYROXINE 25 MCG TABLET. PO SCH (06:04)
[2019-05-04] MEDS: ASPIRIN 81 MG TAB.CHEW PO SCH (08:23)
[2019-05-04] MEDS: METOPROLOL TART IMMED RELEASE 25 MG TABLET PO SCH ×2 (08:23→20:12)
[2019-05-04] MEDS: POLYETHYLENE GLYCOL 3350 17 GM PACKET. PO SCH (08:23)
[2019-05-04] MEDS: MAGNESIUM OXIDE 400 MG TABLET PO SCH ×2 (08:23→20:12)
[2019-05-04] MEDS: VENLAFAXINE 75 MG TABLET. PO SCH (08:23)
[2019-05-04] MEDS: CETIRIZINE HCL 10 MG TABLET PO SCH (08:23)
[2019-05-04] MEDS: CHOLECALCIFEROL (VITAMIN D3) 1,000 UNIT TABLET PO SCH (08:24)
[2019-05-04] MEDS: ASCORBIC ACID 500 MG TABLET PO SCH (08:24)
[2019-05-04] MEDS: rOPINIRole 1 MG TABLET. PO SCH ×2 (08:24→20:11)
[2019-05-04] MEDS: CEPHALEXIN 250 MG CAPSULE PO SCH ×3 (08:24→20:13)
[2019-05-04] MEDS: LACTOBACILLUS RHAMNOSUS GG 1 CAPSULE. PO SCH (08:24)
[2019-05-04] MEDS: LIDOCAINE 5% TOPICAL OINTMENT 35GM TUBE. TP SCH ×2 (08:24→20:43)
[2019-05-04] MEDS: GABAPENTIN 300 MG CAPSULE. PO SCH ×3 (08:27→20:12)
[2019-05-04] MEDS: AMIODARONE HCL 200 MG TABLET PO SCH (11:54)
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
[2019-05-04 16:03] VITALS: BP 108/64
[2019-05-04] MEDS: risperiDONE 0.25 MG TABLET. PO SCH (20:11)
[2019-05-04] MEDS: ENOXAPARIN 40 MG/0.4 ML SYRINGE. SQ SCH (20:13)
[2019-05-04] MEDS: traZODone 50 MG TABLET. PO SCH (20:13)
[2019-05-04] MEDS: ATORVASTATIN CALCIUM 10 MG TABLET. PO SCH (20:13)
[2019-05-04] MEDS: LATANOPROST 0.005% OPHTH SOLUTION 2.5ML BOTTLE. OU SCH (20:43)
--- NOTE | 2019-05-04 22:19 | PDOC ---
Exam Note: Kt Note: Please also refer to the separate dictated note~for this date of service dictated separately.~Patient seen individually. Discussed the patient with Nursing staff reviewed the chart.~Reviewed interim history and current functioning. Reviewed vital signs,~Labs/ Radiology~and current medications noted below. Continue current treatment with the changes noted in the dictated addendum note Assessment: Vital Signs/I&O: Vital Signs Date Time Temp Pulse Resp B/P (MAP) Pulse Ox O2 Delivery O2 Flow Rate FiO2 05/04/19 20:12 66 136/74 05/04/19 16:03 97.1 16 90 05/04/19 05:52 Room Air I & O 05/03/19 05/03/19 05/04/19 14:59 22:59 06:59 Intake Total 480 ml 240 ml 120 ml Output Total 200 ml 400 ml Balance 280 ml 240 ml -280 ml Current Medications: I have reviewed the current psychotropics carefully including drug interactions. Risk benefit ratio favors no change other than as noted in my dictated progress note. Diagnosis: Problems: (1) Paranoid delusion (2) Anxiety disorder (3) Bipolar affective disorder, mixed (4) Impulse control disorder (5) Major depressive disorder, recurrent episode AIME ROYAL MD May 04, 2019 22:19
[2019-05-05 06:01] VITALS: BP 166/84
[2019-05-05] MEDS: LEVOTHYROXINE 25 MCG TABLET. PO SCH (06:30)
[2019-05-05] MEDS: FAMOTIDINE 20 MG TABLET PO SCH (06:30)
[2019-05-05] MEDS: SUCRALFATE 1 GM TABLET. PO SCH ×2 (06:30→16:56)
[2019-05-05] MEDS: oxyCODONE IR 5 MG TABLET PO PRN ×2 (06:37→10:56)
[2019-05-05] MEDS: MAGNESIUM OXIDE 400 MG TABLET PO SCH ×2 (07:40→19:43)
[2019-05-05] MEDS: CEPHALEXIN 250 MG CAPSULE PO SCH ×3 (07:40→19:43)
[2019-05-05] MEDS: VENLAFAXINE 75 MG TABLET. PO SCH (07:42)
[2019-05-05] MEDS: METOPROLOL TART IMMED RELEASE 25 MG TABLET PO SCH ×2 (07:42→19:44)
[2019-05-05] MEDS: ASPIRIN 81 MG TAB.CHEW PO SCH (07:42)
[2019-05-05] MEDS: ASCORBIC ACID 500 MG TABLET PO SCH (07:43)
[2019-05-05] MEDS: LACTOBACILLUS RHAMNOSUS GG 1 CAPSULE. PO SCH (07:43)
[2019-05-05] MEDS: CETIRIZINE HCL 10 MG TABLET PO SCH (07:43)
[2019-05-05] MEDS: POLYETHYLENE GLYCOL 3350 17 GM PACKET. PO SCH (07:43)
[2019-05-05] MEDS: rOPINIRole 1 MG TABLET. PO SCH ×2 (07:43→19:44)
[2019-05-05] MEDS: CHOLECALCIFEROL (VITAMIN D3) 1,000 UNIT TABLET PO SCH (07:43)
[2019-05-05] MEDS: GABAPENTIN 300 MG CAPSULE. PO SCH ×3 (07:47→19:51)
[2019-05-05] MEDS: LIDOCAINE 5% TOPICAL OINTMENT 35GM TUBE. TP SCH ×2 (07:47→19:51)
[2019-05-05] MEDS: AMIODARONE HCL 200 MG TABLET PO SCH (12:09)
[2019-05-05 16:09] VITALS: BP 112/68
[2019-05-05] MEDS: ATORVASTATIN CALCIUM 10 MG TABLET. PO SCH (19:43)
[2019-05-05] MEDS: ENOXAPARIN 40 MG/0.4 ML SYRINGE. SQ SCH (19:44)
[2019-05-05] MEDS: risperiDONE 0.25 MG TABLET. PO SCH (19:50)
[2019-05-05] MEDS: LATANOPROST 0.005% OPHTH SOLUTION 2.5ML BOTTLE. OU SCH (19:50)
[2019-05-05] MEDS: traZODone 50 MG TABLET. PO SCH (19:50)
[2019-05-05] MEDS: ESTRADIOL 0.01% VAGINAL CREAM 42.5GM TUBE. VG SCH (19:51)
--- NOTE | 2019-05-05 22:26 | PDOC ---
Exam Note: Kt Note: Please also refer to the separate dictated note~for this date of service dictated separately.~Patient seen individually. Discussed the patient with Nursing staff reviewed the chart.~Reviewed interim history and current functioning. Reviewed vital signs,~Labs/ Radiology~and current medications noted below. Continue current treatment with the changes noted in the dictated addendum note Assessment: Vital Signs/I&O: Vital Signs Date Time Temp Pulse Resp B/P (MAP) Pulse Ox O2 Delivery O2 Flow Rate FiO2 05/05/19 19:44 67 112/68 05/05/19 16:09 98.0 18 95 05/05/19 10:56 Room Air I & O 05/04/19 05/04/19 05/05/19 15:00 23:00 07:00 Intake Total 840 ml 480 ml Output Total 100 ml 1500 ml Balance 840 ml 380 ml -1500 ml Current Medications: Meds: Current Medications Medications (Trade) Dose Ordered Sig/Elias Route PRN Reason Start Time Stop Time Status Last Admin Dose Admin Risperidone (RisperDAL) 0.5 mg HS PO 05/05/19 21:00 05/05/19 19:50 I have reviewed the current psychotropics carefully including drug interactions. Risk benefit ratio favors no change other than as noted in my dictated progress note. Diagnosis: Problems: (1) Paranoid delusion (2) Anxiety disorder (3) Bipolar affective disorder, mixed (4) Impulse control disorder (5) Major depressive disorder, recurrent episode AIME ROYAL MD May 05, 2019 22:26
[2019-05-06] MEDS: FAMOTIDINE 20 MG TABLET PO SCH (05:36)
[2019-05-06] MEDS: LEVOTHYROXINE 25 MCG TABLET. PO SCH (05:36)
[2019-05-06] MEDS: SUCRALFATE 1 GM TABLET. PO SCH ×2 (05:36→16:39)
[2019-05-06 06:27] VITALS: BP 160/90
[2019-05-06] MEDS: METOPROLOL TART IMMED RELEASE 25 MG TABLET PO SCH ×2 (08:50→19:57)
[2019-05-06] MEDS: LACTOBACILLUS RHAMNOSUS GG 1 CAPSULE. PO SCH (08:50)
[2019-05-06] MEDS: CEPHALEXIN 250 MG CAPSULE PO SCH ×3 (08:50→19:57)
[2019-05-06] MEDS: rOPINIRole 1 MG TABLET. PO SCH ×2 (08:50→19:57)
[2019-05-06] MEDS: MAGNESIUM OXIDE 400 MG TABLET PO SCH ×2 (08:50→19:58)
[2019-05-06] MEDS: CHOLECALCIFEROL (VITAMIN D3) 1,000 UNIT TABLET PO SCH (08:50)
[2019-05-06] MEDS: ASCORBIC ACID 500 MG TABLET PO SCH (08:50)
[2019-05-06] MEDS: CETIRIZINE HCL 10 MG TABLET PO SCH (08:50)
[2019-05-06] MEDS: GABAPENTIN 300 MG CAPSULE. PO SCH ×3 (08:50→20:01)
[2019-05-06] MEDS: VENLAFAXINE 75 MG TABLET. PO SCH (08:50)
[2019-05-06] MEDS: ASPIRIN 81 MG TAB.CHEW PO SCH (08:50)
[2019-05-06] MEDS: LIDOCAINE 5% TOPICAL OINTMENT 35GM TUBE. TP SCH ×2 (08:51→20:01)
[2019-05-06] MEDS: POLYETHYLENE GLYCOL 3350 17 GM PACKET. PO SCH (08:51)
[2019-05-06] MEDS: AMIODARONE HCL 200 MG TABLET PO SCH (11:55)
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
[2019-05-06 16:14] VITALS: BP 160/83
[2019-05-06] MEDS ORDERED: BISACODYL 10 MG SUPP.RECT PR PRN (19:30)
[2019-05-06] MEDS: LATANOPROST 0.005% OPHTH SOLUTION 2.5ML BOTTLE. OU SCH (19:56)
[2019-05-06] MEDS: risperiDONE 0.25 MG TABLET. PO SCH (19:57)
[2019-05-06] MEDS: ATORVASTATIN CALCIUM 10 MG TABLET. PO SCH (19:57)
[2019-05-06] MEDS: ENOXAPARIN 40 MG/0.4 ML SYRINGE. SQ SCH (19:57)
[2019-05-06] MEDS: traZODone 50 MG TABLET. PO SCH (19:58)
--- NOTE | 2019-05-06 22:15 | PDOC ---
Exam Note: Kt Note: Please also refer to the separate dictated note~for this date of service dictated separately.~Patient seen individually. Discussed the patient with Nursing staff reviewed the chart.~Reviewed interim history and current functioning. Reviewed vital signs,~Labs/ Radiology~and current medications noted below. Continue current treatment with the changes noted in the dictated addendum note Assessment: Vital Signs/I&O: Vital Signs Date Time Temp Pulse Resp B/P (MAP) Pulse Ox O2 Delivery O2 Flow Rate FiO2 05/06/19 19:57 76 160/83 05/06/19 16:14 98.6 18 96 05/05/19 10:56 Room Air I & O 05/05/19 05/05/19 05/06/19 14:59 22:59 06:59 Intake Total 600 ml 360 ml 240 ml Output Total 225 ml Balance 375 ml 360 ml 240 ml Current Medications: I have reviewed the current psychotropics carefully including drug interactions. Risk benefit ratio favors no change other than as noted in my dictated progress note. Diagnosis: Problems: (1) Paranoid delusion (2) Anxiety disorder (3) Bipolar affective disorder, mixed (4) Impulse control disorder (5) Major depressive disorder, recurrent episode AIME ROYAL MD May 06, 2019 22:15
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
[2019-05-07] MEDS: FAMOTIDINE 20 MG TABLET PO SCH (05:04)
[2019-05-07] MEDS: LEVOTHYROXINE 25 MCG TABLET. PO SCH (05:04)
[2019-05-07] MEDS: SUCRALFATE 1 GM TABLET. PO SCH ×2 (05:04→14:29)
[2019-05-07] MEDS: oxyCODONE IR 5 MG TABLET PO PRN ×4 (05:13→21:37)
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
[2019-05-07 06:37] VITALS: BP 141/91
[2019-05-07] MEDS: POLYETHYLENE GLYCOL 3350 17 GM PACKET. PO SCH (08:28)
[2019-05-07] MEDS: CETIRIZINE HCL 10 MG TABLET PO SCH (08:28)
[2019-05-07] MEDS: CEPHALEXIN 250 MG CAPSULE PO SCH ×2 (08:28→14:28)
[2019-05-07] MEDS: rOPINIRole 1 MG TABLET. PO SCH ×2 (08:28→19:58)
[2019-05-07] MEDS: ASPIRIN 81 MG TAB.CHEW PO SCH (08:29)
[2019-05-07] MEDS: METOPROLOL TART IMMED RELEASE 25 MG TABLET PO SCH ×2 (08:29→19:58)
[2019-05-07] MEDS: CHOLECALCIFEROL (VITAMIN D3) 1,000 UNIT TABLET PO SCH (08:29)
[2019-05-07] MEDS: LACTOBACILLUS RHAMNOSUS GG 1 CAPSULE. PO SCH (08:29)
[2019-05-07] MEDS: ASCORBIC ACID 500 MG TABLET PO SCH (08:29)
[2019-05-07] MEDS: MAGNESIUM OXIDE 400 MG TABLET PO SCH ×2 (08:30→19:58)
[2019-05-07] MEDS: GABAPENTIN 300 MG CAPSULE. PO SCH ×3 (08:35→19:58)
[2019-05-07] MEDS: LIDOCAINE 5% TOPICAL OINTMENT 35GM TUBE. TP SCH ×2 (08:36→19:58)
[2019-05-07] MEDS: AMIODARONE HCL 200 MG TABLET PO SCH (12:06)
[2019-05-07 15:50] VITALS: BP 110/65
[2019-05-07] MEDS: ESTRADIOL 0.01% VAGINAL CREAM 42.5GM TUBE. VG SCH (19:58)
[2019-05-07] MEDS: risperiDONE 0.25 MG TABLET. PO SCH (19:59)
[2019-05-07] MEDS: traZODone 50 MG TABLET. PO SCH (19:59)
[2019-05-07] MEDS: ATORVASTATIN CALCIUM 10 MG TABLET. PO SCH (19:59)
[2019-05-07] MEDS: ENOXAPARIN 40 MG/0.4 ML SYRINGE. SQ SCH (20:00)
[2019-05-07] MEDS: LATANOPROST 0.005% OPHTH SOLUTION 2.5ML BOTTLE. OU SCH (20:00)
--- NOTE | 2019-05-07 22:17 | PDOC ---
Exam Note: Kt Note: Please also refer to the separate dictated note~for this date of service dictated separately.~Patient seen individually. Discussed the patient with Nursing staff reviewed the chart.~Reviewed interim history and current functioning. Reviewed vital signs,~Labs/ Radiology~and current medications noted below. Continue current treatment with the changes noted in the dictated addendum note Assessment: Vital Signs/I&O: Vital Signs Date Time Temp Pulse Resp B/P (MAP) Pulse Ox O2 Delivery O2 Flow Rate FiO2 05/07/19 21:37 94 05/07/19 19:58 64 110/65 05/07/19 16:10 18 05/07/19 15:50 98.6 05/07/19 14:43 Room Air I & O 05/06/19 05/06/19 05/07/19 14:59 22:59 06:59 Intake Total 720 ml 240 ml 240 ml Output Total 3000 ml Balance 720 ml 240 ml -2760 ml Current Medications: Meds: Current Medications Medications (Trade) Dose Ordered Sig/Elias Route PRN Reason Start Time Stop Time Status Last Admin Dose Admin Fluvoxamine Maleate (Luvox) 25 mg DAILY PO 05/07/19 09:00 05/10/19 08:59 05/07/19 08:35 I have reviewed the current psychotropics carefully including drug interactions. Risk benefit ratio favors no change other than as noted in my dictated progress note. Diagnosis: Problems: (1) Paranoid delusion (2) Anxiety disorder (3) Bipolar affective disorder, mixed (4) Impulse control disorder (5) Major depressive disorder, recurrent episode AIME ROYAL MD May 07, 2019 22:17
--- NOTE | 2019-05-08 00:14 | PN ---
DATE: 05/06/2019 PSYCHIATRIC PROGRESS NOTE This late entry 05/06/2019 covers elements not covered in my initial note. SUBJECTIVE: I met with the patient in the evening of 05/06/2019. The patient has been quite obsessed about her bowels and constipation. She received milk of mag and is wanting something else, was needing gloves to manually extract herself. She was tearful, crying in the evening, initially refused milk of mag, slept 7-1/2 hours previous night. REVIEW OF SYSTEMS: Positive for constipation, impaired ambulation, in wheelchair. No CV, , pulmonary, eye system symptoms on review. MENTAL STATUS EXAM: Oriented to herself and situation. Speech is coherent, has some latency. Abstraction fair, computation impaired, language function intact, attention span short. Mood and affect withdrawn. LABORATORY DATA: Reviewed. IMPRESSION: Unchanged from initial note. PLAN: We will use Dulcolax suppository p.r.n. for constipation, and given her OCD symptoms, change the Effexor to Luvox 25 mg daily for 3 days, then 50 mg a day. Rest unchanged for now. AIME ROYAL MD DR: ALLAN/luiz JOB#: [id number] / [id number]
[2019-05-08] MEDS: LEVOTHYROXINE 25 MCG TABLET. PO SCH (05:44)
[2019-05-08] MEDS: FAMOTIDINE 20 MG TABLET PO SCH (05:44)
[2019-05-08] MEDS: oxyCODONE IR 5 MG TABLET PO PRN ×2 (05:44→10:06)
[2019-05-08] MEDS: SUCRALFATE 1 GM TABLET. PO SCH ×2 (05:44→15:08)
[2019-05-08 06:13] VITALS: BP 118/75
[2019-05-08] MEDS: LIDOCAINE 5% TOPICAL OINTMENT 35GM TUBE. TP SCH ×3 (08:18→19:13)
[2019-05-08] MEDS: LACTOBACILLUS RHAMNOSUS GG 1 CAPSULE. PO SCH (08:18)
[2019-05-08] MEDS: ASCORBIC ACID 500 MG TABLET PO SCH (08:19)
[2019-05-08] MEDS: METOPROLOL TART IMMED RELEASE 25 MG TABLET PO SCH ×2 (08:19→19:14)
[2019-05-08] MEDS: rOPINIRole 1 MG TABLET. PO SCH ×2 (08:19→19:13)
[2019-05-08] MEDS: MAGNESIUM OXIDE 400 MG TABLET PO SCH ×2 (08:19→19:13)
[2019-05-08] MEDS: POLYETHYLENE GLYCOL 3350 17 GM PACKET. PO SCH (08:19)
[2019-05-08] MEDS: CHOLECALCIFEROL (VITAMIN D3) 1,000 UNIT TABLET PO SCH (08:20)
[2019-05-08] MEDS: CETIRIZINE HCL 10 MG TABLET PO SCH (08:20)
[2019-05-08] MEDS: ASPIRIN 81 MG TAB.CHEW PO SCH (08:20)
[2019-05-08] MEDS: GABAPENTIN 300 MG CAPSULE. PO SCH ×3 (08:28→19:13)
[2019-05-08 09:33] LABS: BASO # 0.1 x10^3/uL (0.0-0.2); BASO % 1 % (0-3); EOS # 0.9 x10^3/uL (0.0-0.7); EOS % 15 % (0-3); HEMATOCRIT 29.7 % (36.0-47.0); HEMOGLOBIN 8.9 g/dL (12.0-15.5); LYMPH # 1.7 x10^3/uL (1.0-4.8); LYMPH % 29 % (24-48); MEAN CORPUSCULAR HEMOGLOBIN 23 pg (25-35); MEAN CORPUSCULAR HGB CONC 30 g/dL (31-37); MEAN CORPUSCULAR VOLUME 77 fL (79-100); MONO # 0.6 x10^3/uL (0.0-1.1); MONO % 11 % (0-9); NEUT # 2.6 x10^3uL (1.8-7.7); NEUT % 45 % (31-73); PLATELET COUNT 302 x10^3/uL (140-400); RED BLOOD COUNT 3.85 x10^6/uL (3.50-5.40); RED CELL DISTRIBUTION WIDTH 19.8 % (11.5-14.5); WHITE BLOOD COUNT 5.9 x10^3/uL (4.0-11.0)
[2019-05-08 09:43] LABS: ALBUMIN 3.2 g/dL (3.4-5.0); ALBUMIN/GLOBULIN RATIO 0.9 (1.0-1.7); CALCIUM 8.9 mg/dL (8.5-10.1); CREATININE 1.2 mg/dL (0.6-1.0); GFR 43.7; POTASSIUM 4.4 mmol/L (3.5-5.1); TOTAL BILIRUBIN 0.2 mg/dL (0.2-1.0); TOTAL PROTEIN 6.7 g/dL (6.4-8.2)
[2019-05-08] MEDS: AMIODARONE HCL 200 MG TABLET PO SCH (12:19)
[2019-05-08 16:21] VITALS: BP 118/57
[2019-05-08] MEDS: risperiDONE 0.25 MG TABLET. PO SCH (19:13)
[2019-05-08] MEDS: ATORVASTATIN CALCIUM 10 MG TABLET. PO SCH (19:14)
[2019-05-08] MEDS: LATANOPROST 0.005% OPHTH SOLUTION 2.5ML BOTTLE. OU SCH (19:16)
[2019-05-08] MEDS: traZODone 50 MG TABLET. PO SCH (19:16)
[2019-05-08] MEDS: ENOXAPARIN 40 MG/0.4 ML SYRINGE. SQ SCH (19:16)
--- NOTE | 2019-05-08 22:26 | PDOC ---
Exam Note: Kt Note: Please also refer to the separate dictated note~for this date of service dictated separately.~Patient seen individually. Discussed the patient with Nursing staff reviewed the chart.~Reviewed interim history and current functioning. Reviewed vital signs,~Labs/ Radiology~and current medications noted below. Continue current treatment with the changes noted in the dictated addendum note Assessment: Vital Signs/I&O: Vital Signs Date Time Temp Pulse Resp B/P (MAP) Pulse Ox O2 Delivery O2 Flow Rate FiO2 05/08/19 19:14 66 118/57 05/08/19 16:21 97.9 16 98 Room Air I & O 05/07/19 05/07/19 05/08/19 15:00 23:00 07:00 Intake Total 480 ml 360 ml Output Total 200 ml Balance 480 ml 360 ml -200 ml Labs: Laboratory Tests Test 05/08/19 09:13 White Blood Count 5.9 x10^3/uL (4.0-11.0) Red Blood Count 3.85 x10^6/uL (3.50-5.40) Hemoglobin 8.9 g/dL (12.0-15.5) L Hematocrit 29.7 % (36.0-47.0) L Mean Corpuscular Volume 77 fL (79-100) L Mean Corpuscular Hemoglobin 23 pg (25-35) L Mean Corpuscular Hemoglobin Concent 30 g/dL (31-37) L Red Cell Distribution Width 19.8 % (11.5-14.5) H Platelet Count 302 x10^3/uL (140-400) Neutrophils (%) (Auto) 45 % (31-73) Lymphocytes (%) (Auto) 29 % (24-48) Monocytes (%) (Auto) 11 % (0-9) H Eosinophils (%) (Auto) 15 % (0-3) H Basophils (%) (Auto) 1 % (0-3) Neutrophils # (Auto) 2.6 x10^3uL (1.8-7.7) Lymphocytes # (Auto) 1.7 x10^3/uL (1.0-4.8) Monocytes # (Auto) 0.6 x10^3/uL (0.0-1.1) Eosinophils # (Auto) 0.9 x10^3/uL (0.0-0.7) H Basophils # (Auto) 0.1 x10^3/uL (0.0-0.2) Sodium Level 137 mmol/L (136-145) Potassium Level 4.4 mmol/L (3.5-5.1) Chloride Level 100 mmol/L (98-107) Carbon Dioxide Level 31 mmol/L (21-32) Anion Gap 6 (6-14) Blood Urea Nitrogen 29 mg/dL (7-20) H Creatinine 1.2 mg/dL (0.6-1.0) H Estimated GFR (Cockcroft-Gault) 43.7 BUN/Creatinine Ratio 24 (6-20) H Glucose Level 156 mg/dL (70-99) H Calcium Level 8.9 mg/dL (8.5-10.1) Total Bilirubin 0.2 mg/dL (0.2-1.0) Aspartate Amino Transferase (AST) 26 U/L (15-37) Alanine Aminotransferase (ALT) 31 U/L (14-59) Alkaline Phosphatase 92 U/L (46-116) Total Protein 6.7 g/dL (6.4-8.2) Albumin 3.2 g/dL (3.4-5.0) L Albumin/Globulin Ratio 0.9 (1.0-1.7) L Current Medications: I have reviewed the current psychotropics carefully including drug interactions. Risk benefit ratio favors no change other than as noted in my dictated progress note. Diagnosis: Problems: (1) Paranoid delusion (2) Anxiety disorder (3) Bipolar affective disorder, mixed (4) Impulse control disorder (5) Major depressive disorder, recurrent episode AIME ROYAL MD May 08, 2019 22:26
[2019-05-09] MEDS: oxyCODONE IR 5 MG TABLET PO PRN ×2 (05:35→10:29)
[2019-05-09] MEDS: SUCRALFATE 1 GM TABLET. PO SCH ×2 (05:35→15:00)
[2019-05-09] MEDS: FAMOTIDINE 20 MG TABLET PO SCH (05:35)
[2019-05-09] MEDS: LEVOTHYROXINE 25 MCG TABLET. PO SCH (05:35)
[2019-05-09 06:22] VITALS: BP 143/77
[2019-05-09] MEDS: ASPIRIN 81 MG TAB.CHEW PO SCH (08:25)
[2019-05-09] MEDS: MAGNESIUM OXIDE 400 MG TABLET PO SCH ×2 (09:00→20:36)
[2019-05-09] MEDS: rOPINIRole 1 MG TABLET. PO SCH ×2 (09:00→20:36)
[2019-05-09] MEDS: POLYETHYLENE GLYCOL 3350 17 GM PACKET. PO SCH (09:00)
[2019-05-09] MEDS: LIDOCAINE 5% TOPICAL OINTMENT 35GM TUBE. TP SCH ×2 (09:00→20:37)
[2019-05-09] MEDS: METOPROLOL TART IMMED RELEASE 25 MG TABLET PO SCH ×2 (09:00→20:37)
[2019-05-09] MEDS: CHOLECALCIFEROL (VITAMIN D3) 1,000 UNIT TABLET PO SCH (09:00)
[2019-05-09] MEDS: LACTOBACILLUS RHAMNOSUS GG 1 CAPSULE. PO SCH (09:00)
[2019-05-09] MEDS: ASCORBIC ACID 500 MG TABLET PO SCH (09:00)
[2019-05-09] MEDS: CETIRIZINE HCL 10 MG TABLET PO SCH (09:00)
[2019-05-09] MEDS: GABAPENTIN 300 MG CAPSULE. PO SCH ×3 (10:40→20:36)
[2019-05-09] MEDS: AMIODARONE HCL 200 MG TABLET PO SCH (12:03)
[2019-05-09 16:26] VITALS: BP 117/64
[2019-05-09] MEDS: traZODone 50 MG TABLET. PO SCH (20:36)
[2019-05-09] MEDS: LATANOPROST 0.005% OPHTH SOLUTION 2.5ML BOTTLE. OU SCH (20:36)
[2019-05-09] MEDS: ATORVASTATIN CALCIUM 10 MG TABLET. PO SCH (20:36)
[2019-05-09] MEDS: risperiDONE 0.25 MG TABLET. PO SCH (20:36)
[2019-05-09] MEDS: ESTRADIOL 0.01% VAGINAL CREAM 42.5GM TUBE. VG SCH (20:37)
[2019-05-09] MEDS: ENOXAPARIN 40 MG/0.4 ML SYRINGE. SQ SCH (21:36)
--- NOTE | 2019-05-09 22:23 | PDOC ---
Exam Note: Kt Note: Please also refer to the separate dictated note~for this date of service dictated separately.~Patient seen individually. Discussed the patient with Nursing staff reviewed the chart.~Reviewed interim history and current functioning. Reviewed vital signs,~Labs/ Radiology~and current medications noted below. Continue current treatment with the changes noted in the dictated addendum note Assessment: Vital Signs/I&O: Vital Signs Date Time Temp Pulse Resp B/P (MAP) Pulse Ox O2 Delivery O2 Flow Rate FiO2 05/09/19 20:37 70 131/82 05/09/19 16:26 97.1 20 94 05/09/19 11:29 Room Air I & O 05/08/19 05/08/19 05/09/19 14:59 22:59 06:59 Intake Total 240 ml 240 ml 120 ml Output Total 400 ml 1000 ml Balance 240 ml -160 ml -880 ml Current Medications: I have reviewed the current psychotropics carefully including drug interactions. Risk benefit ratio favors no change other than as noted in my dictated progress note. Diagnosis: Problems: (1) Anxiety disorder (2) Bipolar affective disorder, mixed (3) Impulse control disorder (4) Major depressive disorder, recurrent episode (5) Paranoid delusion AIME ROYAL MD May 09, 2019 22:23
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
[2019-05-10] MEDS: FAMOTIDINE 20 MG TABLET PO SCH (06:09)
[2019-05-10] MEDS: LEVOTHYROXINE 25 MCG TABLET. PO SCH (06:09)
[2019-05-10] MEDS: SUCRALFATE 1 GM TABLET. PO SCH ×2 (06:09→17:45)
[2019-05-10 06:17] VITALS: BP 153/74
[2019-05-10] MEDS: CHOLECALCIFEROL (VITAMIN D3) 1,000 UNIT TABLET PO SCH (09:13)
[2019-05-10] MEDS: CETIRIZINE HCL 10 MG TABLET PO SCH (09:13)
[2019-05-10] MEDS: rOPINIRole 1 MG TABLET. PO SCH ×2 (09:13→19:52)
[2019-05-10] MEDS: GABAPENTIN 300 MG CAPSULE. PO SCH ×3 (09:14→19:52)
[2019-05-10] MEDS: METOPROLOL TART IMMED RELEASE 25 MG TABLET PO SCH ×2 (09:14→19:51)
[2019-05-10] MEDS: MAGNESIUM OXIDE 400 MG TABLET PO SCH ×2 (09:14→19:52)
[2019-05-10] MEDS: ASPIRIN 81 MG TAB.CHEW PO SCH (09:14)
[2019-05-10] MEDS: LACTOBACILLUS RHAMNOSUS GG 1 CAPSULE. PO SCH (09:14)
[2019-05-10] MEDS: POLYETHYLENE GLYCOL 3350 17 GM PACKET. PO SCH (09:15)
[2019-05-10] MEDS: LIDOCAINE 5% TOPICAL OINTMENT 35GM TUBE. TP SCH ×2 (09:16→19:58)
[2019-05-10] MEDS: ASCORBIC ACID 500 MG TABLET PO SCH (09:17)
[2019-05-10] MEDS: oxyCODONE IR 5 MG TABLET PO PRN ×2 (10:31→20:00)
[2019-05-10] MEDS: AMIODARONE HCL 200 MG TABLET PO SCH (12:31)
[2019-05-10 15:57] VITALS: BP 137/75
[2019-05-10] MEDS: risperiDONE 0.25 MG TABLET. PO SCH (19:51)
[2019-05-10] MEDS: ATORVASTATIN CALCIUM 10 MG TABLET. PO SCH (19:51)
[2019-05-10] MEDS: traZODone 50 MG TABLET. PO SCH (19:53)
[2019-05-10] MEDS: LATANOPROST 0.005% OPHTH SOLUTION 2.5ML BOTTLE. OU SCH (19:57)
[2019-05-10] MEDS: ENOXAPARIN 40 MG/0.4 ML SYRINGE. SQ SCH (19:58)
--- NOTE | 2019-05-10 23:05 | PDOC ---
Exam Note: Kt Note: Please also refer to the separate dictated note~for this date of service dictated separately.~Patient seen individually. Discussed the patient with Nursing staff reviewed the chart.~Reviewed interim history and current functioning. Reviewed vital signs,~Labs/ Radiology~and current medications noted below. Continue current treatment with the changes noted in the dictated addendum note Assessment: Vital Signs/I&O: Vital Signs Date Time Temp Pulse Resp B/P (MAP) Pulse Ox O2 Delivery O2 Flow Rate FiO2 05/10/19 21:11 Room Air 05/10/19 19:51 73 137/75 05/10/19 15:57 97.0 20 95 I & O 05/09/19 05/09/19 05/10/19 15:00 23:00 07:00 Intake Total 960 ml 360 ml Output Total 800 ml Balance 960 ml -440 ml Current Medications: Meds: Current Medications Medications (Trade) Dose Ordered Sig/Elias Route PRN Reason Start Time Stop Time Status Last Admin Dose Admin Fluvoxamine Maleate (Luvox) 50 mg DAILY PO 05/10/19 09:00 05/10/19 09:14 Lidocaine (Xylocaine) 1 coni BID TP 05/10/19 14:37 05/10/19 19:58 Latanoprost (Xalatan) 1 drop QHS OU 05/10/19 14:38 05/10/19 19:57 I have reviewed the current psychotropics carefully including drug interactions. Risk benefit ratio favors no change other than as noted in my dictated progress note. Diagnosis: Problems: (1) Anxiety disorder (2) Bipolar affective disorder, mixed (3) Impulse control disorder (4) Major depressive disorder, recurrent episode (5) Paranoid delusion AIME ROYAL MD May 10, 2019 23:05
[2019-05-11] MEDS: FAMOTIDINE 20 MG TABLET PO SCH (05:49)
[2019-05-11] MEDS: SUCRALFATE 1 GM TABLET. PO SCH ×2 (05:49→17:10)
[2019-05-11] MEDS: LEVOTHYROXINE 25 MCG TABLET. PO SCH (05:49)
[2019-05-11 06:16] VITALS: BP 150/69
[2019-05-11] MEDS: GABAPENTIN 300 MG CAPSULE. PO SCH ×3 (08:19→21:07)
[2019-05-11] MEDS: MAGNESIUM OXIDE 400 MG TABLET PO SCH ×2 (08:19→21:07)
[2019-05-11] MEDS: rOPINIRole 1 MG TABLET. PO SCH ×2 (08:19→21:07)
[2019-05-11] MEDS: METOPROLOL TART IMMED RELEASE 25 MG TABLET PO SCH ×2 (08:19→21:07)
[2019-05-11] MEDS: ASPIRIN 81 MG TAB.CHEW PO SCH (08:19)
[2019-05-11] MEDS: CHOLECALCIFEROL (VITAMIN D3) 1,000 UNIT TABLET PO SCH (08:19)
[2019-05-11] MEDS: LACTOBACILLUS RHAMNOSUS GG 1 CAPSULE. PO SCH (08:19)
[2019-05-11] MEDS: CETIRIZINE HCL 10 MG TABLET PO SCH (08:19)
[2019-05-11] MEDS: ASCORBIC ACID 500 MG TABLET PO SCH (08:19)
[2019-05-11] MEDS: POLYETHYLENE GLYCOL 3350 17 GM PACKET. PO SCH (08:20)
[2019-05-11] MEDS: LIDOCAINE 5% TOPICAL OINTMENT 35GM TUBE. TP SCH ×2 (08:20→21:16)
[2019-05-11] MEDS: oxyCODONE IR 5 MG TABLET PO PRN ×2 (10:27→21:34)
[2019-05-11] MEDS: AMIODARONE HCL 200 MG TABLET PO SCH (12:00)
[2019-05-11 16:20] VITALS: BP 132/77
[2019-05-11] MEDS: ENOXAPARIN 40 MG/0.4 ML SYRINGE. SQ SCH (21:05)
[2019-05-11] MEDS: traZODone 50 MG TABLET. PO SCH (21:05)
[2019-05-11] MEDS: risperiDONE 0.25 MG TABLET. PO SCH (21:05)
[2019-05-11] MEDS: ATORVASTATIN CALCIUM 10 MG TABLET. PO SCH (21:05)
[2019-05-11] MEDS: LATANOPROST 0.005% OPHTH SOLUTION 2.5ML BOTTLE. OU SCH (21:08)
--- NOTE | 2019-05-11 22:13 | PDOC ---
Exam Note: Kt Note: Please also refer to the separate dictated note~for this date of service dictated separately.~Patient seen individually. Discussed the patient with Nursing staff reviewed the chart.~Reviewed interim history and current functioning. Reviewed vital signs,~Labs/ Radiology~and current medications noted below. Continue current treatment with the changes noted in the dictated addendum note Assessment: Vital Signs/I&O: Vital Signs Date Time Temp Pulse Resp B/P (MAP) Pulse Ox O2 Delivery O2 Flow Rate FiO2 05/11/19 21:07 79 132/77 05/11/19 16:20 97.3 18 95 Room Air I & O 05/10/19 05/10/19 05/11/19 15:00 23:00 07:00 Intake Total 600 ml 360 ml 120 ml Output Total 1200 ml Balance 600 ml -840 ml 120 ml Current Medications: I have reviewed the current psychotropics carefully including drug interactions. Risk benefit ratio favors no change other than as noted in my dictated progress note. Diagnosis: Problems: (1) Anxiety disorder (2) Bipolar affective disorder, mixed (3) Impulse control disorder (4) Major depressive disorder, recurrent episode (5) Paranoid delusion AIME ROYAL MD May 11, 2019 22:13
--- NOTE | 2019-05-12 05:23 | PN ---
DATE: 05/09/2019 PSYCHIATRIC PROGRESS NOTE This late entry 05/09/2019, covers elements not covered in my initial note. SUBJECTIVE: I met with the patient in the evening. The patient slept 6 hours previous night. She remains somewhat anxious, suspicious, but denies active hallucinations. REVIEW OF SYSTEMS: No CV, , pulmonary, eye, ENT system symptoms on review. Gait unsteady in wheelchair. MENTAL STATUS EXAM: Oriented to herself and situation. Speech is coherent, abstraction fair, computation impaired, language function intact, attention span short. Mood and affect remain somewhat anxious, labile. LABORATORY DATA: Reviewed. IMPRESSION: Unchanged from initial note. PLAN: No change from initial note. Her last bowel movement was on the . We will monitor this. MAN Kamila ROYAL MD DR: ALLAN/luiz JOB#: [id number] / [id number]
[2019-05-12 05:53] VITALS: BP 164/96
[2019-05-12] MEDS: SUCRALFATE 1 GM TABLET. PO SCH ×2 (06:32→17:07)
[2019-05-12] MEDS: FAMOTIDINE 20 MG TABLET PO SCH (06:32)
[2019-05-12] MEDS: LEVOTHYROXINE 25 MCG TABLET. PO SCH (06:32)
[2019-05-12] MEDS: oxyCODONE IR 5 MG TABLET PO PRN ×3 (06:49→21:15)
[2019-05-12] MEDS: METOPROLOL TART IMMED RELEASE 25 MG TABLET PO SCH ×2 (08:29→19:17)
[2019-05-12] MEDS: POLYETHYLENE GLYCOL 3350 17 GM PACKET. PO SCH (08:29)
[2019-05-12] MEDS: CHOLECALCIFEROL (VITAMIN D3) 1,000 UNIT TABLET PO SCH (08:30)
[2019-05-12] MEDS: LACTOBACILLUS RHAMNOSUS GG 1 CAPSULE. PO SCH (08:30)
[2019-05-12] MEDS: rOPINIRole 1 MG TABLET. PO SCH ×2 (08:30→19:17)
[2019-05-12] MEDS: CETIRIZINE HCL 10 MG TABLET PO SCH (08:30)
[2019-05-12] MEDS: ASCORBIC ACID 500 MG TABLET PO SCH (08:30)
[2019-05-12] MEDS: ASPIRIN 81 MG TAB.CHEW PO SCH (08:30)
[2019-05-12] MEDS: GABAPENTIN 300 MG CAPSULE. PO SCH ×3 (08:30→19:17)
[2019-05-12] MEDS: MAGNESIUM OXIDE 400 MG TABLET PO SCH ×2 (08:30→19:17)
[2019-05-12] MEDS: LIDOCAINE 5% TOPICAL OINTMENT 35GM TUBE. TP SCH ×2 (09:00→19:18)
[2019-05-12] MEDS: AMIODARONE HCL 200 MG TABLET PO SCH (13:37)
[2019-05-12 15:45] VITALS: BP 122/67
[2019-05-12] MEDS: ENOXAPARIN 40 MG/0.4 ML SYRINGE. SQ SCH (19:16)
[2019-05-12] MEDS: risperiDONE 0.25 MG TABLET. PO SCH (19:16)
[2019-05-12] MEDS: traZODone 50 MG TABLET. PO SCH (19:17)
[2019-05-12] MEDS: ATORVASTATIN CALCIUM 10 MG TABLET. PO SCH (19:17)
[2019-05-12] MEDS: ESTRADIOL 0.01% VAGINAL CREAM 42.5GM TUBE. VG SCH (19:18)
[2019-05-12] MEDS: LATANOPROST 0.005% OPHTH SOLUTION 2.5ML BOTTLE. OU SCH (19:24)
--- NOTE | 2019-05-12 21:10 | PDOC ---
Exam Note: Kt Note: Please also refer to the separate dictated note~for this date of service dictated separately.~Patient seen individually. Discussed the patient with Nursing staff reviewed the chart.~Reviewed interim history and current functioning. Reviewed vital signs,~Labs/ Radiology~and current medications noted below. Continue current treatment with the changes noted in the dictated addendum note Assessment: Vital Signs/I&O: Vital Signs Date Time Temp Pulse Resp B/P (MAP) Pulse Ox O2 Delivery O2 Flow Rate FiO2 05/12/19 19:17 66 122/67 05/12/19 16:57 18 05/12/19 15:45 97.2 94 05/11/19 16:20 Room Air I & O 05/11/19 05/11/19 05/12/19 15:00 23:00 07:00 Intake Total 600 ml 360 ml Balance 600 ml 360 ml Current Medications: I have reviewed the current psychotropics carefully including drug interactions. Risk benefit ratio favors no change other than as noted in my dictated progress note. Diagnosis: Problems: (1) Anxiety disorder (2) Bipolar affective disorder, mixed (3) Impulse control disorder (4) Major depressive disorder, recurrent episode (5) Paranoid delusion AIME ROYAL MD May 12, 2019 21:10
--- NOTE | 2019-05-12 23:58 | PN ---
DATE: 05/11/2019 PSYCHIATRIC PROGRESS NOTE This late entry 05/11/2019 covers elements not covered in my initial note. SUBJECTIVE: I met with the patient in the evening of 05/11/2019. The patient slept 7-3/4 hours previous night. She has been quite obsessive about her hemorrhoids and rectal prolapse. We will defer to Dr. Glass. Less obsessed about wanting oxycodone. REVIEW OF SYSTEMS: Positive for above. No CV, , pulmonary, eye system symptoms on review. MENTAL STATUS EXAM: Oriented to herself and situation. Speech is coherent, abstraction fair, computation impaired, language function intact, attention span short. Mood and affect remain somewhat withdrawn, depressed, but better than before. LABORATORY DATA: Reviewed. IMPRESSION: Unchanged from initial note. PLAN: No change from initial note. Maintain Effexor, Risperdal along with trazodone. May need to increase Risperdal if psychotic symptoms resurface. AIME ROYAL MD DR: ALLAN/luiz JOB#: [id number] / [id number]
--- NOTE | 2019-05-13 03:28 | PN ---
DATE: 05/10/2019 PSYCHIATRIC PROGRESS NOTE This late entry 05/10/2019 covers elements not covered in my initial note. SUBJECTIVE: I met with the patient in the evening of 05/10/2019. The patient slept 7 hours previous night. She has been appropriate on the unit, still somewhat depressed. REVIEW OF SYSTEMS: Positive for complaints of hemorrhoids. No CV, , pulmonary, eye system symptoms on review. MENTAL STATUS EXAM: Oriented to herself and situation. Speech has some latency, coherent. Abstraction fair, computation impaired, language function intact, attention span short. Mood and affect somewhat withdrawn. LABORATORY DATA: Reviewed. IMPRESSION: Unchanged from initial note. PLAN: No change from initial note. AIME ROYAL MD DR: ALLAN/luiz JOB#: [id number] / [id number]
[2019-05-13 05:24] LABS: BACTERIA,URINE MANY /HPF (0-FEW); BILIRUBIN,URINE NEG (NEG); COLOR,URINE YELLOW; GLUCOSE,URINE NEG (NEG); NITRITE,URINE NEG (NEG); RBC,URINE 0 /HPF (0-2); UROBILINOGEN,URINE 0.2 mg/dL (0.2 mg/dL)
[2019-05-13 05:25] LABS: CLARITY,URINE HAZY; SQUAMOUS EPITHELIAL CELL,UR FEW /LPF
[2019-05-13] MEDS: FAMOTIDINE 20 MG TABLET PO SCH (05:29)
[2019-05-13] MEDS: SUCRALFATE 1 GM TABLET. PO SCH ×2 (05:29→17:17)
[2019-05-13] MEDS: LEVOTHYROXINE 25 MCG TABLET. PO SCH (05:29)
[2019-05-13 05:35] VITALS: BP 171/71
[2019-05-13] MEDS: oxyCODONE IR 5 MG TABLET PO PRN ×3 (05:55→21:16)
[2019-05-13] MEDS: GABAPENTIN 300 MG CAPSULE. PO SCH ×3 (10:08→19:19)
[2019-05-13] MEDS: CHOLECALCIFEROL (VITAMIN D3) 1,000 UNIT TABLET PO SCH (10:08)
[2019-05-13] MEDS: rOPINIRole 1 MG TABLET. PO SCH ×2 (10:08→19:18)
[2019-05-13] MEDS: LACTOBACILLUS RHAMNOSUS GG 1 CAPSULE. PO SCH (10:08)
[2019-05-13] MEDS: CETIRIZINE HCL 10 MG TABLET PO SCH (10:09)
[2019-05-13] MEDS: LIDOCAINE 5% TOPICAL OINTMENT 35GM TUBE. TP SCH ×2 (10:09→19:19)
[2019-05-13] MEDS: ASPIRIN 81 MG TAB.CHEW PO SCH (10:09)
[2019-05-13] MEDS: METOPROLOL TART IMMED RELEASE 25 MG TABLET PO SCH ×2 (10:09→19:18)
[2019-05-13] MEDS: MAGNESIUM OXIDE 400 MG TABLET PO SCH ×2 (10:09→19:18)
[2019-05-13] MEDS: POLYETHYLENE GLYCOL 3350 17 GM PACKET. PO SCH (10:09)
[2019-05-13] MEDS: ASCORBIC ACID 500 MG TABLET PO SCH (10:09)
[2019-05-13] MEDS: AMIODARONE HCL 200 MG TABLET PO SCH (12:49)
[2019-05-13 16:20] VITALS: BP 126/76
[2019-05-13 16:25] LABS: BASO # 0.1 x10^3/uL (0.0-0.2); BASO % 1 % (0-3); EOS # 0.7 x10^3/uL (0.0-0.7); EOS % 11 % (0-3); HEMATOCRIT 28.2 % (36.0-47.0); HEMOGLOBIN 8.7 g/dL (12.0-15.5); LYMPH # 1.9 x10^3/uL (1.0-4.8); LYMPH % 29 % (24-48); MEAN CORPUSCULAR HEMOGLOBIN 24 pg (25-35); MEAN CORPUSCULAR HGB CONC 31 g/dL (31-37); MEAN CORPUSCULAR VOLUME 77 fL (79-100); MONO # 0.8 x10^3/uL (0.0-1.1); MONO % 13 % (0-9); NEUT % 46 % (31-73); PLATELET COUNT 267 x10^3/uL (140-400); WHITE BLOOD COUNT 6.4 x10^3/uL (4.0-11.0)
[2019-05-13 16:52] LABS: ALBUMIN 3.3 g/dL (3.4-5.0); ALBUMIN/GLOBULIN RATIO 0.9 (1.0-1.7); CALCIUM 9.1 mg/dL (8.5-10.1); CREATININE 1.1 mg/dL (0.6-1.0); GFR 48.3; POTASSIUM 4.4 mmol/L (3.5-5.1); TOTAL BILIRUBIN 0.2 mg/dL (0.2-1.0); TOTAL PROTEIN 6.8 g/dL (6.4-8.2)
[2019-05-13] MEDS: ENOXAPARIN 40 MG/0.4 ML SYRINGE. SQ SCH (19:17)
[2019-05-13] MEDS: risperiDONE 0.25 MG TABLET. PO SCH (19:18)
[2019-05-13] MEDS: ATORVASTATIN CALCIUM 10 MG TABLET. PO SCH (19:19)
[2019-05-13] MEDS: traZODone 50 MG TABLET. PO SCH (19:19)
[2019-05-13] MEDS: LATANOPROST 0.005% OPHTH SOLUTION 2.5ML BOTTLE. OU SCH (19:21)
--- NOTE | 2019-05-13 21:34 | PN ---
DATE: 05/12/2019 PSYCHIATRIC PROGRESS NOTE. This is a late entry of 05/12/2019 covers the elements not covered in my initial note. SUBJECTIVE: I met with the patient in the evening of 05/12/2019. The patient slept 6 hours previous night. She has been less obsessive regarding her pain medications, complains of a rash, but less agitated. REVIEW OF SYSTEMS: Ambulation impaired, in wheelchair, less fixated on hemorrhoid symptoms. No CV, , pulmonary, eye system symptoms on review. MENTAL STATUS EXAM: Oriented to herself and situation. Speech is coherent, has some latency. Abstraction fair, computation impaired, language function intact, attention span short. Mood and affect still somewhat withdrawn, depressed, but improved. LABORATORY DATA: Reviewed. IMPRESSION: Unchanged from initial note. PLAN: No change from initial note. MAN Kamila ROYAL MD DR: ALLAN/luiz JOB#: [id number] / [id number]
--- NOTE | 2019-05-13 22:24 | PDOC ---
Exam Note: Kt Note: Please also refer to the separate dictated note~for this date of service dictated separately.~Patient seen individually. Discussed the patient with Nursing staff reviewed the chart.~Reviewed interim history and current functioning. Reviewed vital signs,~Labs/ Radiology~and current medications noted below. Continue current treatment with the changes noted in the dictated addendum note Assessment: Vital Signs/I&O: Vital Signs Date Time Temp Pulse Resp B/P (MAP) Pulse Ox O2 Delivery O2 Flow Rate FiO2 05/13/19 21:16 Room Air 05/13/19 19:18 65 126/76 05/13/19 16:20 97.7 18 95 I & O 05/12/19 05/12/19 05/13/19 14:59 22:59 06:59 Intake Total 960 ml 360 ml Output Total 600 ml 800 ml Balance 960 ml -240 ml -800 ml Labs: Laboratory Tests Test 05/13/19 05:00 05/13/19 16:05 Urine Collection Type Void Urine Color Yellow Urine Clarity Hazy Urine pH 7.5 Urine Specific [place] 1.015 Urine Protein Neg (NEG-TRACE) Urine Glucose (UA) Neg mg/dL (NEG) Urine Ketones (Stick) Neg mg/dL (NEG) Urine Blood Neg (NEG) Urine Nitrite Neg (NEG) Urine Bilirubin Neg (NEG) Urine Urobilinogen Dipstick 0.2 mg/dL (0.2 mg/dL) Urine Leukocyte Esterase Large (NEG) Urine RBC 0 /HPF (0-2) Urine WBC 11-20 /HPF (0-4) Urine Squamous Epithelial Cells Few /LPF Urine Bacteria Many /HPF (0-FEW) White Blood Count 6.4 x10^3/uL (4.0-11.0) Red Blood Count 3.70 x10^6/uL (3.50-5.40) Hemoglobin 8.7 g/dL (12.0-15.5) L Hematocrit 28.2 % (36.0-47.0) L Mean Corpuscular Volume 77 fL (79-100) L Mean Corpuscular Hemoglobin 24 pg (25-35) L Mean Corpuscular Hemoglobin Concent 31 g/dL (31-37) Red Cell Distribution Width 20.0 % (11.5-14.5) H Platelet Count 267 x10^3/uL (140-400) Neutrophils (%) (Auto) 46 % (31-73) Lymphocytes (%) (Auto) 29 % (24-48) Monocytes (%) (Auto) 13 % (0-9) H Eosinophils (%) (Auto) 11 % (0-3) H Basophils (%) (Auto) 1 % (0-3) Neutrophils # (Auto) 3.0 x10^3uL (1.8-7.7) Lymphocytes # (Auto) 1.9 x10^3/uL (1.0-4.8) Monocytes # (Auto) 0.8 x10^3/uL (0.0-1.1) Eosinophils # (Auto) 0.7 x10^3/uL (0.0-0.7) Basophils # (Auto) 0.1 x10^3/uL (0.0-0.2) Sodium Level 138 mmol/L (136-145) Potassium Level 4.4 mmol/L (3.5-5.1) Chloride Level 101 mmol/L (98-107) Carbon Dioxide Level 33 mmol/L (21-32) H Anion Gap 4 (6-14) L Blood Urea Nitrogen 24 mg/dL (7-20) H Creatinine 1.1 mg/dL (0.6-1.0) H Estimated GFR (Cockcroft-Gault) 48.3 BUN/Creatinine Ratio 22 (6-20) H Glucose Level 150 mg/dL (70-99) H Calcium Level 9.1 mg/dL (8.5-10.1) Total Bilirubin 0.2 mg/dL (0.2-1.0) Aspartate Amino Transferase (AST) 20 U/L (15-37) Alanine Aminotransferase (ALT) 31 U/L (14-59) Alkaline Phosphatase 95 U/L (46-116) Total Protein 6.8 g/dL (6.4-8.2) Albumin 3.3 g/dL (3.4-5.0) L Albumin/Globulin Ratio 0.9 (1.0-1.7) L Current Medications: I have reviewed the current psychotropics carefully including drug interactions. Risk benefit ratio favors no change other than as noted in my dictated progress note. Diagnosis: Problems: (1) Anxiety disorder (2) Bipolar affective disorder, mixed (3) Impulse control disorder (4) Major depressive disorder, recurrent episode (5) Paranoid delusion AIME ROYAL MD May 13, 2019 22:24
[2019-05-14] MEDS: LEVOTHYROXINE 25 MCG TABLET. PO SCH (05:34)
[2019-05-14] MEDS: SUCRALFATE 1 GM TABLET. PO SCH ×2 (05:35→16:43)
[2019-05-14] MEDS: FAMOTIDINE 20 MG TABLET PO SCH (05:35)
[2019-05-14 05:55] VITALS: BP 143/79
[2019-05-14 07:44] LABS: BASO # 0.1 x10^3/uL (0.0-0.2); BASO % 2 % (0-3); EOS # 0.6 x10^3/uL (0.0-0.7); EOS % 12 % (0-3); HEMATOCRIT 28.9 % (36.0-47.0); HEMOGLOBIN 8.8 g/dL (12.0-15.5); LYMPH # 1.4 x10^3/uL (1.0-4.8); LYMPH % 27 % (24-48); MEAN CORPUSCULAR HEMOGLOBIN 23 pg (25-35); MEAN CORPUSCULAR HGB CONC 31 g/dL (31-37); MEAN CORPUSCULAR VOLUME 75 fL (79-100); MONO # 0.7 x10^3/uL (0.0-1.1); MONO % 13 % (0-9); NEUT # 2.5 x10^3uL (1.8-7.7); NEUT % 47 % (31-73); PLATELET COUNT 284 x10^3/uL (140-400); RED BLOOD COUNT 3.85 x10^6/uL (3.50-5.40); RED CELL DISTRIBUTION WIDTH 20.3 % (11.5-14.5); WHITE BLOOD COUNT 5.3 x10^3/uL (4.0-11.0)
[2019-05-14 08:00] LABS: ALBUMIN 3.2 g/dL (3.4-5.0); ALBUMIN/GLOBULIN RATIO 0.9 (1.0-1.7); CALCIUM 9.2 mg/dL (8.5-10.1); GFR 53.9; POTASSIUM 4.3 mmol/L (3.5-5.1); TOTAL BILIRUBIN 0.2 mg/dL (0.2-1.0); TOTAL PROTEIN 6.8 g/dL (6.4-8.2)
[2019-05-14] MEDS: CETIRIZINE HCL 10 MG TABLET PO SCH (08:16)
[2019-05-14] MEDS: CHOLECALCIFEROL (VITAMIN D3) 1,000 UNIT TABLET PO SCH (08:16)
[2019-05-14] MEDS: POLYETHYLENE GLYCOL 3350 17 GM PACKET. PO SCH (08:16)
[2019-05-14] MEDS: LACTOBACILLUS RHAMNOSUS GG 1 CAPSULE. PO SCH (08:17)
[2019-05-14] MEDS: AMIODARONE HCL 200 MG TABLET PO SCH (08:17)
[2019-05-14] MEDS: GABAPENTIN 300 MG CAPSULE. PO SCH ×3 (08:17→19:11)
[2019-05-14] MEDS: ASCORBIC ACID 500 MG TABLET PO SCH (08:17)
[2019-05-14] MEDS: MAGNESIUM OXIDE 400 MG TABLET PO SCH ×2 (08:18→19:11)
[2019-05-14] MEDS: METOPROLOL TART IMMED RELEASE 25 MG TABLET PO SCH ×2 (08:18→19:11)
[2019-05-14] MEDS: ASPIRIN 81 MG TAB.CHEW PO SCH (08:18)
[2019-05-14] MEDS: rOPINIRole 1 MG TABLET. PO SCH ×2 (08:18→19:11)
[2019-05-14] MEDS: LIDOCAINE 5% TOPICAL OINTMENT 35GM TUBE. TP SCH ×2 (08:22→19:34)
[2019-05-14] MEDS: oxyCODONE IR 5 MG TABLET PO PRN ×2 (14:23→19:33)
[2019-05-14 16:10] VITALS: BP 134/73
[2019-05-14] MEDS: traZODone 50 MG TABLET. PO SCH (19:11)
[2019-05-14] MEDS: ATORVASTATIN CALCIUM 10 MG TABLET. PO SCH (19:11)
[2019-05-14] MEDS: risperiDONE 0.25 MG TABLET. PO SCH (19:12)
[2019-05-14] MEDS: ENOXAPARIN 40 MG/0.4 ML SYRINGE. SQ SCH (19:13)
[2019-05-14] MEDS: LATANOPROST 0.005% OPHTH SOLUTION 2.5ML BOTTLE. OU SCH (19:31)
[2019-05-14] MEDS: ESTRADIOL 0.01% VAGINAL CREAM 42.5GM TUBE. VG SCH (19:32)
--- NOTE | 2019-05-14 22:31 | PDOC ---
Exam Note: Kt Note: Please also refer to the separate dictated note~for this date of service dictated separately.~Patient seen individually. Discussed the patient with Nursing staff reviewed the chart.~Reviewed interim history and current functioning. Reviewed vital signs,~Labs/ Radiology~and current medications noted below. Continue current treatment with the changes noted in the dictated addendum note Assessment: Vital Signs/I&O: Vital Signs Date Time Temp Pulse Resp B/P (MAP) Pulse Ox O2 Delivery O2 Flow Rate FiO2 05/14/19 20:33 97 Room Air 05/14/19 19:11 66 134/73 05/14/19 17:10 16 05/14/19 16:10 98.5 I & O 05/13/19 05/13/19 05/14/19 14:59 22:59 06:59 Intake Total 720 ml 360 ml 120 ml Output Total 2000 ml Balance 720 ml 360 ml -1880 ml Labs: Laboratory Tests Test 05/14/19 07:19 White Blood Count 5.3 x10^3/uL (4.0-11.0) Red Blood Count 3.85 x10^6/uL (3.50-5.40) Hemoglobin 8.8 g/dL (12.0-15.5) L Hematocrit 28.9 % (36.0-47.0) L Mean Corpuscular Volume 75 fL (79-100) L Mean Corpuscular Hemoglobin 23 pg (25-35) L Mean Corpuscular Hemoglobin Concent 31 g/dL (31-37) Red Cell Distribution Width 20.3 % (11.5-14.5) H Platelet Count 284 x10^3/uL (140-400) Neutrophils (%) (Auto) 47 % (31-73) Lymphocytes (%) (Auto) 27 % (24-48) Monocytes (%) (Auto) 13 % (0-9) H Eosinophils (%) (Auto) 12 % (0-3) H Basophils (%) (Auto) 2 % (0-3) Neutrophils # (Auto) 2.5 x10^3uL (1.8-7.7) Lymphocytes # (Auto) 1.4 x10^3/uL (1.0-4.8) Monocytes # (Auto) 0.7 x10^3/uL (0.0-1.1) Eosinophils # (Auto) 0.6 x10^3/uL (0.0-0.7) Basophils # (Auto) 0.1 x10^3/uL (0.0-0.2) Sodium Level 140 mmol/L (136-145) Potassium Level 4.3 mmol/L (3.5-5.1) Chloride Level 103 mmol/L (98-107) Carbon Dioxide Level 31 mmol/L (21-32) Anion Gap 6 (6-14) Blood Urea Nitrogen 24 mg/dL (7-20) H Creatinine 1.0 mg/dL (0.6-1.0) Estimated GFR (Cockcroft-Gault) 53.9 BUN/Creatinine Ratio 24 (6-20) H Glucose Level 118 mg/dL (70-99) H Calcium Level 9.2 mg/dL (8.5-10.1) Total Bilirubin 0.2 mg/dL (0.2-1.0) Aspartate Amino Transferase (AST) 25 U/L (15-37) Alanine Aminotransferase (ALT) 34 U/L (14-59) Alkaline Phosphatase 92 U/L (46-116) Total Protein 6.8 g/dL (6.4-8.2) Albumin 3.2 g/dL (3.4-5.0) L Albumin/Globulin Ratio 0.9 (1.0-1.7) L Current Medications: I have reviewed the current psychotropics carefully including drug interactions. Risk benefit ratio favors no change other than as noted in my dictated progress note. Diagnosis: Problems: (1) Anxiety disorder (2) Bipolar affective disorder, mixed (3) Impulse control disorder (4) Major depressive disorder, recurrent episode (5) Paranoid delusion (6) Mild cognitive impairment AIME ROYAL MD May 14, 2019 22:31
[2019-05-15] MEDS: FAMOTIDINE 20 MG TABLET PO SCH (05:34)
[2019-05-15] MEDS: SUCRALFATE 1 GM TABLET. PO SCH ×2 (05:34→16:30)
[2019-05-15] MEDS: LEVOTHYROXINE 25 MCG TABLET. PO SCH (05:35)
[2019-05-15] MEDS: oxyCODONE IR 5 MG TABLET PO PRN ×3 (05:44→16:51)
[2019-05-15 06:58] VITALS: BP 149/67
[2019-05-15] MEDS: LACTOBACILLUS RHAMNOSUS GG 1 CAPSULE. PO SCH (08:08)
[2019-05-15] MEDS: ASCORBIC ACID 500 MG TABLET PO SCH (08:09)
[2019-05-15] MEDS: METOPROLOL TART IMMED RELEASE 25 MG TABLET PO SCH ×2 (08:09→19:19)
[2019-05-15] MEDS: ASPIRIN 81 MG TAB.CHEW PO SCH (08:09)
[2019-05-15] MEDS: CHOLECALCIFEROL (VITAMIN D3) 1,000 UNIT TABLET PO SCH (08:09)
[2019-05-15] MEDS: MAGNESIUM OXIDE 400 MG TABLET PO SCH ×2 (08:09→19:20)
[2019-05-15] MEDS: rOPINIRole 1 MG TABLET. PO SCH ×2 (08:09→19:20)
[2019-05-15] MEDS: LIDOCAINE 5% TOPICAL OINTMENT 35GM TUBE. TP SCH ×2 (08:10→19:21)
[2019-05-15] MEDS: POLYETHYLENE GLYCOL 3350 17 GM PACKET. PO SCH (08:10)
[2019-05-15] MEDS: GABAPENTIN 300 MG CAPSULE. PO SCH ×3 (08:11→19:51)
[2019-05-15] MEDS: CETIRIZINE HCL 10 MG TABLET PO SCH (08:11)
[2019-05-15] MEDS: AMIODARONE HCL 200 MG TABLET PO SCH (12:00)
--- NOTE | 2019-05-15 16:34 | PN ---
DATE: 05/13/2019 PSYCHIATRIC PROGRESS NOTE This late entry 05/13/2019 covers elements not covered in my initial note. SUBJECTIVE: I met with the patient in the evening of 05/13/2019. The patient slept 6-3/4 hours previous night. She complains of being dizzy and weak, is in a wheelchair, but no CV, , pulmonary, eye system symptoms on review. She is constantly wanting oxycodone. MENTAL STATUS EXAM: Oriented to herself and situation. Speech has some latency, coherent. Abstraction fair, computation impaired, language function intact, attention span short. Mood and affect is improved, but still somewhat dysphoric at times. LABORATORY DATA: Reviewed. IMPRESSION: Unchanged from initial note. PLAN: Change the Effexor 150 mg a day to Effexor XR 150 mg a day. Rest unchanged for now. MAN Kamila ROYAL MD DR: ALLAN/luiz JOB#: [id number] / [id number]
[2019-05-15 16:54] VITALS: BP 142/82
[2019-05-15] MEDS: ATORVASTATIN CALCIUM 10 MG TABLET. PO SCH (19:19)
[2019-05-15] MEDS: traZODone 50 MG TABLET. PO SCH (19:19)
[2019-05-15] MEDS: LATANOPROST 0.005% OPHTH SOLUTION 2.5ML BOTTLE. OU SCH (19:20)
[2019-05-15] MEDS: risperiDONE 0.25 MG TABLET. PO SCH (19:20)
[2019-05-15] MEDS: ENOXAPARIN 40 MG/0.4 ML SYRINGE. SQ SCH (19:21)
[2019-05-15] MEDS: AMOXICILLIN 250 MG CAPSULE PO SCH (19:50)
--- NOTE | 2019-05-15 22:46 | PDOC ---
Exam Note: Kt Note: Please also refer to the separate dictated note~for this date of service dictated separately.~Patient seen individually. Discussed the patient with Nursing staff reviewed the chart.~Reviewed interim history and current functioning. Reviewed vital signs,~Labs/ Radiology~and current medications noted below. Continue current treatment with the changes noted in the dictated addendum note Assessment: Vital Signs/I&O: Vital Signs Date Time Temp Pulse Resp B/P (MAP) Pulse Ox O2 Delivery O2 Flow Rate FiO2 05/15/19 19:19 69 142/82 05/15/19 18:00 18 91 Room Air 05/15/19 16:54 97.9 I & O 05/14/19 05/14/19 05/15/19 14:59 22:59 06:59 Intake Total 840 ml 360 ml Output Total 1000 ml Balance 840 ml -640 ml Current Medications: Meds: Current Medications Medications (Trade) Dose Ordered Sig/Elias Route PRN Reason Start Time Stop Time Status Last Admin Dose Admin Amoxicillin (Amoxil) 250 mg [id number] PO 05/15/19 21:00 05/21/19 20:59 05/15/19 19:50 I have reviewed the current psychotropics carefully including drug interactions. Risk benefit ratio favors no change other than as noted in my dictated progress note. Diagnosis: Problems: (1) Anxiety disorder (2) Bipolar affective disorder, mixed (3) Impulse control disorder (4) Major depressive disorder, recurrent episode (5) Paranoid delusion (6) Mild cognitive impairment AIME ROYAL MD May 15, 2019 22:46
[2019-05-16] MEDS: oxyCODONE IR 5 MG TABLET PO PRN ×3 (02:23→20:11)
[2019-05-16] MEDS: LEVOTHYROXINE 25 MCG TABLET. PO SCH (06:07)
[2019-05-16] MEDS: FAMOTIDINE 20 MG TABLET PO SCH (06:07)
[2019-05-16] MEDS: SUCRALFATE 1 GM TABLET. PO SCH ×2 (06:07→16:43)
[2019-05-16 06:36] VITALS: BP 156/75
[2019-05-16] MEDS: POLYETHYLENE GLYCOL 3350 17 GM PACKET. PO SCH (07:42)
[2019-05-16] MEDS: ASCORBIC ACID 500 MG TABLET PO SCH (07:43)
[2019-05-16] MEDS: LACTOBACILLUS RHAMNOSUS GG 1 CAPSULE. PO SCH (07:43)
[2019-05-16] MEDS: rOPINIRole 1 MG TABLET. PO SCH ×2 (07:43→20:08)
[2019-05-16] MEDS: CHOLECALCIFEROL (VITAMIN D3) 1,000 UNIT TABLET PO SCH (07:43)
[2019-05-16] MEDS: AMOXICILLIN 250 MG CAPSULE PO SCH ×3 (07:43→20:07)
[2019-05-16] MEDS: ASPIRIN 81 MG TAB.CHEW PO SCH (07:43)
[2019-05-16] MEDS: MAGNESIUM OXIDE 400 MG TABLET PO SCH ×2 (07:43→20:08)
[2019-05-16] MEDS: METOPROLOL TART IMMED RELEASE 25 MG TABLET PO SCH ×2 (07:43→20:08)
[2019-05-16] MEDS: CETIRIZINE HCL 10 MG TABLET PO SCH (07:44)
[2019-05-16] MEDS: AMIODARONE HCL 200 MG TABLET PO SCH (07:45)
[2019-05-16] MEDS: GABAPENTIN 300 MG CAPSULE. PO SCH ×3 (07:45→20:11)
[2019-05-16] MEDS: LIDOCAINE 5% TOPICAL OINTMENT 35GM TUBE. TP SCH ×2 (07:46→20:08)
--- NOTE | 2019-05-16 12:33 | PN ---
DATE: 05/14/2019 PSYCHIATRIC PROGRESS NOTE This late entry 05/14/2019 covers elements not covered in my initial note. SUBJECTIVE: I met with the patient evening of 05/14/2019. The patient slept 6-1/4 hours previous night. She has been somewhat delusional per nursing staff, but compliant and calm. She is anxious regarding her apartment. States she needs to look for a job. Somewhat obsessive at times. REVIEW OF SYSTEMS: Positive for complaints of hemorrhoids, impaired ambulation in wheelchair. No CV, , pulmonary, eye system symptoms on review. MENTAL STATUS EXAM: Oriented to herself and situation. Speech is coherent, abstraction fair, computation impaired, language function intact, attention span short. Mood and affect remain somewhat anxious at times. LABORATORY DATA: Reviewed. IMPRESSION: Unchanged from initial note. PLAN: No change from initial note. MAN Kamila ROYAL MD DR: ALLAN/luiz JOB#: [id number] / [id number]
[2019-05-16 16:03] VITALS: BP 115/71
[2019-05-16] MEDS: traZODone 50 MG TABLET. PO SCH (20:07)
[2019-05-16] MEDS: ATORVASTATIN CALCIUM 10 MG TABLET. PO SCH (20:07)
[2019-05-16] MEDS: risperiDONE 0.25 MG TABLET. PO SCH (20:08)
[2019-05-16] MEDS: ESTRADIOL 0.01% VAGINAL CREAM 42.5GM TUBE. VG SCH (20:09)
[2019-05-16] MEDS: ENOXAPARIN 40 MG/0.4 ML SYRINGE. SQ SCH (20:11)
[2019-05-16] MEDS: LATANOPROST 0.005% OPHTH SOLUTION 2.5ML BOTTLE. OU SCH ×2 (20:12→22:47)
--- NOTE | 2019-05-16 21:54 | PN ---
DATE: 05/15/2019 PSYCHIATRIC PROGRESS NOTE This is a late entry 05/15/2019, covers the elements not covered in my initial note. SUBJECTIVE: I met with the patient in the evening of 05/15/2019 and staffed at a treatment team meeting with the entire team earlier in the day. The patient is sleeping 6-7 hours. Appetite 75-100%, refused to shower, took it later, less obsessed about with her bowels. She is less paranoid about people trying to rape her, calmer, cooperative. REVIEW OF SYSTEMS: Ambulation impaired, in wheelchair. No CV, , pulmonary, eye, ENT system symptoms on review. Reliability varies. MENTAL STATUS EXAM: Oriented to herself and situation. Speech is coherent, abstraction fair, computation impaired, language function intact, attention span short. Mood and affect remain somewhat anxious, labile, but better than before. LABORATORY DATA: Reviewed. IMPRESSION: Unchanged from initial note. PLAN: No change from initial note. AIME ROYAL MD DR: ALLAN/luiz JOB#: [id number] / [id number]
--- NOTE | 2019-05-16 22:25 | PDOC ---
Exam Note: Kt Note: Please also refer to the separate dictated note~for this date of service dictated separately.~Patient seen individually. Discussed the patient with Nursing staff reviewed the chart.~Reviewed interim history and current functioning. Reviewed vital signs,~Labs/ Radiology~and current medications noted below. Continue current treatment with the changes noted in the dictated addendum note Assessment: Vital Signs/I&O: Vital Signs Date Time Temp Pulse Resp B/P (MAP) Pulse Ox O2 Delivery O2 Flow Rate FiO2 05/16/19 21:13 20 96 Room Air 05/16/19 20:08 60 115/71 05/16/19 16:03 97.8 I & O 05/15/19 05/15/19 05/16/19 15:00 23:00 07:00 Intake Total 960 ml 240 ml Balance 960 ml 240 ml Current Medications: Meds: Current Medications Medications (Trade) Dose Ordered Sig/Elias Route PRN Reason Start Time Stop Time Status Last Admin Dose Admin Amiodarone HCl (Cordarone) 200 mg DAILY PO 05/16/19 09:00 05/16/19 07:45 I have reviewed the current psychotropics carefully including drug interactions. Risk benefit ratio favors no change other than as noted in my dictated progress note. Diagnosis: Problems: (1) Anxiety disorder (2) Bipolar affective disorder, mixed (3) Impulse control disorder (4) Major depressive disorder, recurrent episode (5) Paranoid delusion (6) Mild cognitive impairment AIME ROYAL MD May 16, 2019 22:24
[2019-05-17] MEDS ORDERED: ACET325T9 PO (00:18)
[2019-05-17] MEDS ORDERED: AMOX-260 PO (00:20)
[2019-05-17] MEDS ORDERED: BISA10SU55 RC (00:20)
[2019-05-17] MEDS ORDERED: ENOX40DI SQ (00:21)
[2019-05-17] MEDS ORDERED: FAMO-63 PO (00:23)
[2019-05-17] MEDS ORDERED: MAGN2400 PO (00:25)
[2019-05-17] MEDS ORDERED: MAG30ORA2 PO (00:25)
[2019-05-17] MEDS ORDERED: METH29OI TOP (00:27)
[2019-05-17] MEDS ORDERED: ONDA4TAB12 PO (00:28)
[2019-05-17] MEDS ORDERED: POLY17PO5 PO (00:29)
[2019-05-17] MEDS ORDERED: RISP0.5T24 PO (00:30)
[2019-05-17] MEDS ORDERED: FLUV50TA2 PO (00:30)
[2019-05-17] MEDS ORDERED: TRAZ-120 PO ×2 (00:31→00:33)
[2019-05-17] MEDS: FAMOTIDINE 20 MG TABLET PO SCH (05:32)
[2019-05-17] MEDS: SUCRALFATE 1 GM TABLET. PO SCH ×2 (05:32→16:30)
[2019-05-17] MEDS: LEVOTHYROXINE 25 MCG TABLET. PO SCH (05:32)
[2019-05-17 05:36] VITALS: BP 153/62
[2019-05-17] MEDS: oxyCODONE IR 5 MG TABLET PO PRN ×3 (05:38→21:03)
[2019-05-17] MEDS: rOPINIRole 1 MG TABLET. PO SCH ×2 (08:06→19:20)
[2019-05-17] MEDS: POLYETHYLENE GLYCOL 3350 17 GM PACKET. PO SCH (08:06)
[2019-05-17] MEDS: AMOXICILLIN 250 MG CAPSULE PO SCH ×3 (08:06→19:20)
[2019-05-17] MEDS: CHOLECALCIFEROL (VITAMIN D3) 1,000 UNIT TABLET PO SCH (08:06)
[2019-05-17] MEDS: METOPROLOL TART IMMED RELEASE 25 MG TABLET PO SCH ×2 (08:07→20:41)
[2019-05-17] MEDS: CETIRIZINE HCL 10 MG TABLET PO SCH (08:07)
[2019-05-17] MEDS: ASPIRIN 81 MG TAB.CHEW PO SCH (08:07)
[2019-05-17] MEDS: ASCORBIC ACID 500 MG TABLET PO SCH (08:07)
[2019-05-17] MEDS: LACTOBACILLUS RHAMNOSUS GG 1 CAPSULE. PO SCH ×2 (08:07→19:20)
[2019-05-17] MEDS: MAGNESIUM OXIDE 400 MG TABLET PO SCH ×2 (08:07→19:20)
[2019-05-17] MEDS: AMIODARONE HCL 200 MG TABLET PO SCH (08:07)
[2019-05-17] MEDS: LIDOCAINE 5% TOPICAL OINTMENT 35GM TUBE. TP SCH ×2 (08:09→20:40)
[2019-05-17] MEDS: GABAPENTIN 300 MG CAPSULE. PO SCH ×3 (08:11→19:20)
[2019-05-17 15:38] VITALS: BP 143/75
[2019-05-17] MEDS: traZODone 50 MG TABLET. PO SCH (19:19)
[2019-05-17] MEDS: risperiDONE 0.25 MG TABLET. PO SCH (19:20)
[2019-05-17] MEDS: ATORVASTATIN CALCIUM 10 MG TABLET. PO SCH (19:20)
[2019-05-17] MEDS: ENOXAPARIN 40 MG/0.4 ML SYRINGE. SQ SCH (20:40)
[2019-05-17] MEDS: LATANOPROST 0.005% OPHTH SOLUTION 2.5ML BOTTLE. OU SCH (21:46)
--- NOTE | 2019-05-17 23:13 | PDOC ---
Exam Note: Kt Note: Please also refer to the separate dictated note~for this date of service dictated separately.~Patient seen individually. Discussed the patient with Nursing staff reviewed the chart.~Reviewed interim history and current functioning. Reviewed vital signs,~Labs/ Radiology~and current medications noted below. Continue current treatment with the changes noted in the dictated addendum note Assessment: Vital Signs/I&O: Vital Signs Date Time Temp Pulse Resp B/P (MAP) Pulse Ox O2 Delivery O2 Flow Rate FiO2 05/17/19 22:03 20 95 05/17/19 20:41 70 154/77 05/17/19 16:30 Room Air 05/17/19 15:38 98.4 I & O 05/16/19 05/16/19 05/17/19 15:00 23:00 07:00 Intake Total 600 ml 240 ml Output Total 100 ml Balance 600 ml 240 ml -100 ml Current Medications: I have reviewed the current psychotropics carefully including drug interactions. Risk benefit ratio favors no change other than as noted in my dictated progress note. Diagnosis: Problems: (1) Anxiety disorder (2) Bipolar affective disorder, mixed (3) Impulse control disorder (4) Major depressive disorder, recurrent episode (5) Paranoid delusion (6) Mild cognitive impairment AIME ROYAL MD May 17, 2019 23:13
[2019-05-18] MEDS: FAMOTIDINE 20 MG TABLET PO SCH (05:46)
[2019-05-18] MEDS: SUCRALFATE 1 GM TABLET. PO SCH ×2 (05:46→16:19)
[2019-05-18] MEDS: LEVOTHYROXINE 25 MCG TABLET. PO SCH (05:46)
[2019-05-18] MEDS: LIDOCAINE 5% TOPICAL OINTMENT 35GM TUBE. TP SCH ×2 (05:58→21:32)
[2019-05-18] MEDS: oxyCODONE IR 5 MG TABLET PO PRN ×2 (05:58→12:16)
[2019-05-18 06:29] VITALS: BP 144/78
[2019-05-18] MEDS: AMOXICILLIN 250 MG CAPSULE PO SCH ×3 (08:16→21:31)
[2019-05-18] MEDS: ASPIRIN 81 MG TAB.CHEW PO SCH (08:16)
[2019-05-18] MEDS: AMIODARONE HCL 200 MG TABLET PO SCH (08:17)
[2019-05-18] MEDS: POLYETHYLENE GLYCOL 3350 17 GM PACKET. PO SCH (08:18)
[2019-05-18] MEDS: MAGNESIUM OXIDE 400 MG TABLET PO SCH ×2 (08:18→21:31)
[2019-05-18] MEDS: ASCORBIC ACID 500 MG TABLET PO SCH (08:18)
[2019-05-18] MEDS: METOPROLOL TART IMMED RELEASE 25 MG TABLET PO SCH ×2 (08:18→21:32)
[2019-05-18] MEDS: CHOLECALCIFEROL (VITAMIN D3) 1,000 UNIT TABLET PO SCH (08:18)
[2019-05-18] MEDS: rOPINIRole 1 MG TABLET. PO SCH ×2 (08:18→21:31)
[2019-05-18] MEDS: CETIRIZINE HCL 10 MG TABLET PO SCH (08:18)
[2019-05-18] MEDS: GABAPENTIN 300 MG CAPSULE. PO SCH ×3 (08:22→21:31)
[2019-05-18 16:25] VITALS: BP 104/66
[2019-05-18] MEDS: risperiDONE 0.25 MG TABLET. PO SCH (21:31)
[2019-05-18] MEDS: traZODone 50 MG TABLET. PO SCH (21:31)
[2019-05-18] MEDS: ATORVASTATIN CALCIUM 10 MG TABLET. PO SCH (21:31)
[2019-05-18] MEDS: LATANOPROST 0.005% OPHTH SOLUTION 2.5ML BOTTLE. OU SCH (21:32)
[2019-05-18] MEDS: ENOXAPARIN 40 MG/0.4 ML SYRINGE. SQ SCH (21:32)
--- NOTE | 2019-05-18 21:51 | PN ---
DATE: 05/16/2019 PSYCHIATRIC PROGRESS NOTE This is a late entry 05/16/2019, covers the elements not covered in my initial note. SUBJECTIVE: I met with the patient in the evening of 05/16/2019. Overall, the patient is doing better. Slept 5-3/4 hours previous night. Remains on Amoxil for UTI. Little demanding, anxious at times. REVIEW OF SYSTEMS: Ambulation impaired, in wheelchair. No CV, , pulmonary, eye, ENT system symptoms on review. MENTAL STATUS EXAM: Oriented to herself and situation. Speech is coherent, abstraction fair, computation impaired, language function intact, attention span short. Mood and affect remains somewhat withdrawn at times. LABORATORY DATA: Reviewed. IMPRESSION: Unchanged from initial note. PLAN: No change from initial note. MAN Kamila ROYAL MD DR: ALLAN/luiz JOB#: [id number] / [id number]
--- NOTE | 2019-05-18 21:52 | PDOC ---
Exam Note: Kt Note: Please also refer to the separate dictated note~for this date of service dictated separately.~Patient seen individually. Discussed the patient with Nursing staff reviewed the chart.~Reviewed interim history and current functioning. Reviewed vital signs,~Labs/ Radiology~and current medications noted below. Continue current treatment with the changes noted in the dictated addendum note Assessment: Vital Signs/I&O: Vital Signs Date Time Temp Pulse Resp B/P (MAP) Pulse Ox O2 Delivery O2 Flow Rate FiO2 05/18/19 21:32 62 104/66 05/18/19 16:25 97.4 18 97 05/18/19 06:29 Room Air I & O 05/17/19 05/17/19 05/18/19 15:00 23:00 07:00 Intake Total 480 ml 240 ml 120 ml Output Total 800 ml Balance 480 ml 240 ml -680 ml Current Medications: I have reviewed the current psychotropics carefully including drug interactions. Risk benefit ratio favors no change other than as noted in my dictated progress note. Diagnosis: Problems: (1) Anxiety disorder (2) Bipolar affective disorder, mixed (3) Impulse control disorder (4) Major depressive disorder, recurrent episode (5) Paranoid delusion (6) Mild cognitive impairment AIME ROYAL MD May 18, 2019 21:52
--- NOTE | 2019-05-18 21:52 | PN ---
DATE: 05/17/2019 This late entry 05/17/2019 covers the elements not covered in my initial note. SUBJECTIVE: I met with the patient in the evening. The patient slept 5-3/4 hours previous night. She remains on Amoxil for her UTI. Overall, she has been more cooperative, less anxious and paranoid. REVIEW OF SYSTEMS: Ambulation impaired, in wheelchair. No CV, , pulmonary, eye system symptoms on review. MENTAL STATUS EXAM: Oriented to herself and situation. Speech is coherent, abstraction fair, computation impaired, language function intact, attention span short. Mood and affect somewhat withdrawn, less paranoid. LABORATORY DATA: Reviewed. IMPRESSION: Unchanged from initial note including urinary tract infection. PLAN: No change from initial note. MAN Kamila ROYAL MD DR: ALLAN/luiz JOB#: [id number] / [id number]
[2019-05-19] MEDS: SUCRALFATE 1 GM TABLET. PO SCH (05:25)
[2019-05-19] MEDS: FAMOTIDINE 20 MG TABLET PO SCH (05:25)
[2019-05-19] MEDS: LEVOTHYROXINE 25 MCG TABLET. PO SCH (05:25)
[2019-05-19] MEDS: LIDOCAINE 5% TOPICAL OINTMENT 35GM TUBE. TP SCH (06:36)
[2019-05-19] MEDS: oxyCODONE IR 5 MG TABLET PO PRN (06:36)
[2019-05-19 06:56] VITALS: BP 110/71
[2019-05-19] MEDS: ASPIRIN 81 MG TAB.CHEW PO SCH (08:11)
[2019-05-19] MEDS: AMOXICILLIN 250 MG CAPSULE PO SCH (08:12)
[2019-05-19 08:13] VITALS: BP 110/71
[2019-05-19] MEDS: AMIODARONE HCL 200 MG TABLET PO SCH (08:13)
[2019-05-19] MEDS: LACTOBACILLUS RHAMNOSUS GG 1 CAPSULE. PO SCH (08:13)
[2019-05-19] MEDS: METOPROLOL TART IMMED RELEASE 25 MG TABLET PO SCH (08:13)
[2019-05-19] MEDS: GABAPENTIN 300 MG CAPSULE. PO SCH (08:14)
[2019-05-19] MEDS: POLYETHYLENE GLYCOL 3350 17 GM PACKET. PO SCH (08:14)
[2019-05-19] MEDS: MAGNESIUM OXIDE 400 MG TABLET PO SCH (08:14)
[2019-05-19] MEDS: CHOLECALCIFEROL (VITAMIN D3) 1,000 UNIT TABLET PO SCH (08:14)
[2019-05-19] MEDS: ASCORBIC ACID 500 MG TABLET PO SCH (08:14)
[2019-05-19] MEDS: CETIRIZINE HCL 10 MG TABLET PO SCH (08:14)
[2019-05-19] MEDS: rOPINIRole 1 MG TABLET. PO SCH (08:14)
--- NOTE | 2019-05-19 18:43 | PDOC ---
Exam Note: Kt Note: Please also refer to the separate dictated note~for this date of service dictated separately.~Patient seen individually. Discussed the patient with Nursing staff reviewed the chart.~Reviewed interim history and current functioning. Reviewed vital signs,~Labs/ Radiology~and current medications noted below. Continue current treatment with the changes noted in the dictated addendum note Assessment: Vital Signs/I&O: Vital Signs Date Time Temp Pulse Resp B/P (MAP) Pulse Ox O2 Delivery O2 Flow Rate FiO2 05/19/19 08:13 60 110/71 05/19/19 07:36 20 05/19/19 06:56 97.8 93 05/18/19 06:29 Room Air I & O 05/18/19 05/18/19 05/19/19 14:59 22:59 06:59 Intake Total 480 ml 240 ml Output Total 750 ml Balance 480 ml 240 ml -750 ml Current Medications: I have reviewed the current psychotropics carefully including drug interactions. Risk benefit ratio favors no change other than as noted in my dictated progress note. Diagnosis: Problems: (1) Mild cognitive impairment (2) Major depressive disorder, recurrent episode (3) Impulse control disorder (4) Bipolar affective disorder, mixed (5) Anxiety disorder AIME ROYAL MD May 19, 2019 18:43
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
--- NOTE | 2019-05-21 02:36 | PN ---
DATE: 05/18/2019 PSYCHIATRIC PROGRESS NOTE This late entry of 05/18/2019 covers elements not covered in my initial note. SUBJECTIVE: I met with the patient in the evening. The patient slept 7 hours previous night. She remains fairly cooperative, a little anxious at times, not aggressive, less delusional. REVIEW OF SYSTEMS: No CV, , pulmonary, eye system symptoms on review. Reliability varies. Ambulation impaired, in wheelchair. MENTAL STATUS EXAM: Oriented to herself and situation. Speech is coherent, abstraction fair, computation impaired, language function intact. Mood and affect is improved. LABORATORY DATA: Reviewed. IMPRESSION: Unchanged from initial note. PLAN: No change from initial note. AIME ROYAL MD DR: ALLAN/luiz JOB#: [id number] / [id number]
== END 2019-05-19 13:06 | DRG 885 ==
LOC: ER 18:00 → GEROPSY 21:36
PROVIDERS: ADMIT Psychiatry & Neurology Psychiatry; ATTEND Psychiatry & Neurology Psychiatry
DX: F33.3 Major depressive disorder, recurrent, severe with psychotic symptoms (principal); J98.11 Atelectasis; N39.0 Urinary tract infection, site not specified; D50.9 Iron deficiency anemia, unspecified; E03.9 Hypothyroidism, unspecified; E11.22 Type 2 diabetes mellitus with diabetic chronic kidney disease; E11.51 Type 2 diabetes mellitus with diabetic peripheral angiopathy without gangrene; E78.00 Pure hypercholesterolemia, unspecified; E78.5 Hyperlipidemia, unspecified; F03.90 Unspecified dementia, unspecified severity, without behavioral disturbance, psychotic disturbance, mood disturbance, and anxiety; F63.9 Impulse disorder, unspecified; G25.81 Restless legs syndrome; I12.9 Hypertensive chronic kidney disease with stage 1 through stage 4 chronic kidney disease, or unspecified chronic kidney disease; I48.91 Unspecified atrial fibrillation; I25.10 Atherosclerotic heart disease of native coronary artery without angina pectoris; F41.9 Anxiety disorder, unspecified; K21.9 Gastro-esophageal reflux disease without esophagitis; K58.9 Irritable bowel syndrome, unspecified; K62.3 Rectal prolapse; K64.9 Unspecified hemorrhoids; M41.9 Scoliosis, unspecified; M46.02 Spinal enthesopathy, cervical region; M47.812 Spondylosis without myelopathy or radiculopathy, cervical region; N18.9 Chronic kidney disease, unspecified; Z66 Do not resuscitate; Z79.899 Other long term (current) drug therapy; M48.02 Spinal stenosis, cervical region; G89.29 Other chronic pain; M19.90 Unspecified osteoarthritis, unspecified site; Z88.8 Allergy status to other drugs, medicaments and biological substances; Z91.040 Latex allergy status
CPT/HCPCS: 36415; 70450; 71045; 72125; 73030; 73060; 80048; 80053; 80061; 80076; 80307; 81001; 82306; 82550; 83036; 83540; 83550; 83690; 83735; 83880; 84443; 84484; 85025; 85045; 85379; 85610; 85651; 85730; 86592; 87086; 87186; 93970; 96365; 96372; J0696; J1650; J7120; P9612; Q0162; 97116; 99285-25